=== PATIENT | male | born 1965 | race Caucasian/White ===

== ENCOUNTER → 2020-12-17 07:25 | Outpatient (CLI) | payer OTHER, SELFPAY ==
[2020-12-17 08:14] LABS: Add Manual Diff / Slide Review NO; Basophils Absolute Auto 0 /uL (0-100); Basophils Percent Auto 0.6 % (0-2); Eosinophils Absolute Auto 200 /uL (0-450); Eosinophils Percent Auto 3.5 % (2-4); Hematocrit 47.5 % (41-53); Hemoglobin 16.2 g/dL (13.5-17.5); Lymphocytes Absolute Auto 1300 /uL (1100-4500); Lymphocytes Percent Auto 25.3 % (25-40); Mean Corpuscular HGB Conc 34.2 % (30-36); Mean Corpuscular Hemoglobin 30.6 PG (26-34); Mean Corpuscular Volume 89.6 fL (80-100); Monocytes Absolute Auto 400 /uL (0-900); Monocytes Percent Auto 7.2 % (3-14); Neutrophils Absolute Auto 3300 /uL (1500-7000); Neutrophils Percent Auto 63.4 % (50-75); Platelet Count 128 X10^3/uL (150-400); Red Cell Distribution Width 13.2 % (11.6-14.8); White Blood Cell Count 5.1 X10^3/uL (4.5-11.0)
[2020-12-17 08:36] LABS: Alanine Aminotransferase 41 IU/L (<50); Albumin 4.7 g/dL (3.5-5.0); Albumin Globulin Ratio 1.8 (1.0-2.8); Alkaline Phosphatase 52 U/L (38-126); Aspartate Aminotransferase 29 IU/L (17-59); BUN Creatinine Ratio 19.8 (6-22); Bilirubin Total 0.8 mg/dL (0.2-1.3); Blood Urea Nitrogen 21 mg/dL (9-20); Calcium 9.6 mg/dL (8.4-10.2); Carbon Dioxide 29 mmol/L (22-32); Chloride 106 mmol/L (98-107); Cholesterol 187 mg/dL (140-199); Estimated Glomerular Filt Rate > 60.0 mL/min (>60); Globulin 2.6 g/dL (1.7-4.1); Glucose 113 mg/dL (70-100); HDL Cholesterol 49 mg/dL (40-60); HEMOLYSIS < 15 (0-50); LDL Cholesterol Calculated 120 mg/dL (<100); Potassium 5.1 mmol/L (3.4-5.1); Sodium 141 mmol/L (137-145); Total Protein 7.3 g/dL (6.3-8.2); Triglycerides 88 mg/dL (35-150)
[2020-12-17 08:51] LABS: Vitamin D 25 Hydroxy (D3) 52.1 ng/mL (30.0-100.0)
[2020-12-17 09:07] LABS: TSH w/ Reflex to FT4 2.31 uIU/mL (0.47-4.68)
[2020-12-17 09:08] LABS: Prostate Specific Antigen 0.649 ng/mL (0.10-4.00)
== END ==
PROVIDERS: PCP Family Medicine; Referring Provider Family Medicine; Visit Provider Family Medicine
DX: E55.9 Vitamin D deficiency, unspecified (principal); E78.5 Hyperlipidemia, unspecified; Z12.5 Encounter for screening for malignant neoplasm of prostate; Z13.29 Encounter for screening for other suspected endocrine disorder
CPT/HCPCS: 36415; 80053; 80061; 82306; 84153; 84443; 85025

== ENCOUNTER → 2022-04-05 07:04 | Outpatient (CLI) | payer OTHER, SELFPAY ==
[2022-04-05 08:04] LABS: Add Manual Diff / Slide Review NO; Basophils Absolute Auto 0 /uL (0-100); Basophils Percent Auto 0.6 % (0-2); Eosinophils Absolute Auto 200 /uL (0-450); Eosinophils Percent Auto 3.2 % (2-4); Hematocrit 45.5 % (41-53); Hemoglobin 15.5 g/dL (13.5-17.5); Lymphocytes Absolute Auto 1500 /uL (1100-4500); Lymphocytes Percent Auto 28.9 % (25-40); Mean Corpuscular HGB Conc 34.1 % (30-36); Mean Corpuscular Hemoglobin 30.2 PG (26-34); Mean Corpuscular Volume 88.6 fL (80-100); Monocytes Absolute Auto 400 /uL (0-900); Monocytes Percent Auto 7.5 % (3-14); Neutrophils Absolute Auto 3000 /uL (1500-7000); Neutrophils Percent Auto 59.8 % (50-75); Platelet Count 137 X10^3/uL (150-400); Red Blood Cell Count 5.14 X10^6/uL (4.5-5.9); Red Cell Distribution Width 13.2 % (11.6-14.8)
[2022-04-05 08:31] LABS: BUN Creatinine Ratio 15.4 (6-22); Blood Urea Nitrogen 16 mg/dL (9-20); Calcium 9.1 mg/dL (8.4-10.2); Carbon Dioxide 29 mmol/L (22-32); Chloride 106 mmol/L (98-107); Cholesterol 176 mg/dL (140-199); Estimated Glomerular Filt Rate > 60 mL/min (>60); Glucose 102 mg/dL (70-100); HDL Cholesterol 46 mg/dL (40-60); HEMOLYSIS < 15 (0-50); LDL Cholesterol Calculated 112 mg/dL (<100); Potassium 4.2 mmol/L (3.4-5.1); Sodium 141 mmol/L (137-145); Triglycerides 90 mg/dL (35-150)
[2022-04-05 08:55] LABS: Prostate Specific Antigen Scrn 0.671 ng/mL (0.1-4.0)
== END ==
PROVIDERS: PCP Family Medicine; Referring Provider Family Medicine; Visit Provider Family Medicine
DX: E78.2 Mixed hyperlipidemia (principal); Z12.5 Encounter for screening for malignant neoplasm of prostate
CPT/HCPCS: 36415; 80048; 80061; 85025; G0103

== ENCOUNTER → 2022-04-06 08:33 | Outpatient (CLI) | payer OTHER, SELFPAY ==
[2022-04-07 07:39] LABS: Fecal Immunochemical Test Negative (Negative)
== END ==
PROVIDERS: PCP Family Medicine; Referring Provider Family Medicine; Visit Provider Family Medicine
DX: Z12.11 Encounter for screening for malignant neoplasm of colon (principal)
CPT/HCPCS: 82274

== ENCOUNTER 2022-11-24 16:00 | Outpatient (RCR) | payer OTHER, SELFPAY ==
--- NOTE | 2022-07-27 12:25 | PT.OIE ---
Current Diagnoses Pain in left knee (07/27/22) Muscle weakness (generalized) (07/27/22) Difficulty in walking, not elsewhere classified (07/27/22) Past Medical History (Last Updated 04/01/22 @ 15:39 by Salvador Costello DO) Chicken pox (~1977) Chronic foot pain (~2004) Chronic neck and back pain (~2004) Chronic neck pain Chronic pain of left knee Eczema (~2006) Flu-like symptoms Hyperlipidemia Migraines (~1989) Patellofemoral syndrome Screen for colon cancer Shoulder pain (~2004) Sinusitis URI with cough and congestion Past Surgical History (Last Reviewed 02/12/20 @ 09:46 by Salvador Costello DO) H/O vasectomy (~2002) Visit Care Team Role Provider Type Other Providers Specialty: Address: Phone: Fax: Email: Salvador Costello DO Family Provider Physician Primary Care Provider Specialty: Family Practice Address: [address] [place] [address], [id number] Email: GOLD Saunders Attending Provider Non-Staff Referring Provider Specialty: Nursing [facility] [address] [place], [address] Email: Physical Therapy Initial Evaluation PT-OP-A Visit Information Start: 07/26/22 17:51 Freq: Status: Active Protocol: Document 07/27/22 10:47 [facility] (Rec: 07/27/22 12:25 [facility] [id number]) Out-Patient Physical Therapy Visit Information Visit Information Visit Type Initial Evaluation Visit Start Time 11:19 Visit Stop Time 12:03 Total Visit Minutes 44 Visit Number 10/31 Number of PHARMACEUTICAL DETAILER Visits 0 PT-OP-B Current Condition Start: 07/26/22 17:51 Freq: Status: Active Protocol: Document 07/27/22 10:47 [facility] (Rec: 07/27/22 12:25 [facility] [id number]) Current Condition History of Current Condition Onset Date 30 years Current Complaints L knee pain History of Current Condition Pt reports knee pain is an old issue that is ongoing that has just gotten worse. It started 30 years ago from twisting it in snow shoes in [place] and banged it. About 1 year ago, was bending down to do soething and he had a sudden sharp pain in L knee and it swelled up and stiffened up. SInce then, it sometimes feels like he is hyperextending it when he is going down hill or steps down and hurts. Pain is under knee cap but stiffness is more lat. No Xrays or MRIs. If he straigthens it and engages quads, it hurts.Pt reports also back issues. 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 Typically he walks for exercise 2x/day. HIs knee limits him. Typically, he would do a total of a couple miles a day w/his [employer]. He would like to be able to walk 3+ miles at a time. It gets to a point at about 2 miles then he starts to get pain and if he over does it - it starts swelling. Sometimes when going down curb , he get a little popping then it stiffens and swells. Last week he went hunting and that was difficult d/t having to walk on a lot of rocks and he says i paid for it. Pt wears custom orthotics d/t hammer toes and plantar fascitis B Prior Treatments and Tests none Treatment Goals Patient/Caregiver Goals Be able to walk longer distances, be able to walk w/o worry of hurting it, be able to do stairs and hills, be able to squat and get up/dwon from chair w/o pain. PT-OP-C Subjective Start: 07/26/22 17:51 Freq: Status: Active Protocol: Document 07/27/22 10:47 [facility] (Rec: 07/27/22 12:25 [facility] [id number]) Patient Questionnaires Lower Extremity Functional Scale LEFS Score 48 OP-PT Pain Assessment Location L knee Pain Location Details ant knee pain, lat knee stiffness Intensity 7 Scale Used Numeric (0 - 10) Description Dull,Sharp Description- Other stiffness; starts sharp then gets dull Frequency Frequent Pain Aggravating Factors Stair Climbing,Bending,Lifting Other Pain Aggravating Factors down stairs, down hills, uneven surfaces, sit too long, squat, sit to stand Pain Alleviating Factors Cold,Medication PT-OP-D Balance Start: 07/26/22 17:51 Freq: Status: Active Protocol: Document 07/27/22 10:47 [facility] (Rec: 07/27/22 12:25 [facility] [id number]) Balance Tests Single Limb Standing Single Limb- Right >30 sec Single Limb- Left >30 sec but more UE use and more wobbly-lat shear PT-OP-F Manual Assessment Start: 07/26/22 17:51 Freq: Status: Active Protocol: Document 07/27/22 10:47 [facility] (Rec: 07/27/22 12:25 [facility] [id number]) Manual Assessments Soft Tissue Assessment Soft Tissue Mobility Assessment med joint line tenderness, tightness of ITB, VL, VMO, HS, Calf Joint Mobility Assessment Joint Mobility Assessment IR of femur L; R ER; B ER of tibia, ER of R foot>L; more lat patella L PT-OP-G Mobility & Gait Start: 07/26/22 17:51 Freq: Status: Active Protocol: Document 07/27/22 10:47 [facility] (Rec: 07/27/22 12:25 [facility] [id number]) OP Gait Assessment Comments Gait Comments dec push off L>R , dec stance time L PT-OP-J Posture/Palpation/Skin Start: 07/26/22 17:51 Freq: Status: Active Protocol: Document 07/27/22 10:47 [facility] (Rec: 07/27/22 12:25 [facility] [id number]) Posture Evaluation [facility] Postural Classification System Lumbar Protective Mechanism Left AP 0 Lumbar Protective Mechanism Right AP 1 Lumbar Protective Mechanism Left PA 1 Lumbar Protective Mechanism Right PA 1 PT-OP-K Range of Motion Start: 07/26/22 17:51 Freq: Status: Active Protocol: Document 07/27/22 10:47 [facility] (Rec: 07/27/22 12:25 [facility] [id number]) Knee Goniometric Range of Motion Knee Right Flexion Active (degrees) 130 Extension Active (degrees) 4 Comments ankle ROM B: knee to walk 4.25 in B Left Flexion Active (degrees) 125 Extension Active (degrees) 8 Comments pain under patella PT-OP-L Special Tests Start: 07/26/22 17:51 Freq: Status: Active Protocol: Document 07/27/22 10:47 [facility] (Rec: 07/27/22 12:25 [facility] [id number]) Special Tests Knee Special Tests Teodoro's Test Test Results positive B tightness Meyer's Compression Test Results neg L Apley's Compression Test Results neg L Thessaly Test 5 Degrees Test Results neg L Fredrick Test Test Results neg L Tripp Chondromalacia Test Results positive L Fito's Test Results neg L Straight Leg Raise Test Results 45 deg B Gian Test Results positive B for TFL and hip flexor and RF tightness Valgus- 25 Degrees Comments mild pain and laxity L Varus- 25 Degrees Test Results neg L Posterior Draw Test Results neg L PT-OP-M Strength Start: 07/26/22 17:51 Freq: Status: Active Protocol: Document 07/27/22 10:47 [facility] (Rec: 07/27/22 12:25 [facility] [id number]) Hip Strength Hip Manual Muscle Testing Right Flexion (L2) 5 Normal Extension (S1) 4 Good Abduction 5 Normal Adduction 4+ Good+ External Rotation 5 Normal Internal Rotation 5 Normal Left Flexion (L2) 3+ Fair+ Extension (S1) 4- Good- Abduction 4 Good Adduction 3+ Fair+ External Rotation 4+ Good+ Internal Rotation 4- Good- Knee Strength Knee Manual Muscle Testing Right Flexion (S2) 5 Normal Extension (L3) 5 Normal Left Flexion (S2) 4 Good Extension (L3) 4 Good Comments pain ext Ankle/Foot Strength Ankle and Foot Manual Muscle Testing Right Dorsiflexion (L4) 5 Normal Plantarflexion (S1) 5 Normal Comments 20 heel raises B Left Dorsiflexion (L4) 5 Normal Plantarflexion (S1) 5 Normal Comments cues required for heel raises to keep knee straight-pain in knee-twinging PT-OP-T Assessment and Plan Start: 07/26/22 17:51 Freq: Status: Active Protocol: Document 07/27/22 10:47 [facility] (Rec: 07/27/22 12:25 [facility] [id number]) Physical Therapy Assessment Rehab Potential Rehabilitation Potential Good Evaluation Complexity Number of Personal Factors/Comorbidities 3 or More Number of Body Systems Impaired 4 or More Clinical Presentation at Evaluation Evolving Impairments Impairments Activity Tolerance,Balance, Functional Activities, Functional Mobility,Gait,Pain, Posture,ROM,Soft Tissue Mobility,Strength Goals balance Short Term Goal (STG) Pt will be able to do 30sec SLS on LLE w/o lat shear or signficiant instability to show ability to wt accept in LLE STG Duration 09/15 Student Assistant Goal (LTG) Pt will report no difficulty w /knee on uneven surfaces. LTG Duration 10/19/22 activities Short Term Goal (STG) Pt will be able to stand from a chair w/o pain in L knee STG Duration 09/15 Student Assistant Goal (LTG) Pt will be able to walk at least 3 miles on uneven surfaces w/o inc knee pain or swelling. LTG Duration 10/19/22 strength Short Term Goal (STG) Pt will be indep w/HEP STG Duration 09/15 Student Assistant Goal (LTG) pt will score at least 3/5 on LPM and 5/5 BLE strength w/o pain to show improved stability in order to inc pt ability to perform activity. LTG Duration 10/19/22 stairs Short Term Goal (STG) Pt will be able to ascend stairs without any pain in knee. STG Duration 09/15 Halfway Goal (LTG) Pt will be able to descend stairs without any pain in knee. LTG Duration 10/19/22 Assessment Summary Assessment Pt presents w/chronic knee pain (>30 years) with worsening in the past year and no history of treatment. He shows signs of mild med instability at MCL and has tenderness at joint line but no positive testing w/meniscal testing. He does have opposing rotations at tibfem joint which likely inc stress on knee and inc pt's lateral tracking of L patella which is likely a big culpret of his pain and swelling. He would benefit from skilled PT with focus on stability of hip, knee, ankle and core and improving mechanics to improve his ability to do ADLs and activity. Physical Therapy Plan Frequency and Duration Duration of treatment (weeks) 12 Plan of Care Start Date 07/27/22 Plan of Care End Date 10/19/22 Therapeutic Interventions Therapeutic Interventions Aquatic Therapy,Balance Training,Gait Training,Home Exercise Program,Joint Mobilizations,Manual Therapy, Neuromuscular Re-education, Orthotic/Prosthetic Management ,Patient/Caregiver Education, Self-Care/Home Management,Soft Tissue Mobilization,Taping, Therapeutic Activities, Therapeutic Exercises Modalities Cold Pack/Ice Massage,Electric Stimulation,Hot Packs, Infrared Therapy,Ultrasound Next Visit Focus/Plan Next Note Type Treatment Note Next Visit Plan start on bike, try mini squats , TKE standing w/tband, HS active stretch, bridge, teach roll out on foam roll and w/ roller, manual: ITB, quad STM, patellar mobs, tibfem mobs
--- NOTE | 2022-07-27 12:25 | PT.OPPOC ---
Physical, Occupational & Speech Therapy At [facility] Current Diagnoses Pain in left knee (07/27/22) Muscle weakness (generalized) (07/27/22) Difficulty in walking, not elsewhere classified (07/27/22) Visit Care Team Role Provider Type Other Providers Specialty: Address: Phone: Fax: Email: Salvador Costello DO Family Provider Physician Primary Care Provider Specialty: Family Practice Address: [address] [place] [address], [phone] Email: GOLD Saunders Attending Provider Non-Staff Referring Provider Specialty: Nursing [facility] [address], [place], [address] Email: Plan Of Care PT-OP-T Assessment and Plan Start: 07/26/22 17:51 Freq: Status: Active Protocol: Document 07/27/22 10:47 [facility] (Rec: 07/27/22 12:25 [facility] [id number]) Physical Therapy Assessment Rehab Potential Rehabilitation Potential Good Evaluation Complexity Number of Personal Factors/Comorbidities 3 or More Number of Body Systems Impaired 4 or More Clinical Presentation at Evaluation Evolving Impairments Impairments Activity Tolerance,Balance, Functional Activities, Functional Mobility,Gait,Pain, Posture,ROM,Soft Tissue Mobility,Strength Goals balance Short Term Goal (STG) Pt will be able to do 30sec SLS on LLE w/o lat shear or signficiant instability to show ability to wt accept in LLE STG Duration 09/15 Prison Goal (LTG) Pt will report no difficulty w /knee on uneven surfaces. LTG Duration 10/19/22 activities Short Term Goal (STG) Pt will be able to stand from a chair w/o pain in L knee STG Duration 09/15 Prison Goal (LTG) Pt will be able to walk at least 3 miles on uneven surfaces w/o inc knee pain or swelling. LTG Duration 10/19/22 strength Short Term Goal (STG) Pt will be indep w/HEP STG Duration 09/15 Route Cdl Driver Goal (LTG) pt will score at least 3/5 on LPM and 5/5 BLE strength w/o pain to show improved stability in order to inc pt ability to perform activity. LTG Duration 10/19/22 stairs Short Term Goal (STG) Pt will be able to ascend stairs without any pain in knee. STG Duration 09/15 Prison Goal (LTG) Pt will be able to descend stairs without any pain in knee. LTG Duration 10/19/22 Assessment Summary Assessment Pt presents w/chronic knee pain (>30 years) with worsening in the past year and no history of treatment. He shows signs of mild med instability at MCL and has tenderness at joint line but no positive testing w/meniscal testing. He does have opposing rotations at tibfem joint which likely inc stress on knee and inc pt's lateral tracking of L patella which is likely a big culpret of his pain and swelling. He would benefit from skilled PT with focus on stability of hip, knee, ankle and core and improving mechanics to improve his ability to do ADLs and activity. Physical Therapy Plan Frequency and Duration Duration of treatment (weeks) 12 Plan of Care Start Date 07/27/22 Plan of Care End Date 10/19/22 Therapeutic Interventions Therapeutic Interventions Aquatic Therapy,Balance Training,Gait Training,Home Exercise Program,Joint Mobilizations,Manual Therapy, Neuromuscular Re-education, Orthotic/Prosthetic Management ,Patient/Caregiver Education, Self-Care/Home Management,Soft Tissue Mobilization,Taping, Therapeutic Activities, Therapeutic Exercises Modalities Cold Pack/Ice Massage,Electric Stimulation,Hot Packs, Infrared Therapy,Ultrasound Next Visit Focus/Plan Next Note Type Treatment Note Next Visit Plan start on bike, try mini squats , TKE standing w/tband, HS active stretch, bridge, teach roll out on foam roll and w/ roller, manual: ITB, quad STM, patellar mobs, tibfem mobs Plan of Care Dates Plan of Care Start Date 07/27/22 Plan of Care End Date 10/19/22 Electronically Signed by: Kim Guzman, PT 07/27/22 3320 If you are in agreement with this Plan of Care, please return a signed and dated copy. I have reviewed this Plan of Care and certify that the skilled therapy services above are required to meet the patient?s needs. Physician Signature Date Printed Name and Credentials Clinical Instructor Signature Printed Name and Credentials
--- NOTE | 2022-08-06 09:00 | PT.OTN ---
Current Diagnoses Pain in left knee (08/06/22) Muscle weakness (generalized) (08/06/22) Difficulty in walking, not elsewhere classified (08/06/22) Physical Therapy Treatment Note PT-OP-A Visit Information Start: 07/26/22 17:51 Freq: Status: Active Protocol: Document 08/06/22 08:12 SP (Rec: 08/06/22 09:04 SP [id number]) Out-Patient Physical Therapy Visit Information Visit Information Visit Type Initial Evaluation Visit Start Time 08:15 Visit Stop Time 09:00 Total Visit Minutes 45 Visit Number 12/01 Number of EMR ANALYST Visits 1 PT-OP-B Current Condition Start: 07/26/22 17:51 Freq: Status: Active Protocol: Document 07/27/22 10:47 [facility] (Rec: 07/27/22 12:25 [facility] [id number]) Current Condition History of Current Condition Onset Date 30 years Current Complaints L knee pain History of Current Condition Pt reports knee pain is an old issue that is ongoing that has just gotten worse. It started 30 years ago from twisting it in snow shoes in [place] and banged it. About 1 year ago, was bending down to do soething and he had a sudden sharp pain in L knee and it swelled up and stiffened up. SInce then, it sometimes feels like he is hyperextending it when he is going down hill or steps down and hurts. Pain is under knee cap but stiffness is more lat. No Xrays or MRIs. If he straigthens it and engages quads, it hurts.Pt reports also back issues. 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 Typically he walks for exercise 2x/day. HIs knee limits him. Typically, he would do a total of a couple miles a day w/his [employer]. He would like to be able to walk 3+ miles at a time. It gets to a point at about 2 miles then he starts to get pain and if he over does it - it starts swelling. Sometimes when going down curb , he get a little popping then it stiffens and swells. Last week he went hunting and that was difficult d/t having to walk on a lot of rocks and he says i paid for it. Pt wears custom orthotics d/t hammer toes and plantar fascitis B Prior Treatments and Tests none Treatment Goals Patient/Caregiver Goals Be able to walk longer distances, be able to walk w/o worry of hurting it, be able to do stairs and hills, be able to squat and get up/dwon from chair w/o pain. PT-OP-C Subjective Start: 07/26/22 17:51 Freq: Status: Active Protocol: Document 08/06/22 08:12 SP (Rec: 08/06/22 09:04 SP [id number]) OP-PT Subjective Patient Comments Patient Comments Pt reports is R foot flared up after last tx with assessments had to perform, past issues and at some point will need to be looked at/ worke on. Has long history of LBP and tightness in HS that has caused plantarfascitis. R> L HS tightness reported. PT-OP-D Balance Start: 07/26/22 17:51 Freq: Status: Active Protocol: Document 07/27/22 10:47 [facility] (Rec: 07/27/22 12:25 [facility] [id number]) Balance Tests Single Limb Standing Single Limb- Right >30 sec Single Limb- Left >30 sec but more UE use and more wobbly-lat shear PT-OP-F Manual Assessment Start: 07/26/22 17:51 Freq: Status: Active Protocol: Document 07/27/22 10:47 [facility] (Rec: 07/27/22 12:25 [facility] [id number]) Manual Assessments Soft Tissue Assessment Soft Tissue Mobility Assessment med joint line tenderness, tightness of ITB, VL, VMO, HS, Calf Joint Mobility Assessment Joint Mobility Assessment IR of femur L; R ER; B ER of tibia, ER of R foot>L; more lat patella L PT-OP-G Mobility & Gait Start: 07/26/22 17:51 Freq: Status: Active Protocol: Document 07/27/22 10:47 [facility] (Rec: 07/27/22 12:25 [facility] [id number]) OP Gait Assessment Comments Gait Comments dec push off L>R , dec stance time L PT-OP-J Posture/Palpation/Skin Start: 07/26/22 17:51 Freq: Status: Active Protocol: Document 07/27/22 10:47 [facility] (Rec: 07/27/22 12:25 [facility] [id number]) Posture Evaluation Raymond Postural Classification System Lumbar Protective Mechanism Left AP 0 Lumbar Protective Mechanism Right AP 1 Lumbar Protective Mechanism Left PA 1 Lumbar Protective Mechanism Right PA 1 PT-OP-K Range of Motion Start: 07/26/22 17:51 Freq: Status: Active Protocol: Document 07/27/22 10:47 [facility] (Rec: 07/27/22 12:25 [facility] [id number]) Knee Goniometric Range of Motion Knee Right Flexion Active (degrees) 130 Extension Active (degrees) 4 Comments ankle ROM B: knee to walk 4.25 in B Left Flexion Active (degrees) 125 Extension Active (degrees) 8 Comments pain under patella PT-OP-L Special Tests Start: 07/26/22 17:51 Freq: Status: Active Protocol: Document 07/27/22 10:47 [facility] (Rec: 07/27/22 12:25 [facility] [id number]) Special Tests Knee Special Tests Teodoro's Test Test Results positive B tightness Meyer's Compression Test Results neg L Apley's Compression Test Results neg L Thessaly Test 5 Degrees Test Results neg L Fredrick Test Test Results neg L Tripp Chondromalacia Test Results positive L Fito's Test Results neg L Straight Leg Raise Test Results 45 deg B Gian Test Results positive B for TFL and hip flexor and RF tightness Valgus- 25 Degrees Comments mild pain and laxity L Varus- 25 Degrees Test Results neg L Posterior Draw Test Results neg L PT-OP-M Strength Start: 07/26/22 17:51 Freq: Status: Active Protocol: Document 07/27/22 10:47 [facility] (Rec: 07/27/22 12:25 [facility] [id number]) Hip Strength Hip Manual Muscle Testing Right Flexion (L2) 5 Normal Extension (S1) 4 Good Abduction 5 Normal Adduction 4+ Good+ External Rotation 5 Normal Internal Rotation 5 Normal Left Flexion (L2) 3+ Fair+ Extension (S1) 4- Good- Abduction 4 Good Adduction 3+ Fair+ External Rotation 4+ Good+ Internal Rotation 4- Good- Knee Strength Knee Manual Muscle Testing Right Flexion (S2) 5 Normal Extension (L3) 5 Normal Left Flexion (S2) 4 Good Extension (L3) 4 Good Comments pain ext Ankle/Foot Strength Ankle and Foot Manual Muscle Testing Right Dorsiflexion (L4) 5 Normal Plantarflexion (S1) 5 Normal Comments 20 heel raises B Left Dorsiflexion (L4) 5 Normal Plantarflexion (S1) 5 Normal Comments cues required for heel raises to keep knee straight-pain in knee-twinging PT-OP-Q Treatments Start: 07/26/22 17:51 Freq: Status: Active Protocol: Document 08/06/22 08:12 SP (Rec: 08/06/22 09:04 SP [id number]) Cardio Equipment Bicycle (Upright) Duration (Minutes) 6 Resistance 7 Seat Position 10 Other 78RPMs, Therapeutic Exercises Supine Exercises bridges Supine Exercise Name added to HEP: little wobbly core/ hip abd- cued slow Resistance AROM Reps/Minutes 5 s hold x10 reps Comments cued TA, neutral pelvis, bridge hold tolerant range: glut/quad fac Sitting Exercises stretching Sitting Exercise Name 1. HS 2. Piriformis stretching Side left Reps/Minutes 60 sec Comments good feedback response Standing Exercises TKE Standing Exercise Name added to HEP Side left Resistance TB #3 loop Reps/Minutes 3 sec hold [id number] Comments improved decrease pain L knee post self STMs and K taping Mini squat Standing Exercise Name added to HEP Side left Equipment Used hands light Reps/Minutes 5 sec hold x10 Comments cued knee alignment with and behind toes Other Exercises Self STMs Other Exercise Name added for home/work: HS, quad, ITB, calf; LB/glut ball on wal Side bilateral Equipment Used rolling pin vs foam roller Comments good feedback response to both Manual Therapy Treatment Joint Mobilizations Patella mobs Joint L Direction med/lat/ inf/superior glides Grade II Body Position Sitting Comments LLE extended Tends to track Taping ktaping Body Location L Comments medial glide around patella, C lateral taping Self-Care/Home Management Treatment Education Patient Education Home Exercise Program,Joint Protection,Pain Management Other Education Added bridging, TKE, Mini squat, STMs self, Ktaping L knee. PT-OP-T Assessment and Plan Start: 07/26/22 17:51 Freq: Status: Active Protocol: Document 08/06/22 08:12 SP (Rec: 08/06/22 09:04 SP [id number]) Physical Therapy Assessment Goals balance Short Term Goal (STG) Pt will be able to do 30sec SLS on LLE w/o lat shear or signficiant instability to show ability to wt accept in LLE STG Duration 11/30 Jail Goal (LTG) Pt will report no difficulty w /knee on uneven surfaces. LTG Duration 10/19/22 activities Short Term Goal (STG) Pt will be able to stand from a chair w/o pain in L knee STG Duration 09/15 [employer] Goal (LTG) Pt will be able to walk at least 3 miles on uneven surfaces w/o inc knee pain or swelling. LTG Duration 10/19/22 strength Short Term Goal (STG) Pt will be indep w/HEP STG Duration 09/15 [employer] Goal (LTG) pt will score at least 3/5 on LPM and 5/5 BLE strength w/o pain to show improved stability in order to inc pt ability to perform activity. LTG Duration 10/19/22 stairs Short Term Goal (STG) Pt will be able to ascend stairs without any pain in knee. STG Duration 09/15 [employer] Goal (LTG) Pt will be able to descend stairs without any pain in knee. LTG Duration 10/19/22 Assessment Summary Assessment Pt good feedback to instruction self STMs: ball wall, rolling stick, foam roller for decrease LE muscle tension and proper form for home/work. Added stretching for flexibililty around L knee and applied Ktaping medial support patellar tracking with good response. No adverse affects to TKE or mini squats today to continue at home. Understands how to modify if needed. Physical Therapy Plan Frequency and Duration Duration of treatment (weeks) 12 Plan of Care Start Date 07/27/22 Plan of Care End Date 10/19/22 Therapeutic Interventions Therapeutic Interventions Aquatic Therapy,Balance Training,Gait Training,Home Exercise Program,Joint Mobilizations,Manual Therapy, Neuromuscular Re-education, Orthotic/Prosthetic Management ,Patient/Caregiver Education, Self-Care/Home Management,Soft Tissue Mobilization,Taping, Therapeutic Activities, Therapeutic Exercises Modalities Cold Pack/Ice Massage,Electric Stimulation,Hot Packs, Infrared Therapy,Ultrasound Next Visit Focus/Plan Next Note Type Treatment Note Next Visit Plan Continue start on bike, reassess HEP added: mini squats, TKE standing w/tband, HS active stretch, bridge, teach roll out on foam roll and w/roller, manual: ITB, quad STM, patellar mobs performed last tx. Next assess if need tibfem mobs.
--- NOTE | 2022-08-10 09:00 | PT.OTN ---
Current Diagnoses Pain in left knee (08/10/22) Muscle weakness (generalized) (08/10/22) Difficulty in walking, not elsewhere classified (08/10/22) Physical Therapy Treatment Note PT-OP-A Visit Information Start: 07/26/22 17:51 Freq: Status: Active Protocol: Document 08/10/22 08:20 SP (Rec: 08/10/22 09:03 SP [id number]) Out-Patient Physical Therapy Visit Information Visit Information Visit Type Treatment Note Visit Note CHANEL Elena provided instruction and manual with pt under direct supervision of IDALMIS Deras. Visit Start Time 08:20 Visit Stop Time 09:00 Total Visit Minutes 40 Visit Number 3/15 Number of ONCOLOGY CONSULTANT Visits 2 PT-OP-B Current Condition Start: 07/26/22 17:51 Freq: Status: Active Protocol: Document 07/27/22 10:47 [facility] (Rec: 07/27/22 12:25 [facility] [id number]) Current Condition History of Current Condition Onset Date 30 years Current Complaints L knee pain History of Current Condition Pt reports knee pain is an old issue that is ongoing that has just gotten worse. It started 30 years ago from twisting it in snow shoes in [place] and banged it. About 1 year ago, was bending down to do soething and he had a sudden sharp pain in L knee and it swelled up and stiffened up. SInce then, it sometimes feels like he is hyperextending it when he is going down hill or steps down and hurts. Pain is under knee cap but stiffness is more lat. No Xrays or MRIs. If he straigthens it and engages quads, it hurts.Pt reports also back issues. 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 Typically he walks for exercise 2x/day. HIs knee limits him. Typically, he would do a total of a couple miles a day w/his [employer]. He would like to be able to walk 3+ miles at a time. It gets to a point at about 2 miles then he starts to get pain and if he over does it - it starts swelling. Sometimes when going down curb , he get a little popping then it stiffens and swells. Last week he went hunting and that was difficult d/t having to walk on a lot of rocks and he says i paid for it. Pt wears custom orthotics d/t hammer toes and plantar fascitis B Prior Treatments and Tests none Treatment Goals Patient/Caregiver Goals Be able to walk longer distances, be able to walk w/o worry of hurting it, be able to do stairs and hills, be able to squat and get up/dwon from chair w/o pain. PT-OP-C Subjective Start: 07/26/22 17:51 Freq: Status: Active Protocol: Document 08/10/22 08:20 SP (Rec: 08/10/22 09:03 SP [id number]) OP-PT Subjective Patient Comments Patient Comments Pt report the rolling and K taping helped for couple days, just removed K taping yesterday. He found the bridging toward end reps started to irritate knee so stopped. PT-OP-D Balance Start: 07/26/22 17:51 Freq: Status: Active Protocol: Document 07/27/22 10:47 [facility] (Rec: 07/27/22 12:25 [facility] [id number]) Balance Tests Single Limb Standing Single Limb- Right >30 sec Single Limb- Left >30 sec but more UE use and more wobbly-lat shear PT-OP-F Manual Assessment Start: 07/26/22 17:51 Freq: Status: Active Protocol: Document 07/27/22 10:47 [facility] (Rec: 07/27/22 12:25 [facility] [id number]) Manual Assessments Soft Tissue Assessment Soft Tissue Mobility Assessment med joint line tenderness, tightness of ITB, VL, VMO, HS, Calf Joint Mobility Assessment Joint Mobility Assessment IR of femur L; R ER; B ER of tibia, ER of R foot>L; more lat patella L PT-OP-G Mobility & Gait Start: 07/26/22 17:51 Freq: Status: Active Protocol: Document 07/27/22 10:47 [facility] (Rec: 07/27/22 12:25 [facility] [id number]) OP Gait Assessment Comments Gait Comments dec push off L>R , dec stance time L PT-OP-J Posture/Palpation/Skin Start: 07/26/22 17:51 Freq: Status: Active Protocol: Document 07/27/22 10:47 [facility] (Rec: 07/27/22 12:25 [facility] [id number]) Posture Evaluation Raymond Postural Classification System Lumbar Protective Mechanism Left AP 0 Lumbar Protective Mechanism Right AP 1 Lumbar Protective Mechanism Left PA 1 Lumbar Protective Mechanism Right PA 1 PT-OP-K Range of Motion Start: 07/26/22 17:51 Freq: Status: Active Protocol: Document 07/27/22 10:47 [facility] (Rec: 07/27/22 12:25 [facility] [id number]) Knee Goniometric Range of Motion Knee Right Flexion Active (degrees) 130 Extension Active (degrees) 4 Comments ankle ROM B: knee to walk 4.25 in B Left Flexion Active (degrees) 125 Extension Active (degrees) 8 Comments pain under patella PT-OP-L Special Tests Start: 07/26/22 17:51 Freq: Status: Active Protocol: Document 07/27/22 10:47 [facility] (Rec: 07/27/22 12:25 [facility] [id number]) Special Tests Knee Special Tests Teodoro's Test Test Results positive B tightness Meyer's Compression Test Results neg L Apley's Compression Test Results neg L Thessaly Test 5 Degrees Test Results neg L Fredrick Test Test Results neg L Tripp Chondromalacia Test Results positive L Fito's Test Results neg L Straight Leg Raise Test Results 45 deg B Gian Test Results positive B for TFL and hip flexor and RF tightness Valgus- 25 Degrees Comments mild pain and laxity L Varus- 25 Degrees Test Results neg L Posterior Draw Test Results neg L PT-OP-M Strength Start: 07/26/22 17:51 Freq: Status: Active Protocol: Document 07/27/22 10:47 [facility] (Rec: 07/27/22 12:25 [facility] [id number]) Hip Strength Hip Manual Muscle Testing Right Flexion (L2) 5 Normal Extension (S1) 4 Good Abduction 5 Normal Adduction 4+ Good+ External Rotation 5 Normal Internal Rotation 5 Normal Left Flexion (L2) 3+ Fair+ Extension (S1) 4- Good- Abduction 4 Good Adduction 3+ Fair+ External Rotation 4+ Good+ Internal Rotation 4- Good- Knee Strength Knee Manual Muscle Testing Right Flexion (S2) 5 Normal Extension (L3) 5 Normal Left Flexion (S2) 4 Good Extension (L3) 4 Good Comments pain ext Ankle/Foot Strength Ankle and Foot Manual Muscle Testing Right Dorsiflexion (L4) 5 Normal Plantarflexion (S1) 5 Normal Comments 20 heel raises B Left Dorsiflexion (L4) 5 Normal Plantarflexion (S1) 5 Normal Comments cues required for heel raises to keep knee straight-pain in knee-twinging PT-OP-Q Treatments Start: 07/26/22 17:51 Freq: Status: Active Protocol: Document 08/10/22 08:20 SP (Rec: 08/10/22 09:03 SP [id number]) Therapeutic Exercises Supine Exercises HS, ITB stretch Supine Exercise Name added to HEP Side left Equipment Used strap* vs seated Reps/Minutes 30 x2 Comments good form, very limited Quad set, SLR Supine Exercise Name assessed Side left Reps/Minutes x5 Comments challenged with maintaining full ext, sub patella pain bridges Supine Exercise Name reviewed HEP: improved core stab Resistance AROM Reps/Minutes 5 s hold x10 reps Standing Exercises ITB Stretch Side left Reps/Minutes 3 reps x30 Comments states more hip stretch than distal ITB Other Exercises Self STMs Other Exercise Name added for home/work: HS, quad, ITB, calf; LB/glut ball on wal Side bilateral Equipment Used rolling pin vs foam roller Comments good feedback response to both Manual Therapy Treatment Soft Tissue Mobilization L ITB Mobilization Type Instrument Assisted Intensity/Depth Moderate Body Position Sidelying Comments manual and instruction self with rolling pin and tool friction. Joint Mobilizations Patella mobs Joint L Direction med/lat/ inf/superior glides Grade II Body Position Sitting Comments LLE extended Tends to track Taping ktaping Body Location L Comments medial glide around patella, C lateral taping PT-OP-T Assessment and Plan Start: 07/26/22 17:51 Freq: Status: Active Protocol: Document 08/10/22 08:20 SP (Rec: 08/10/22 09:03 SP [id number]) Physical Therapy Assessment Goals balance Short Term Goal (STG) Pt will be able to do 30sec SLS on LLE w/o lat shear or signficiant instability to show ability to wt accept in LLE STG Duration 09/15 Aerospace Technician Goal (LTG) Pt will report no difficulty w /knee on uneven surfaces. LTG Duration 10/19/22 activities Short Term Goal (STG) Pt will be able to stand from a chair w/o pain in L knee STG Duration 09/15 Aerospace Technician Goal (LTG) Pt will be able to walk at least 3 miles on uneven surfaces w/o inc knee pain or swelling. LTG Duration 10/19/22 strength Short Term Goal (STG) Pt will be indep w/HEP STG Duration 09/15 Aerospace Technician Goal (LTG) pt will score at least 3/5 on LPM and 5/5 BLE strength w/o pain to show improved stability in order to inc pt ability to perform activity. LTG Duration 10/19/22 stairs Short Term Goal (STG) Pt will be able to ascend stairs without any pain in knee. STG Duration 09/15 Aerospace Technician Goal (LTG) Pt will be able to descend stairs without any pain in knee. LTG Duration 10/19/22 Assessment Summary Assessment Pt reported decrease tension post manual ITB, challenged getting distal ITB stretch. Limited HS hip flexion ROM but reported using strap vs seated helped to increase ROM. Physical Therapy Plan Frequency and Duration Duration of treatment (weeks) 12 Plan of Care Start Date 07/27/22 Plan of Care End Date 10/19/22 Therapeutic Interventions Therapeutic Interventions Aquatic Therapy,Balance Training,Gait Training,Home Exercise Program,Joint Mobilizations,Manual Therapy, Neuromuscular Re-education, Orthotic/Prosthetic Management ,Patient/Caregiver Education, Self-Care/Home Management,Soft Tissue Mobilization,Taping, Therapeutic Activities, Therapeutic Exercises Modalities Cold Pack/Ice Massage,Electric Stimulation,Hot Packs, Infrared Therapy,Ultrasound Next Visit Focus/Plan Next Note Type Treatment Note Next Visit Plan Continue start on bike, reassess HEP added: mini squats, TKE standing w/tband, HS active stretch, bridge, teach roll out on foam roll and w/roller, manual: ITB, quad STM, patellar mobs performed last tx. Next assess if need tibfem mobs.
--- NOTE | 2022-08-12 08:21 | PT.OTN ---
Current Diagnoses Pain in left knee (08/12/22) Muscle weakness (generalized) (08/12/22) Difficulty in walking, not elsewhere classified (08/12/22) Physical Therapy Treatment Note PT-OP-A Visit Information Start: 07/26/22 17:51 Freq: Status: Active Protocol: Document 08/12/22 07:30 [facility] (Rec: 08/12/22 08:21 [facility] [id number]) Out-Patient Physical Therapy Visit Information Visit Information Visit Type Treatment Note Visit Start Time 07:32 Visit Stop Time 08:14 Total Visit Minutes 42 Visit Number 4/15 Number of HOME HEALTH CARE PROVIDER Visits 0 PT-OP-B Current Condition Start: 07/26/22 17:51 Freq: Status: Active Protocol: Document 07/27/22 10:47 [facility] (Rec: 07/27/22 12:25 [facility] [id number]) Current Condition History of Current Condition Onset Date 30 years Current Complaints L knee pain History of Current Condition Pt reports knee pain is an old issue that is ongoing that has just gotten worse. It started 30 years ago from twisting it in snow shoes in [place] and banged it. About 1 year ago, was bending down to do soething and he had a sudden sharp pain in L knee and it swelled up and stiffened up. SInce then, it sometimes feels like he is hyperextending it when he is going down hill or steps down and hurts. Pain is under knee cap but stiffness is more lat. No Xrays or MRIs. If he straigthens it and engages quads, it hurts.Pt reports also back issues. 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 Typically he walks for exercise 2x/day. HIs knee limits him. Typically, he would do a total of a couple miles a day w/his [place]. He would like to be able to walk 3+ miles at a time. It gets to a point at about 2 miles then he starts to get pain and if he over does it - it starts swelling. Sometimes when going down curb , he get a little popping then it stiffens and swells. Last week he went hunting and that was difficult d/t having to walk on a lot of rocks and he says i paid for it. Pt wears custom orthotics d/t hammer toes and plantar fascitis B Prior Treatments and Tests none Treatment Goals Patient/Caregiver Goals Be able to walk longer distances, be able to walk w/o worry of hurting it, be able to do stairs and hills, be able to squat and get up/dwon from chair w/o pain. PT-OP-C Subjective Start: 07/26/22 17:51 Freq: Status: Active Protocol: Document 08/12/22 07:30 [facility] (Rec: 08/12/22 08:21 [facility] [id number]) OP-PT Subjective Patient Comments Patient Comments Pt reports he doesn't know if KTape helps. NOtes TKE still painful PT-OP-D Balance Start: 07/26/22 17:51 Freq: Status: Active Protocol: Document 07/27/22 10:47 [facility] (Rec: 07/27/22 12:25 [facility] [id number]) Balance Tests Single Limb Standing Single Limb- Right >30 sec Single Limb- Left >30 sec but more UE use and more wobbly-lat shear PT-OP-F Manual Assessment Start: 07/26/22 17:51 Freq: Status: Active Protocol: Document 07/27/22 10:47 [facility] (Rec: 07/27/22 12:25 [facility] [id number]) Manual Assessments Soft Tissue Assessment Soft Tissue Mobility Assessment med joint line tenderness, tightness of ITB, VL, VMO, HS, Calf Joint Mobility Assessment Joint Mobility Assessment IR of femur L; R ER; B ER of tibia, ER of R foot>L; more lat patella L PT-OP-G Mobility & Gait Start: 07/26/22 17:51 Freq: Status: Active Protocol: Document 07/27/22 10:47 [facility] (Rec: 07/27/22 12:25 [facility] [id number]) OP Gait Assessment Comments Gait Comments dec push off L>R , dec stance time L PT-OP-J Posture/Palpation/Skin Start: 07/26/22 17:51 Freq: Status: Active Protocol: Document 07/27/22 10:47 [facility] (Rec: 07/27/22 12:25 [facility] [id number]) Posture Evaluation [facility] Postural Classification System Lumbar Protective Mechanism Left AP 0 Lumbar Protective Mechanism Right AP 1 Lumbar Protective Mechanism Left PA 1 Lumbar Protective Mechanism Right PA 1 PT-OP-K Range of Motion Start: 07/26/22 17:51 Freq: Status: Active Protocol: Document 07/27/22 10:47 [facility] (Rec: 07/27/22 12:25 [facility] [id number]) Knee Goniometric Range of Motion Knee Right Flexion Active (degrees) 130 Extension Active (degrees) 4 Comments ankle ROM B: knee to walk 4.25 in B Left Flexion Active (degrees) 125 Extension Active (degrees) 8 Comments pain under patella PT-OP-L Special Tests Start: 07/26/22 17:51 Freq: Status: Active Protocol: Document 07/27/22 10:47 [facility] (Rec: 07/27/22 12:25 [facility] [id number]) Special Tests Knee Special Tests Teodoro's Test Test Results positive B tightness Meyer's Compression Test Results neg L Apley's Compression Test Results neg L Thessaly Test 5 Degrees Test Results neg L Fredrick Test Test Results neg L Tripp Chondromalacia Test Results positive L Fito's Test Results neg L Straight Leg Raise Test Results 45 deg B Gian Test Results positive B for TFL and hip flexor and RF tightness Valgus- 25 Degrees Comments mild pain and laxity L Varus- 25 Degrees Test Results neg L Posterior Draw Test Results neg L PT-OP-M Strength Start: 07/26/22 17:51 Freq: Status: Active Protocol: Document 07/27/22 10:47 [facility] (Rec: 07/27/22 12:25 [facility] [id number]) Hip Strength Hip Manual Muscle Testing Right Flexion (L2) 5 Normal Extension (S1) 4 Good Abduction 5 Normal Adduction 4+ Good+ External Rotation 5 Normal Internal Rotation 5 Normal Left Flexion (L2) 3+ Fair+ Extension (S1) 4- Good- Abduction 4 Good Adduction 3+ Fair+ External Rotation 4+ Good+ Internal Rotation 4- Good- Knee Strength Knee Manual Muscle Testing Right Flexion (S2) 5 Normal Extension (L3) 5 Normal Left Flexion (S2) 4 Good Extension (L3) 4 Good Comments pain ext Ankle/Foot Strength Ankle and Foot Manual Muscle Testing Right Dorsiflexion (L4) 5 Normal Plantarflexion (S1) 5 Normal Comments 20 heel raises B Left Dorsiflexion (L4) 5 Normal Plantarflexion (S1) 5 Normal Comments cues required for heel raises to keep knee straight-pain in knee-twinging PT-OP-Q Treatments Start: 07/26/22 17:51 Freq: Status: Active Protocol: Document 08/12/22 07:30 [facility] (Rec: 08/12/22 08:21 [facility] [id number]) Cardio Equipment Bicycle (Upright) Duration (Minutes) 5 Resistance 7 Seat Position 10 Other 78RPMs, Therapeutic Exercises Supine Exercises Quad set, SLR Supine Exercise Name quad set only Side left Equipment Used towel rolled behind Reps/Minutes 5 sec x10 bridges Supine Exercise Name reviewed HEP: improved core stab Resistance AROM Reps/Minutes 5 s hold x3 reps Standing Exercises stretch Standing Exercise Name 1.active HS stretch 2. quad Side left Reps/Minutes 1. 10 sec x5 2. 30 sec TKE Side left Resistance TB #3 loop Comments took out of HEP d/t pain Mini squat Standing Exercise Name review HEP Side left Equipment Used hands light Reps/Minutes 5 sec hold x10 Comments cued knee alignment with and behind toes Manual Therapy Treatment Soft Tissue Mobilization L ITB Body Location along ITB & VL Mobilization Type Rolling,Sustained Pressure Intensity/Depth Moderate Body Position Sidelying Joint Mobilizations hip Joint L Direction on axis ER FM tibfib Joint L Direction distraction & AP FM Tibfem Joint L AP On femur FM Patella mobs Joint L Direction med/ inf/superior glides Grade III Body Position Supine PT-OP-T Assessment and Plan Start: 07/26/22 17:51 Freq: Status: Active Protocol: Document 08/12/22 07:30 [facility] (Rec: 08/12/22 08:21 [facility] [id number]) Physical Therapy Assessment Goals balance Short Term Goal (STG) Pt will be able to do 30sec SLS on LLE w/o lat shear or signficiant instability to show ability to wt accept in LLE STG Duration 09/15 Residential Goal (LTG) Pt will report no difficulty w /knee on uneven surfaces. LTG Duration 10/19/22 activities Short Term Goal (STG) Pt will be able to stand from a chair w/o pain in L knee STG Duration 09/15 Hat Marker Goal (LTG) Pt will be able to walk at least 3 miles on uneven surfaces w/o inc knee pain or swelling. LTG Duration 10/19/22 strength Short Term Goal (STG) Pt will be indep w/HEP STG Duration 09/15 Residential Goal (LTG) pt will score at least 3/5 on LPM and 5/5 BLE strength w/o pain to show improved stability in order to inc pt ability to perform activity. LTG Duration 10/19/22 stairs Short Term Goal (STG) Pt will be able to ascend stairs without any pain in knee. STG Duration 09/15 Residential Goal (LTG) Pt will be able to descend stairs without any pain in knee. LTG Duration 10/19/22 Assessment Summary Assessment Pt able to do more full range w/squats. Cut out TKE and replaced w/quad set w/rolled towel. Adjusted HS stretch to more active for better release . Physical Therapy Plan Frequency and Duration Duration of treatment (weeks) 12 Plan of Care Start Date 07/27/22 Plan of Care End Date 10/19/22 Next Visit Focus/Plan Next Note Type Treatment Note Next Visit Plan work on quad engagemnt w/o pain, work on hip strengthening (sidestep etc), manual to ITB/VL line & along VMO to improve patellar tracking
--- NOTE | 2022-08-17 08:00 | PT-OP ANOTE ---
Pt cancelled today's appt and the next 4 >24hrs in advance due to jury duty.
--- NOTE | 2022-08-27 08:15 | PT.OTN ---
Current Diagnoses Pain in left knee (08/27/22) Muscle weakness (generalized) (08/27/22) Difficulty in walking, not elsewhere classified (08/27/22) Physical Therapy Treatment Note PT-OP-A Visit Information Start: 07/26/22 17:51 Freq: Status: Active Protocol: Document 08/27/22 07:17 [facility] (Rec: 08/27/22 10:02 [facility] [id number]) Out-Patient Physical Therapy Visit Information Visit Information Visit Type Treatment Note Visit Note CHANEL Elena lead treatment, supervised by IDALMIS Ho Visit Start Time 07:35 Visit Stop Time 08:15 Total Visit Minutes 40 Visit Number 02/28 Number of PHP LAMP DEVELOPER Visits 1 PT-OP-B Current Condition Start: 07/26/22 17:51 Freq: Status: Active Protocol: Document 07/27/22 10:47 [facility] (Rec: 07/27/22 12:25 [facility] [id number]) Current Condition History of Current Condition Onset Date 30 years Current Complaints L knee pain History of Current Condition Pt reports knee pain is an old issue that is ongoing that has just gotten worse. It started 30 years ago from twisting it in snow shoes in [place] and banged it. About 1 year ago, was bending down to do soething and he had a sudden sharp pain in L knee and it swelled up and stiffened up. SInce then, it sometimes feels like he is hyperextending it when he is going down hill or steps down and hurts. Pain is under knee cap but stiffness is more lat. No Xrays or MRIs. If he straigthens it and engages quads, it hurts.Pt reports also back issues. 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 Typically he walks for exercise 2x/day. HIs knee limits him. Typically, he would do a total of a couple miles a day w/his [place]. He would like to be able to walk 3+ miles at a time. It gets to a point at about 2 miles then he starts to get pain and if he over does it - it starts swelling. Sometimes when going down curb , he get a little popping then it stiffens and swells. Last week he went hunting and that was difficult d/t having to walk on a lot of rocks and he says i paid for it. Pt wears custom orthotics d/t hammer toes and plantar fascitis B Prior Treatments and Tests none Treatment Goals Patient/Caregiver Goals Be able to walk longer distances, be able to walk w/o worry of hurting it, be able to do stairs and hills, be able to squat and get up/dwon from chair w/o pain. PT-OP-C Subjective Start: 07/26/22 17:51 Freq: Status: Active Protocol: Document 08/27/22 07:17 TS (Rec: 08/27/22 10:02 TS [id number]) OP-PT Subjective Patient Comments Patient Comments Pt reports his L knee has been doing well and has been compliant with his HEP. PT-OP-D Balance Start: 07/26/22 17:51 Freq: Status: Active Protocol: Document 07/27/22 10:47 [facility] (Rec: 07/27/22 12:25 [facility] [id number]) Balance Tests Single Limb Standing Single Limb- Right >30 sec Single Limb- Left >30 sec but more UE use and more wobbly-lat shear PT-OP-F Manual Assessment Start: 07/26/22 17:51 Freq: Status: Active Protocol: Document 07/27/22 10:47 [facility] (Rec: 07/27/22 12:25 [facility] [id number]) Manual Assessments Soft Tissue Assessment Soft Tissue Mobility Assessment med joint line tenderness, tightness of ITB, VL, VMO, HS, Calf Joint Mobility Assessment Joint Mobility Assessment IR of femur L; R ER; B ER of tibia, ER of R foot>L; more lat patella L PT-OP-G Mobility & Gait Start: 07/26/22 17:51 Freq: Status: Active Protocol: Document 07/27/22 10:47 [facility] (Rec: 07/27/22 12:25 [facility] [id number]) OP Gait Assessment Comments Gait Comments dec push off L>R , dec stance time L PT-OP-J Posture/Palpation/Skin Start: 07/26/22 17:51 Freq: Status: Active Protocol: Document 07/27/22 10:47 [facility] (Rec: 07/27/22 12:25 [facility] [id number]) Posture Evaluation [facility] Postural Classification System Lumbar Protective Mechanism Left AP 0 Lumbar Protective Mechanism Right AP 1 Lumbar Protective Mechanism Left PA 1 Lumbar Protective Mechanism Right PA 1 PT-OP-K Range of Motion Start: 07/26/22 17:51 Freq: Status: Active Protocol: Document 07/27/22 10:47 [facility] (Rec: 07/27/22 12:25 [facility] [id number]) Knee Goniometric Range of Motion Knee Right Flexion Active (degrees) 130 Extension Active (degrees) 4 Comments ankle ROM B: knee to walk 4.25 in B Left Flexion Active (degrees) 125 Extension Active (degrees) 8 Comments pain under patella PT-OP-L Special Tests Start: 07/26/22 17:51 Freq: Status: Active Protocol: Document 07/27/22 10:47 [facility] (Rec: 07/27/22 12:25 [facility] [id number]) Special Tests Knee Special Tests Teodoro's Test Test Results positive B tightness Meyer's Compression Test Results neg L Apley's Compression Test Results neg L Thessaly Test 5 Degrees Test Results neg L Fredrick Test Test Results neg L Tripp Chondromalacia Test Results positive L Fito's Test Results neg L Straight Leg Raise Test Results 45 deg B Gian Test Results positive B for TFL and hip flexor and RF tightness Valgus- 25 Degrees Comments mild pain and laxity L Varus- 25 Degrees Test Results neg L Posterior Draw Test Results neg L PT-OP-M Strength Start: 07/26/22 17:51 Freq: Status: Active Protocol: Document 07/27/22 10:47 [facility] (Rec: 07/27/22 12:25 [facility] [id number]) Hip Strength Hip Manual Muscle Testing Right Flexion (L2) 5 Normal Extension (S1) 4 Good Abduction 5 Normal Adduction 4+ Good+ External Rotation 5 Normal Internal Rotation 5 Normal Left Flexion (L2) 3+ Fair+ Extension (S1) 4- Good- Abduction 4 Good Adduction 3+ Fair+ External Rotation 4+ Good+ Internal Rotation 4- Good- Knee Strength Knee Manual Muscle Testing Right Flexion (S2) 5 Normal Extension (L3) 5 Normal Left Flexion (S2) 4 Good Extension (L3) 4 Good Comments pain ext Ankle/Foot Strength Ankle and Foot Manual Muscle Testing Right Dorsiflexion (L4) 5 Normal Plantarflexion (S1) 5 Normal Comments 20 heel raises B Left Dorsiflexion (L4) 5 Normal Plantarflexion (S1) 5 Normal Comments cues required for heel raises to keep knee straight-pain in knee-twinging PT-OP-Q Treatments Start: 07/26/22 17:51 Freq: Status: Active Protocol: Document 08/27/22 07:17 [facility] (Rec: 08/27/22 10:02 TS [id number]) Therapeutic Exercises Standing Exercises Side Stepping Equipment Used LVL 2 Reps/Minutes 1x10 lvl 2, 1x10 no res Comments Pain with and without res, L ITB pain/unstable discontinue for moment,. 4 way hip Standing Exercise Name Added to HEP Side bilateral Equipment Used LVL 1 Reps/Minutes 2x10 Comments Some LOB with adduction, requires chair support Mini squat Side left Equipment Used hands light Reps/Minutes 5 sec hold x10 Comments Good carryover of form, has been doing at home Manual Therapy Treatment Soft Tissue Mobilization L ITB Body Location along ITB & VL Mobilization Type Rolling Intensity/Depth Moderate Body Position Sidelying Comments manual, more sensitive on L side than R Joint Mobilizations tibfib Joint L Direction distraction & AP FM Comments Manual, knee flexed Tibfem Joint L AP On femur FM Comments Manual, supine towel behind knee Patella mobs Joint L Direction med/ inf/superior glides Grade III Body Position Supine Comments Manual, instructed to perform at home PT-OP-T Assessment and Plan Start: 07/26/22 17:51 Freq: Status: Active Protocol: Document 08/27/22 07:17 [facility] (Rec: 08/27/22 10:02 TS [id number]) Physical Therapy Assessment Goals balance Short Term Goal (STG) Pt will be able to do 30sec SLS on LLE w/o lat shear or signficiant instability to show ability to wt accept in LLE STG Duration 09/15 Halfway Goal (LTG) Pt will report no difficulty w /knee on uneven surfaces. LTG Duration 10/19/22 activities Short Term Goal (STG) Pt will be able to stand from a chair w/o pain in L knee STG Duration 09/15 Halfway Goal (LTG) Pt will be able to walk at least 3 miles on uneven surfaces w/o inc knee pain or swelling. LTG Duration 10/19/22 strength Short Term Goal (STG) Pt will be indep w/HEP STG Duration 09/15 Halfway Goal (LTG) pt will score at least 3/5 on LPM and 5/5 BLE strength w/o pain to show improved stability in order to inc pt ability to perform activity. LTG Duration 10/19/22 stairs Short Term Goal (STG) Pt will be able to ascend stairs without any pain in knee. STG Duration 09/15 Auto Porter Goal (LTG) Pt will be able to descend stairs without any pain in knee. LTG Duration 10/19/22 Assessment Summary Assessment Pt continues to have sensitivity to L ITB vs R side . Pt had pain in L knee with sidestepping when leading with LLE. Pt responded well to 4 way hip ex without any pain, required cues for posture and core activation. Pt will continue to benefit from intervention to improve wbering on L knee and strength . Physical Therapy Plan Frequency and Duration Duration of treatment (weeks) 12 Plan of Care Start Date 07/27/22 Plan of Care End Date 10/19/22 Therapeutic Interventions Therapeutic Interventions Aquatic Therapy,Balance Training,Gait Training,Home Exercise Program,Joint Mobilizations,Manual Therapy, Neuromuscular Re-education, Orthotic/Prosthetic Management ,Patient/Caregiver Education, Self-Care/Home Management,Soft Tissue Mobilization,Taping, Therapeutic Activities, Therapeutic Exercises Modalities Cold Pack/Ice Massage,Electric Stimulation,Hot Packs, Infrared Therapy,Ultrasound Next Visit Focus/Plan Next Visit Plan Focus on single LLE ex. SLS, toe taps, SL deadlift, step ups on bosu.
--- NOTE | 2022-09-01 10:28 | PT.OTN ---
Addendum entered and electronically signed by Georgia Lopez PTA 09/01/22 16:58: SPTA meant to state in assessment/ plan step downs, not toe taps. Original Note: Current Diagnoses Pain in left knee (09/01/22) Muscle weakness (generalized) (09/01/22) Difficulty in walking, not elsewhere classified (09/01/22) Physical Therapy Treatment Note PT-OP-A Visit Information Start: 07/26/22 17:51 Freq: Status: Active Protocol: Document 09/01/22 09:36 TS (Rec: 09/01/22 12:00 TS [id number]) Out-Patient Physical Therapy Visit Information Visit Information Visit Type Treatment Note Visit Note SPTA [place]es lead treatment, supervised by IDALMIS Ho Visit Start Time 09:50 Visit Stop Time 10:28 Total Visit Minutes 38 Visit Number 03/31 Number of PURCHASING OFFICER Visits 2 PT-OP-B Current Condition Start: 07/26/22 17:51 Freq: Status: Active Protocol: Document 07/27/22 10:47 [facility] (Rec: 07/27/22 12:25 [facility] [id number]) Current Condition History of Current Condition Onset Date 30 years Current Complaints L knee pain History of Current Condition Pt reports knee pain is an old issue that is ongoing that has just gotten worse. It started 30 years ago from twisting it in snow shoes in [place] and banged it. About 1 year ago, was bending down to do soething and he had a sudden sharp pain in L knee and it swelled up and stiffened up. SInce then, it sometimes feels like he is hyperextending it when he is going down hill or steps down and hurts. Pain is under knee cap but stiffness is more lat. No Xrays or MRIs. If he straigthens it and engages quads, it hurts.Pt reports also back issues. 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 Typically he walks for exercise 2x/day. HIs knee limits him. Typically, he would do a total of a couple miles a day w/his [place]. He would like to be able to walk 3+ miles at a time. It gets to a point at about 2 miles then he starts to get pain and if he over does it - it starts swelling. Sometimes when going down curb , he get a little popping then it stiffens and swells. Last week he went hunting and that was difficult d/t having to walk on a lot of rocks and he says i paid for it. Pt wears custom orthotics d/t hammer toes and plantar fascitis B Prior Treatments and Tests none Treatment Goals Patient/Caregiver Goals Be able to walk longer distances, be able to walk w/o worry of hurting it, be able to do stairs and hills, be able to squat and get up/dwon from chair w/o pain. PT-OP-C Subjective Start: 07/26/22 17:51 Freq: Status: Active Protocol: Document 09/01/22 09:36 TS (Rec: 09/01/22 12:00 TS [id number]) OP-PT Subjective Patient Comments Patient Comments Pt reports he feels stiff on stance leg with 4 way hip ex. Reports the self-stm with rolling pin is helping with the stifness in knee. PT-OP-D Balance Start: 07/26/22 17:51 Freq: Status: Active Protocol: Document 07/27/22 10:47 [facility] (Rec: 07/27/22 12:25 [facility] [id number]) Balance Tests Single Limb Standing Single Limb- Right >30 sec Single Limb- Left >30 sec but more UE use and more wobbly-lat shear PT-OP-F Manual Assessment Start: 07/26/22 17:51 Freq: Status: Active Protocol: Document 07/27/22 10:47 [facility] (Rec: 07/27/22 12:25 [facility] [id number]) Manual Assessments Soft Tissue Assessment Soft Tissue Mobility Assessment med joint line tenderness, tightness of ITB, VL, VMO, HS, Calf Joint Mobility Assessment Joint Mobility Assessment IR of femur L; R ER; B ER of tibia, ER of R foot>L; more lat patella L PT-OP-G Mobility & Gait Start: 07/26/22 17:51 Freq: Status: Active Protocol: Document 07/27/22 10:47 [facility] (Rec: 07/27/22 12:25 [facility] [id number]) OP Gait Assessment Comments Gait Comments dec push off L>R , dec stance time L PT-OP-J Posture/Palpation/Skin Start: 10/10/22 17:51 Freq: Status: Active Protocol: Document 07/27/22 10:47 [facility] (Rec: 07/27/22 12:25 [facility] [id number]) Posture Evaluation [facility] Postural Classification System Lumbar Protective Mechanism Left AP 0 Lumbar Protective Mechanism Right AP 1 Lumbar Protective Mechanism Left PA 1 Lumbar Protective Mechanism Right PA 1 PT-OP-K Range of Motion Start: 07/26/22 17:51 Freq: Status: Active Protocol: Document 07/27/22 10:47 [facility] (Rec: 07/27/22 12:25 [facility] [id number]) Knee Goniometric Range of Motion Knee Right Flexion Active (degrees) 130 Extension Active (degrees) 4 Comments ankle ROM B: knee to walk 4.25 in B Left Flexion Active (degrees) 125 Extension Active (degrees) 8 Comments pain under patella PT-OP-L Special Tests Start: 07/26/22 17:51 Freq: Status: Active Protocol: Document 07/27/22 10:47 [facility] (Rec: 07/27/22 12:25 [facility] [id number]) Special Tests Knee Special Tests Teodoro's Test Test Results positive B tightness Meyer's Compression Test Results neg L Apley's Compression Test Results neg L Thessaly Test 5 Degrees Test Results neg L Fredrick Test Test Results neg L Tripp Chondromalacia Test Results positive L Fito's Test Results neg L Straight Leg Raise Test Results 45 deg B Gian Test Results positive B for TFL and hip flexor and RF tightness Valgus- 25 Degrees Comments mild pain and laxity L Varus- 25 Degrees Test Results neg L Posterior Draw Test Results neg L PT-OP-M Strength Start: 07/26/22 17:51 Freq: Status: Active Protocol: Document 07/27/22 10:47 [facility] (Rec: 07/27/22 12:25 [facility] [id number]) Hip Strength Hip Manual Muscle Testing Right Flexion (L2) 5 Normal Extension (S1) 4 Good Abduction 5 Normal Adduction 4+ Good+ External Rotation 5 Normal Internal Rotation 5 Normal Left Flexion (L2) 3+ Fair+ Extension (S1) 4- Good- Abduction 4 Good Adduction 3+ Fair+ External Rotation 4+ Good+ Internal Rotation 4- Good- Knee Strength Knee Manual Muscle Testing Right Flexion (S2) 5 Normal Extension (L3) 5 Normal Left Flexion (S2) 4 Good Extension (L3) 4 Good Comments pain ext Ankle/Foot Strength Ankle and Foot Manual Muscle Testing Right Dorsiflexion (L4) 5 Normal Plantarflexion (S1) 5 Normal Comments 20 heel raises B Left Dorsiflexion (L4) 5 Normal Plantarflexion (S1) 5 Normal Comments cues required for heel raises to keep knee straight-pain in knee-twinging PT-OP-Q Treatments Start: 07/26/22 17:51 Freq: Status: Active Protocol: Document 09/01/22 09:36 TS (Rec: 09/01/22 12:00 TS [id number]) Cardio Equipment Bicycle (Upright) Duration (Minutes) 5 Resistance 7 Seat Position 9 Other 78RPMs, Distance Therapeutic Exercises Sitting Exercises HS Stretch Side bilateral Equipment Used Chair Reps/Minutes 1x30 Comments Cues for hip hinge Standing Exercises Step downs Side bilateral Equipment Used 6 step Reps/Minutes 2x10 Comments Cues for knee alignment Mini Lunge Bosu Side bilateral Reps/Minutes 1x10 Comments Cues for knee lignment behind toes Single Leg Deadlift Standing Exercise Name Added to HEP Equipment Used Chair for support Reps/Minutes 2x10 Comments Cues for hip alignment and knee alignment with foot. SLS Side bilateral Equipment Used // bars Reps/Minutes 30 secs on R&L Comments Left fatigues quickly 4 way hip Standing Exercise Name Reviewed for HEP Side bilateral Equipment Used LVL 1 Reps/Minutes 1x10 Comments Minor LOB during stance on R leg Neuro Re-Education Treatment Balance Activities Tandem Walk Details HT's, Backwards Equipment // Reps/Duration 3x10, 1x10 Backwards Comments Cues for hip and core activation PT-OP-T Assessment and Plan Start: 07/26/22 17:51 Freq: Status: Active Protocol: Document 09/01/22 09:36 TS (Rec: 09/01/22 12:00 TS [id number]) Physical Therapy Assessment Goals balance Short Term Goal (STG) Pt will be able to do 30sec SLS on LLE w/o lat shear or signficiant instability to show ability to wt accept in LLE STG Duration 09/15 Residential Goal (LTG) Pt will report no difficulty w /knee on uneven surfaces. LTG Duration 10/19/22 activities Short Term Goal (STG) Pt will be able to stand from a chair w/o pain in L knee STG Duration 09/15 Ship Washer Goal (LTG) Pt will be able to walk at least 3 miles on uneven surfaces w/o inc knee pain or swelling. LTG Duration 10/19/22 strength Short Term Goal (STG) Pt will be indep w/HEP STG Duration 09/15 Ship Washer Goal (LTG) pt will score at least 3/5 on LPM and 5/5 BLE strength w/o pain to show improved stability in order to inc pt ability to perform activity. LTG Duration 10/19/22 stairs Short Term Goal (STG) Pt will be able to ascend stairs without any pain in knee. STG Duration 09/15 Ship Washer Goal (LTG) Pt will be able to descend stairs without any pain in knee. LTG Duration 10/19/22 Assessment Summary Assessment Pt progressed single leg activities this treatment. Requires some cueing for knee slignment during toe taps and lunges on bosu. Pt performed SLS 30 secs on each LE, left fatiguing quickly. Pt would benefit from continued intervention for improved strength, activity tolerance and balance in LEs. Physical Therapy Plan Frequency and Duration Duration of treatment (weeks) 12 Plan of Care Start Date 07/27/22 Plan of Care End Date 10/19/22 Therapeutic Interventions Therapeutic Interventions Aquatic Therapy,Balance Training,Gait Training,Home Exercise Program,Joint Mobilizations,Manual Therapy, Neuromuscular Re-education, Orthotic/Prosthetic Management ,Patient/Caregiver Education, Self-Care/Home Management,Soft Tissue Mobilization,Taping, Therapeutic Activities, Therapeutic Exercises Modalities Cold Pack/Ice Massage,Electric Stimulation,Hot Packs, Infrared Therapy,Ultrasound Next Visit Focus/Plan Next Visit Plan Continue single LLE ex. Assess SLS, toe taps, SL deadlift, lunges on bosu. Progress balance ex.
--- NOTE | 2022-09-23 08:21 | PT.OTN ---
Current Diagnoses Pain in left knee (09/23/22) Muscle weakness (generalized) (09/23/22) Difficulty in walking, not elsewhere classified (09/23/22) Physical Therapy Treatment Note PT-OP-A Visit Information Start: 07/26/22 17:51 Freq: Status: Active Protocol: Document 09/23/22 07:29 [facility] (Rec: 09/23/22 08:20 [facility] [id number]) Out-Patient Physical Therapy Visit Information Visit Information Visit Type Progress Note Visit Start Time 07:32 Visit Stop Time 08:14 Total Visit Minutes 42 Visit Number 7/15 Number of [employer] Visits 0 PT-OP-B Current Condition Start: 07/26/22 17:51 Freq: Status: Active Protocol: Document 07/27/22 10:47 [facility] (Rec: 07/27/22 12:25 [facility] [id number]) Current Condition History of Current Condition Onset Date 30 years Current Complaints L knee pain History of Current Condition Pt reports knee pain is an old issue that is ongoing that has just gotten worse. It started 30 years ago from twisting it in snow shoes in [place] and banged it. About 1 year ago, was bending down to do soething and he had a sudden sharp pain in L knee and it swelled up and stiffened up. SInce then, it sometimes feels like he is hyperextending it when he is going down hill or steps down and hurts. Pain is under knee cap but stiffness is more lat. No Xrays or MRIs. If he straigthens it and engages quads, it hurts.Pt reports also back issues. 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 Typically he walks for exercise 2x/day. HIs knee limits him. Typically, he would do a total of a couple miles a day w/his [place]. He would like to be able to walk 3+ miles at a time. It gets to a point at about 2 miles then he starts to get pain and if he over does it - it starts swelling. Sometimes when going down curb , he get a little popping then it stiffens and swells. Last week he went hunting and that was difficult d/t having to walk on a lot of rocks and he says i paid for it. Pt wears custom orthotics d/t hammer toes and plantar fascitis B Prior Treatments and Tests none Treatment Goals Patient/Caregiver Goals Be able to walk longer distances, be able to walk w/o worry of hurting it, be able to do stairs and hills, be able to squat and get up/dwon from chair w/o pain. PT-OP-C Subjective Start: 07/26/22 17:51 Freq: Status: Active Protocol: Document 09/23/22 07:29 [facility] (Rec: 09/23/22 08:20 [facility] [id number]) OP-PT Subjective Patient Comments Patient Comments Pt reports knee has steadily been better. He recently was moving furniture (about a week ago) and has had L back pain and L hip pain since then which has limited his ability to do his exercise. Patient Reported Progress Improving PT-OP-D Balance Start: 07/26/22 17:51 Freq: Status: Active Protocol: Document 07/27/22 10:47 [facility] (Rec: 07/27/22 12:25 [facility] [id number]) Balance Tests Single Limb Standing Single Limb- Right >30 sec Single Limb- Left >30 sec but more UE use and more wobbly-lat shear PT-OP-F Manual Assessment Start: 07/26/22 17:51 Freq: Status: Active Protocol: Document 07/27/22 10:47 [facility] (Rec: 07/27/22 12:25 [facility] [id number]) Manual Assessments Soft Tissue Assessment Soft Tissue Mobility Assessment med joint line tenderness, tightness of ITB, VL, VMO, HS, Calf Joint Mobility Assessment Joint Mobility Assessment IR of femur L; R ER; B ER of tibia, ER of R foot>L; more lat patella L PT-OP-G Mobility & Gait Start: 07/26/22 17:51 Freq: Status: Active Protocol: Document 07/27/22 10:47 [facility] (Rec: 07/27/22 12:25 [facility] [id number]) OP Gait Assessment Comments Gait Comments dec push off L>R , dec stance time L PT-OP-J Posture/Palpation/Skin Start: 07/26/22 17:51 Freq: Status: Active Protocol: Document 07/27/22 10:47 [facility] (Rec: 07/27/22 12:25 [facility] [id number]) Posture Evaluation [facility] Postural Classification System Lumbar Protective Mechanism Left AP 0 Lumbar Protective Mechanism Right AP 1 Lumbar Protective Mechanism Left PA 1 Lumbar Protective Mechanism Right PA 1 PT-OP-K Range of Motion Start: 07/26/22 17:51 Freq: Status: Active Protocol: Document 07/27/22 10:47 [facility] (Rec: 07/27/22 12:25 [facility] [id number]) Knee Goniometric Range of Motion Knee Right Flexion Active (degrees) 130 Extension Active (degrees) 4 Comments ankle ROM B: knee to walk 4.25 in B Left Flexion Active (degrees) 125 Extension Active (degrees) 8 Comments pain under patella PT-OP-L Special Tests Start: 07/26/22 17:51 Freq: Status: Active Protocol: Document 07/27/22 10:47 [facility] (Rec: 07/27/22 12:25 [facility] [id number]) Special Tests Knee Special Tests Teodoro's Test Test Results positive B tightness Meyer's Compression Test Results neg L Apley's Compression Test Results neg L Thessaly Test 5 Degrees Test Results neg L Fredrick Test Test Results neg L Tripp Chondromalacia Test Results positive L Fito's Test Results neg L Straight Leg Raise Test Results 45 deg B Gian Test Results positive B for TFL and hip flexor and RF tightness Valgus- 25 Degrees Comments mild pain and laxity L Varus- 25 Degrees Test Results neg L Posterior Draw Test Results neg L PT-OP-M Strength Start: 07/26/22 17:51 Freq: Status: Active Protocol: Document 07/27/22 10:47 [facility] (Rec: 07/27/22 12:25 [facility] [id number]) Hip Strength Hip Manual Muscle Testing Right Flexion (L2) 5 Normal Extension (S1) 4 Good Abduction 5 Normal Adduction 4+ Good+ External Rotation 5 Normal Internal Rotation 5 Normal Left Flexion (L2) 3+ Fair+ Extension (S1) 4- Good- Abduction 4 Good Adduction 3+ Fair+ External Rotation 4+ Good+ Internal Rotation 4- Good- Knee Strength Knee Manual Muscle Testing Right Flexion (S2) 5 Normal Extension (L3) 5 Normal Left Flexion (S2) 4 Good Extension (L3) 4 Good Comments pain ext Ankle/Foot Strength Ankle and Foot Manual Muscle Testing Right Dorsiflexion (L4) 5 Normal Plantarflexion (S1) 5 Normal Comments 20 heel raises B Left Dorsiflexion (L4) 5 Normal Plantarflexion (S1) 5 Normal Comments cues required for heel raises to keep knee straight-pain in knee-twinging PT-OP-Q Treatments Start: 07/26/22 17:51 Freq: Status: Active Protocol: Document 09/23/22 07:29 [facility] (Rec: 09/23/22 08:20 [facility] [id number]) Cardio Equipment Bicycle (Upright) Duration (Minutes) 5 Resistance 7 Seat Position 11 Therapeutic Exercises Supine Exercises stretches Supine Exercise Name 1. figure 4 2. SKTC Side left Reps/Minutes 30 sec ea Comments piriformis attempted but painful core Supine Exercise Name DL iso flex Side bilateral Reps/Minutes 30 sec HS, ITB stretch Supine Exercise Name HS Side left Reps/Minutes 30 sec Manual Therapy Treatment Soft Tissue Mobilization L glute Body Location glute/piriformis Mobilization Type Sustained Pressure Body Position Sidelying Comments w/hip IR/er L ITB Body Location along ITB & TFL Mobilization Type Rolling Intensity/Depth Moderate Body Position Hooklying Comments w/hip IR/er Joint Mobilizations hip Joint L hookyling on axis FM IR & inf Comments manual facilition w/chop pattern after in hooklying PT-OP-T Assessment and Plan Start: 07/26/22 17:51 Freq: Status: Active Protocol: Document 09/23/22 07:29 [facility] (Rec: 09/23/22 08:20 [facility] [id number]) Physical Therapy Assessment Goals balance Short Term Goal (STG) Pt will be able to do 30sec SLS on LLE w/o lat shear or signficiant instability to show ability to wt accept in LLE STG Duration 09/15 Sociology Research Assistant Goal (LTG) Pt will report no difficulty w /knee on uneven surfaces. LTG Duration 10/19/22 activities Short Term Goal (STG) Pt will be able to stand from a chair w/o pain in L knee STG Duration achieved 09/23 Sociology Research Assistant Goal (LTG) Pt will be able to walk at least 3 miles on uneven surfaces w/o inc knee pain or swelling. LTG Duration 10/19/22 strength Short Term Goal (STG) Pt will be indep w/HEP 12/-limited d/t recent onset of hip and back pain STG Duration 09/15 Sociology Research Assistant Goal (LTG) pt will score at least 3/5 on LPM and 5/5 BLE strength w/o pain to show improved stability in order to inc pt ability to perform activity. LTG Duration 10/19/22 stairs Short Term Goal (STG) Pt will be able to ascend stairs without any pain in knee. STG Duration achieved 12/8 Prison Goal (LTG) Pt will be able to descend stairs without any pain in knee. LTG Duration 10/19/22 Assessment Summary Assessment Pt able to lift LLE again after manual treatment in supine, standing and seated w/ less pain. Pt did well with exercises givent o help maintain these changes. Physical Therapy Plan Frequency and Duration Duration of treatment (weeks) 12 Plan of Care Start Date 07/27/22 Plan of Care End Date 10/19/22 Therapeutic Interventions Therapeutic Interventions Aquatic Therapy,Balance Training,Gait Training,Home Exercise Program,Joint Mobilizations,Manual Therapy, Neuromuscular Re-education, Orthotic/Prosthetic Management ,Patient/Caregiver Education, Self-Care/Home Management,Soft Tissue Mobilization,Taping, Therapeutic Activities, Therapeutic Exercises Modalities Cold Pack/Ice Massage,Electric Stimulation,Hot Packs, Infrared Therapy,Ultrasound Next Visit Focus/Plan Next Note Type Treatment Note Next Visit Plan Focus on single LLE ex. SLS, toe taps, SL deadlift, step ups on bosu.
--- NOTE | 2022-09-30 08:18 | PT.OTN ---
Current Diagnoses Pain in left knee (09/30/22) Muscle weakness (generalized) (09/30/22) Difficulty in walking, not elsewhere classified (09/30/22) Physical Therapy Treatment Note PT-OP-A Visit Information Start: 07/26/22 17:51 Freq: Status: Active Protocol: Document 09/30/22 07:30 [facility] (Rec: 09/30/22 08:18 [facility] [id number]) Out-Patient Physical Therapy Visit Information Visit Information Visit Type Progress Note Visit Start Time 07:31 Visit Stop Time 08:12 Total Visit Minutes 41 Visit Number 05/31 Number of DEER FARM WORKER Visits 0 PT-OP-B Current Condition Start: 07/26/22 17:51 Freq: Status: Active Protocol: Document 07/27/22 10:47 [facility] (Rec: 07/27/22 12:25 [facility] [id number]) Current Condition History of Current Condition Onset Date 30 years Current Complaints L knee pain History of Current Condition Pt reports knee pain is an old issue that is ongoing that has just gotten worse. It started 30 years ago from twisting it in snow shoes in [place] and banged it. About 1 year ago, was bending down to do soething and he had a sudden sharp pain in L knee and it swelled up and stiffened up. SInce then, it sometimes feels like he is hyperextending it when he is going down hill or steps down and hurts. Pain is under knee cap but stiffness is more lat. No Xrays or MRIs. If he straigthens it and engages quads, it hurts.Pt reports also back issues. 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 Typically he walks for exercise 2x/day. HIs knee limits him. Typically, he would do a total of a couple miles a day w/his [place]. He would like to be able to walk 3+ miles at a time. It gets to a point at about 2 miles then he starts to get pain and if he over does it - it starts swelling. Sometimes when going down curb , he get a little popping then it stiffens and swells. Last week he went hunting and that was difficult d/t having to walk on a lot of rocks and he says i paid for it. Pt wears custom orthotics d/t hammer toes and plantar fascitis B Prior Treatments and Tests none Treatment Goals Patient/Caregiver Goals Be able to walk longer distances, be able to walk w/o worry of hurting it, be able to do stairs and hills, be able to squat and get up/dwon from chair w/o pain. PT-OP-C Subjective Start: 07/26/22 17:51 Freq: Status: Active Protocol: Document 09/30/22 07:30 [facility] (Rec: 09/30/22 08:18 [facility] [id number]) OP-PT Subjective Patient Comments Patient Comments Pt reports he has been doing walks 1-2 miles and he is fine after that. Hip is doing better. He has to limit SL time with exercises and squats or has inc pain. Patient Reported Progress Improving PT-OP-D Balance Start: 07/26/22 17:51 Freq: Status: Active Protocol: Document 09/30/22 07:30 [facility] (Rec: 09/30/22 08:18 [facility] [id number]) Balance Tests Single Limb Standing Single Limb- Right >30 sec Single Limb- Left >30 sec w/cues PT-OP-F Manual Assessment Start: 07/26/22 17:51 Freq: Status: Active Protocol: Document 07/27/22 10:47 [facility] (Rec: 07/27/22 12:25 [facility] [id number]) Manual Assessments Soft Tissue Assessment Soft Tissue Mobility Assessment med joint line tenderness, tightness of ITB, VL, VMO, HS, Calf Joint Mobility Assessment Joint Mobility Assessment IR of femur L; R ER; B ER of tibia, ER of R foot>L; more lat patella L PT-OP-G Mobility & Gait Start: 07/26/22 17:51 Freq: Status: Active Protocol: Document 07/27/22 10:47 [facility] (Rec: 07/27/22 12:25 [facility] [id number]) OP Gait Assessment Comments Gait Comments dec push off L>R , dec stance time L PT-OP-J Posture/Palpation/Skin Start: 07/26/22 17:51 Freq: Status: Active Protocol: Document 09/30/22 07:30 [facility] (Rec: 09/30/22 08:18 [facility] [id number]) Posture Evaluation Raymond Postural Classification System Lumbar Protective Mechanism Left AP 2 Lumbar Protective Mechanism Right AP 3 Lumbar Protective Mechanism Left PA 2 Lumbar Protective Mechanism Right PA 3 PT-OP-K Range of Motion Start: 07/26/22 17:51 Freq: Status: Active Protocol: Document 07/27/22 10:47 [facility] (Rec: 07/27/22 12:25 [facility] [id number]) Knee Goniometric Range of Motion Knee Right Flexion Active (degrees) 130 Extension Active (degrees) 4 Comments ankle ROM B: knee to walk 4.25 in B Left Flexion Active (degrees) 125 Extension Active (degrees) 8 Comments pain under patella PT-OP-L Special Tests Start: 07/26/22 17:51 Freq: Status: Active Protocol: Document 07/27/22 10:47 [facility] (Rec: 07/27/22 12:25 [facility] [id number]) Special Tests Knee Special Tests Teodoro's Test Test Results positive B tightness Meyer's Compression Test Results neg L Apley's Compression Test Results neg L Thessaly Test 5 Degrees Test Results neg L Fredrick Test Test Results neg L Tripp Chondromalacia Test Results positive L Fito's Test Results neg L Straight Leg Raise Test Results 45 deg B Gian Test Results positive B for TFL and hip flexor and RF tightness Valgus- 25 Degrees Comments mild pain and laxity L Varus- 25 Degrees Test Results neg L Posterior Draw Test Results neg L PT-OP-M Strength Start: 07/26/22 17:51 Freq: Status: Active Protocol: Document 09/30/22 07:30 [facility] (Rec: 09/30/22 08:18 [facility] [id number]) Hip Strength Hip Manual Muscle Testing Right Flexion (L2) 5 Normal Extension (S1) 4+ Good+ Abduction 5 Normal Adduction 5 Normal External Rotation 5 Normal Internal Rotation 5 Normal Left Flexion (L2) 5 Normal Extension (S1) 4+ Good+ Abduction 5 Normal Adduction 5 Normal External Rotation 5 Normal Internal Rotation 5 Normal Knee Strength Knee Manual Muscle Testing Right Flexion (S2) 5 Normal Extension (L3) 5 Normal Left Flexion (S2) 5 Normal Extension (L3) 5 Normal Ankle/Foot Strength Ankle and Foot Manual Muscle Testing Right Dorsiflexion (L4) 5 Normal Plantarflexion (S1) 5 Normal Comments 20 heel raises B Left Dorsiflexion (L4) 5 Normal Plantarflexion (S1) 5 Normal Comments cues required for heel raises to keep knee straight-pain in knee-twinging PT-OP-Q Treatments Start: 07/26/22 17:51 Freq: Status: Active Protocol: Document 09/30/22 07:30 [facility] (Rec: 09/30/22 08:18 [facility] [id number]) Cardio Equipment Bicycle (Upright) Duration (Minutes) 5 Resistance 10 Seat Position 11 Therapeutic Exercises Standing Exercises hip hike Side bilateral Reps/Minutes 10 Single Leg Deadlift Standing Exercise Name review Side left Reps/Minutes 2x5 Manual Therapy Treatment Soft Tissue Mobilization HS Body Location L Mobilization Type Rolling Intensity/Depth Moderate Body Position Supine L ITB Body Location along ITB Mobilization Type Rolling Intensity/Depth Moderate Joint Mobilizations Tibfem Joint AP femur L FM Neuro Re-Education Treatment Balance Activities bosu Comments 1. step up to both LEs x10 B 2. fwd lunge mini x10 B 3. squats black side x10 mini PT-OP-T Assessment and Plan Start: 07/26/22 17:51 Freq: Status: Active Protocol: Document 09/30/22 07:30 [facility] (Rec: 09/30/22 08:18 [facility] [id number]) Physical Therapy Assessment Goals balance Short Term Goal (STG) Pt will be able to do 30sec SLS on LLE w/o lat shear or signficiant instability to show ability to wt accept in LLE 09/30-requiers cues and mirror and notes some discomfort after STG Duration 10/31 Sales Operations Consultant Goal (LTG) Pt will report no difficulty w /knee on uneven surfaces. 09/30-hasn't tried LTG Duration 11/25 activities Short Term Goal (STG) Pt will be able to stand from a chair w/o pain in L knee STG Duration achieved 09/23 Detention Goal (LTG) Pt will be able to walk at least 3 miles on uneven surfaces w/o inc knee pain or swelling. 09/30-can do 1-2 miles consistantly LTG Duration 2 strength Short Term Goal (STG) Pt will be indep w/HEP 09/23-limited d/t recent onset of hip and back pain STG Duration achieved-advancing as able Sales Operations Consultant Goal (LTG) pt will score at least 3/5 on LPM and 5/5 BLE strength w/o pain to show improved stability in order to inc pt ability to perform activity. 09/30-mostly achieved LTG Duration 11/25 stairs Short Term Goal (STG) Pt will be able to ascend stairs without any pain in knee. STG Duration achieved 09/23 Detention Goal (LTG) Pt will be able to descend stairs without any pain in knee. 09/30-can most of the time but occ painful LTG Duration 11/25 Assessment Summary Assessment Pt had some knee soreness with the single leg DL and w/ lunges at end of reps. Limited knee ext before manual w/pain that improved to more comfortable and inc range after manual Physical Therapy Plan Frequency and Duration Frequency of Treatment 1-2x/wk Duration of treatment (weeks) 8 Plan of Care Start Date 09/30/22 Plan of Care End Date 11/25/22 Therapeutic Interventions Therapeutic Interventions Aquatic Therapy,Balance Training,Gait Training,Home Exercise Program,Joint Mobilizations,Manual Therapy, Neuromuscular Re-education, Orthotic/Prosthetic Management ,Patient/Caregiver Education, Self-Care/Home Management,Soft Tissue Mobilization,Taping, Therapeutic Activities, Therapeutic Exercises Modalities Cold Pack/Ice Massage,Electric Stimulation,Hot Packs, Infrared Therapy,Ultrasound Next Visit Focus/Plan Next Note Type Treatment Note Next Visit Plan Focus on single LLE ex. SLS, toe taps, SL deadlift, step ups on bosu & other uneven surface exercises
--- NOTE | 2022-09-30 09:06 | PT.OPPOC ---
Physical, Occupational & Speech Therapy At [facility] Current Diagnoses Pain in left knee (10/20/22) Muscle weakness (generalized) (10/20/22) Difficulty in walking, not elsewhere classified (10/20/22) Visit Care Team Role Provider Type Other Providers Specialty: Address: Phone: Fax: Email: Salvador Costello DO Family Provider Physician Primary Care Provider Specialty: Family Practice Address: [address] [place] [address], [address] Email: GOLD Saunders Attending Provider Non-Staff Referring Provider Specialty: Nursing [facility] [place], [address] Email: Plan Of Care PT-OP-T Assessment and Plan Start: 07/26/22 17:51 Freq: Status: Active Protocol: Document 10/20/22 09:06 [facility] (Rec: 09/30/22 08:18 [facility] [id number]) Physical Therapy Assessment Goals balance Short Term Goal (STG) Pt will be able to do 30sec SLS on LLE w/o lat shear or signficiant instability to show ability to wt accept in LLE 09/30-requiers cues and mirror and notes some discomfort after STG Duration 10/31 Supervisor Home Economics Goal (LTG) Pt will report no difficulty w /knee on uneven surfaces. 09/30-hasn't tried LTG Duration 2 activities Short Term Goal (STG) Pt will be able to stand from a chair w/o pain in L knee STG Duration achieved 09/23 Supervisor Home Economics Goal (LTG) Pt will be able to walk at least 3 miles on uneven surfaces w/o inc knee pain or swelling. 09/30-can do 1-2 miles consistantly LTG Duration 29 strength Short Term Goal (STG) Pt will be indep w/HEP 09/23-limited d/t recent onset of hip and back pain STG Duration achieved-advancing as able Jail Goal (LTG) pt will score at least 3/5 on LPM and 5/5 BLE strength w/o pain to show improved stability in order to inc pt ability to perform activity. 09/30-mostly achieved LTG Duration 2 stairs Short Term Goal (STG) Pt will be able to ascend stairs without any pain in knee. STG Duration achieved 09/23 Supervisor Home Economics Goal (LTG) Pt will be able to descend stairs without any pain in knee. 09/30-can most of the time but occ painful LTG Duration 11/25 Assessment Summary Assessment Pt had some knee soreness with the single leg DL and w/ lunges at end of reps. Limited knee ext before manual w/pain that improved to more comfortable and inc range after manual Physical Therapy Plan Frequency and Duration Frequency of Treatment 1-2x/wk Duration of treatment (weeks) 8 Plan of Care Start Date 09/30/22 Plan of Care End Date 11/25/22 Therapeutic Interventions Therapeutic Interventions Aquatic Therapy,Balance Training,Gait Training,Home Exercise Program,Joint Mobilizations,Manual Therapy, Neuromuscular Re-education, Orthotic/Prosthetic Management ,Patient/Caregiver Education, Self-Care/Home Management,Soft Tissue Mobilization,Taping, Therapeutic Activities, Therapeutic Exercises Modalities Cold Pack/Ice Massage,Electric Stimulation,Hot Packs, Infrared Therapy,Ultrasound Next Visit Focus/Plan Next Note Type Treatment Note Next Visit Plan Focus on single LLE ex. SLS, toe taps, SL deadlift, step ups on bosu & other uneven surface exercises Plan of Care Dates Plan of Care Start Date 09/30/22 Plan of Care End Date 11/25/22 Electronically Signed by: Kim Guzman, PT 10/20/22 0906 If you are in agreement with this Plan of Care, please return a signed and dated copy. I have reviewed this Plan of Care and certify that the skilled therapy services above are required to meet the patient?s needs. Physician Signature Date Printed Name and Credentials Clinical Instructor Signature Printed Name and Credentials
--- NOTE | 2022-09-30 09:07 | PT.OPPN ---
Current Diagnoses Pain in left knee (10/20/22) Muscle weakness (generalized) (10/20/22) Difficulty in walking, not elsewhere classified (10/20/22) Physical Therapy Progress Note PT-OP-A Visit Information Start: 07/26/22 17:51 Freq: Status: Active Protocol: Document 10/20/22 09:06 [facility] (Rec: 09/30/22 08:18 [facility] [id number]) Out-Patient Physical Therapy Visit Information Visit Information Visit Type Progress Note Visit Start Time 07:31 Visit Stop Time 08:12 Total Visit Minutes 41 Visit Number 05/31 Number of SINTER PRESS OPERATOR Visits 0 PT-OP-B Current Condition Start: 07/26/22 17:51 Freq: Status: Active Protocol: Document 07/27/22 10:47 [facility] (Rec: 07/27/22 12:25 [facility] [id number]) Current Condition History of Current Condition Onset Date 30 years Current Complaints L knee pain History of Current Condition Pt reports knee pain is an old issue that is ongoing that has just gotten worse. It started 30 years ago from twisting it in snow shoes in [place] and banged it. About 1 year ago, was bending down to do soething and he had a sudden sharp pain in L knee and it swelled up and stiffened up. SInce then, it sometimes feels like he is hyperextending it when he is going down hill or steps down and hurts. Pain is under knee cap but stiffness is more lat. No Xrays or MRIs. If he straigthens it and engages quads, it hurts.Pt reports also back issues. 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 Typically he walks for exercise 2x/day. HIs knee limits him. Typically, he would do a total of a couple miles a day w/his [place]. He would like to be able to walk 3+ miles at a time. It gets to a point at about 2 miles then he starts to get pain and if he over does it - it starts swelling. Sometimes when going down curb , he get a little popping then it stiffens and swells. Last week he went hunting and that was difficult d/t having to walk on a lot of rocks and he says i paid for it. Pt wears custom orthotics d/t hammer toes and plantar fascitis B Prior Treatments and Tests none Treatment Goals Patient/Caregiver Goals Be able to walk longer distances, be able to walk w/o worry of hurting it, be able to do stairs and hills, be able to squat and get up/dwon from chair w/o pain. PT-OP-C Subjective Start: 07/26/22 17:51 Freq: Status: Active Protocol: Document 10/20/22 09:06 [facility] (Rec: 09/30/22 08:18 [facility] [id number]) OP-PT Subjective Patient Comments Patient Comments Pt reports he has been doing walks 1-2 miles and he is fine after that. Hip is doing better. He has to limit SL time with exercises and squats or has inc pain. Patient Reported Progress Improving PT-OP-D Balance Start: 07/26/22 17:51 Freq: Status: Active Protocol: Document 10/20/22 09:06 [facility] (Rec: 09/30/22 08:18 [facility] [id number]) Balance Tests Single Limb Standing Single Limb- Right >30 sec Single Limb- Left >30 sec w/cues PT-OP-F Manual Assessment Start: 07/26/22 17:51 Freq: Status: Active Protocol: Document 07/27/22 10:47 [facility] (Rec: 07/27/22 12:25 [facility] [id number]) Manual Assessments Soft Tissue Assessment Soft Tissue Mobility Assessment med joint line tenderness, tightness of ITB, VL, VMO, HS, Calf Joint Mobility Assessment Joint Mobility Assessment IR of femur L; R ER; B ER of tibia, ER of R foot>L; more lat patella L PT-OP-G Mobility & Gait Start: 07/26/22 17:51 Freq: Status: Active Protocol: Document 07/27/22 10:47 [facility] (Rec: 07/27/22 12:25 [facility] [id number]) OP Gait Assessment Comments Gait Comments dec push off L>R , dec stance time L PT-OP-J Posture/Palpation/Skin Start: 07/26/22 17:51 Freq: Status: Active Protocol: Document 10/20/22 09:06 [facility] (Rec: 09/30/22 08:18 [facility] [id number]) Posture Evaluation Raymond Postural Classification System Lumbar Protective Mechanism Left AP 2 Lumbar Protective Mechanism Right AP 3 Lumbar Protective Mechanism Left PA 2 Lumbar Protective Mechanism Right PA 3 PT-OP-K Range of Motion Start: 07/26/22 17:51 Freq: Status: Active Protocol: Document 07/27/22 10:47 [facility] (Rec: 07/27/22 12:25 [facility] [id number]) Knee Goniometric Range of Motion Knee Measured in Degrees Right Flexion Active (degrees) 130 Extension Active (degrees) 4 Comments ankle ROM B: knee to walk 4.25 in B Left Flexion Active (degrees) 125 Extension Active (degrees) 8 Comments pain under patella PT-OP-L Special Tests Start: 07/26/22 17:51 Freq: Status: Active Protocol: Document 07/27/22 10:47 [facility] (Rec: 07/27/22 12:25 [facility] [id number]) Special Tests Knee Special Tests Teodoro's Test Test Results positive B tightness Meyer's Compression Test Results neg L Apley's Compression Test Results neg L Thessaly Test 5 Degrees Test Results neg L Fredrick Test Test Results neg L Tripp Chondromalacia Test Results positive L Fito's Test Results neg L Straight Leg Raise Test Results 45 deg B Gian Test Results positive B for TFL and hip flexor and RF tightness Valgus- 25 Degrees Comments mild pain and laxity L Varus- 25 Degrees Test Results neg L Posterior Draw Test Results neg L PT-OP-M Strength Start: 07/26/22 17:51 Freq: Status: Active Protocol: Document 10/20/22 09:06 [facility] (Rec: 09/30/22 08:18 [facility] [id number]) Hip Strength Hip Manual Muscle Testing Right Flexion (L2) 5 Normal Extension (S1) 4+ Good+ Abduction 5 Normal Adduction 5 Normal External Rotation 5 Normal Internal Rotation 5 Normal Left Flexion (L2) 5 Normal Extension (S1) 4+ Good+ Abduction 5 Normal Adduction 5 Normal External Rotation 5 Normal Internal Rotation 5 Normal Knee Strength Knee Manual Muscle Testing Right Flexion (S2) 5 Normal Extension (L3) 5 Normal Left Flexion (S2) 5 Normal Extension (L3) 5 Normal Ankle/Foot Strength Ankle and Foot Manual Muscle Testing Right Dorsiflexion (L4) 5 Normal Plantarflexion (S1) 5 Normal Comments 20 heel raises B Left Dorsiflexion (L4) 5 Normal Plantarflexion (S1) 5 Normal Comments cues required for heel raises to keep knee straight-pain in knee-twinging PT-OP-T Assessment and Plan Start: 07/26/22 17:51 Freq: Status: Active Protocol: Document 10/20/22 09:06 [facility] (Rec: 09/30/22 08:18 [facility] [id number]) Physical Therapy Assessment Goals balance Short Term Goal (STG) Pt will be able to do 30sec SLS on LLE w/o lat shear or signficiant instability to show ability to wt accept in LLE 09/30-requiers cues and mirror and notes some discomfort after STG Duration 10/31 Women'S Lacrosse Coach Goal (LTG) Pt will report no difficulty w /knee on uneven surfaces. 09/30-hasn't tried LTG Duration 11/25 activities Short Term Goal (STG) Pt will be able to stand from a chair w/o pain in L knee STG Duration achieved 09/23 Women'S Lacrosse Coach Goal (LTG) Pt will be able to walk at least 3 miles on uneven surfaces w/o inc knee pain or swelling. 09/30-can do 1-2 miles consistantly LTG Duration 11/25 strength Short Term Goal (STG) Pt will be indep w/HEP 09/23-limited d/t recent onset of hip and back pain STG Duration achieved-advancing as able [facility] Goal (LTG) pt will score at least 3/5 on LPM and 5/5 BLE strength w/o pain to show improved stability in order to inc pt ability to perform activity. 09/30-mostly achieved LTG Duration 11/25 stairs Short Term Goal (STG) Pt will be able to ascend stairs without any pain in knee. STG Duration achieved 09/23 Women'S Lacrosse Coach Goal (LTG) Pt will be able to descend stairs without any pain in knee. 09/30-can most of the time but occ painful LTG Duration 11/25 Assessment Summary Assessment Pt had some knee soreness with the single leg DL and w/ lunges at end of reps. Limited knee ext before manual w/pain that improved to more comfortable and inc range after manual Physical Therapy Plan Frequency and Duration Frequency of Treatment 1-2x/wk Duration of treatment (weeks) 8 Plan of Care Start Date 09/30/22 Plan of Care End Date 11/25/22 Therapeutic Interventions Therapeutic Interventions Aquatic Therapy,Balance Training,Gait Training,Home Exercise Program,Joint Mobilizations,Manual Therapy, Neuromuscular Re-education, Orthotic/Prosthetic Management ,Patient/Caregiver Education, Self-Care/Home Management,Soft Tissue Mobilization,Taping, Therapeutic Activities, Therapeutic Exercises Modalities Cold Pack/Ice Massage,Electric Stimulation,Hot Packs, Infrared Therapy,Ultrasound Next Visit Focus/Plan Next Note Type Treatment Note Next Visit Plan Focus on single LLE ex. SLS, toe taps, SL deadlift, step ups on bosu & other uneven surface exercises
--- NOTE | 2022-10-06 09:48 | PT.OTN ---
Current Diagnoses Pain in left knee (10/06/22) Muscle weakness (generalized) (10/06/22) Difficulty in walking, not elsewhere classified (10/06/22) Physical Therapy Treatment Note PT-OP-A Visit Information Start: 07/26/22 17:51 Freq: Status: Active Protocol: Document 10/06/22 08:48 [facility] (Rec: 10/06/22 09:48 [facility] [id number]) Out-Patient Physical Therapy Visit Information Visit Information Visit Type Treatment Note Visit Start Time 09:06 Visit Stop Time 09:45 Total Visit Minutes 39 Visit Number 07/01 Number of WARD AIDE Visits 0 PT-OP-B Current Condition Start: 07/26/22 17:51 Freq: Status: Active Protocol: Document 07/27/22 10:47 [facility] (Rec: 07/27/22 12:25 [facility] [id number]) Current Condition History of Current Condition Onset Date 30 years Current Complaints L knee pain History of Current Condition Pt reports knee pain is an old issue that is ongoing that has just gotten worse. It started 30 years ago from twisting it in snow shoes in [place] and banged it. About 1 year ago, was bending down to do soething and he had a sudden sharp pain in L knee and it swelled up and stiffened up. SInce then, it sometimes feels like he is hyperextending it when he is going down hill or steps down and hurts. Pain is under knee cap but stiffness is more lat. No Xrays or MRIs. If he straigthens it and engages quads, it hurts.Pt reports also back issues. 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 Typically he walks for exercise 2x/day. HIs knee limits him. Typically, he would do a total of a couple miles a day w/his [place] Hodge. He would like to be able to walk 3+ miles at a time. It gets to a point at about 2 miles then he starts to get pain and if he over does it - it starts swelling. Sometimes when going down curb , he get a little popping then it stiffens and swells. Last week he went hunting and that was difficult d/t having to walk on a lot of rocks and he says i paid for it. Pt wears custom orthotics d/t hammer toes and plantar fascitis B Prior Treatments and Tests none Treatment Goals Patient/Caregiver Goals Be able to walk longer distances, be able to walk w/o worry of hurting it, be able to do stairs and hills, be able to squat and get up/dwon from chair w/o pain. PT-OP-C Subjective Start: 07/26/22 17:51 Freq: Status: Active Protocol: Document 10/06/22 08:48 [facility] (Rec: 10/06/22 09:48 [facility] [id number]) OP-PT Subjective Patient Comments Patient Comments Pt reports knee was sore walking in the snow. Its better than it had been but still not comfortable PT-OP-D Balance Start: 07/26/22 17:51 Freq: Status: Active Protocol: Document 09/30/22 07:30 [facility] (Rec: 09/30/22 08:18 [facility] [id number]) Balance Tests Single Limb Standing Single Limb- Right >30 sec Single Limb- Left >30 sec w/cues PT-OP-F Manual Assessment Start: 07/26/22 17:51 Freq: Status: Active Protocol: Document 07/27/22 10:47 [facility] (Rec: 07/27/22 12:25 [facility] [id number]) Manual Assessments Soft Tissue Assessment Soft Tissue Mobility Assessment med joint line tenderness, tightness of ITB, VL, VMO, HS, Calf Joint Mobility Assessment Joint Mobility Assessment IR of femur L; R ER; B ER of tibia, ER of R foot>L; more lat patella L PT-OP-G Mobility & Gait Start: 07/26/22 17:51 Freq: Status: Active Protocol: Document 07/27/22 10:47 [facility] (Rec: 07/27/22 12:25 [facility] [id number]) OP Gait Assessment Comments Gait Comments dec push off L>R , dec stance time L PT-OP-J Posture/Palpation/Skin Start: 07/26/22 17:51 Freq: Status: Active Protocol: Document 09/30/22 07:30 [facility] (Rec: 09/30/22 08:18 [facility] [id number]) Posture Evaluation [facility] Postural Classification System Lumbar Protective Mechanism Left AP 2 Lumbar Protective Mechanism Right AP 3 Lumbar Protective Mechanism Left PA 2 Lumbar Protective Mechanism Right PA 3 PT-OP-K Range of Motion Start: 07/26/22 17:51 Freq: Status: Active Protocol: Document 07/27/22 10:47 [facility] (Rec: 07/27/22 12:25 [facility] [id number]) Knee Goniometric Range of Motion Knee Right Flexion Active (degrees) 130 Extension Active (degrees) 4 Comments ankle ROM B: knee to walk 4.25 in B Left Flexion Active (degrees) 125 Extension Active (degrees) 8 Comments pain under patella PT-OP-L Special Tests Start: 07/26/22 17:51 Freq: Status: Active Protocol: Document 07/27/22 10:47 [facility] (Rec: 07/27/22 12:25 [facility] [id number]) Special Tests Knee Special Tests Teodoro's Test Test Results positive B tightness Meyer's Compression Test Results neg L Apley's Compression Test Results neg L Thessaly Test 5 Degrees Test Results neg L Fredrick Test Test Results neg L Tripp Chondromalacia Test Results positive L Fito's Test Results neg L Straight Leg Raise Test Results 45 deg B Gian Test Results positive B for TFL and hip flexor and RF tightness Valgus- 25 Degrees Comments mild pain and laxity L Varus- 25 Degrees Test Results neg L Posterior Draw Test Results neg L PT-OP-M Strength Start: 07/26/22 17:51 Freq: Status: Active Protocol: Document 09/30/22 07:30 [facility] (Rec: 09/30/22 08:18 [facility] [id number]) Hip Strength Hip Manual Muscle Testing Right Flexion (L2) 5 Normal Extension (S1) 4+ Good+ Abduction 5 Normal Adduction 5 Normal External Rotation 5 Normal Internal Rotation 5 Normal Left Flexion (L2) 5 Normal Extension (S1) 4+ Good+ Abduction 5 Normal Adduction 5 Normal External Rotation 5 Normal Internal Rotation 5 Normal Knee Strength Knee Manual Muscle Testing Right Flexion (S2) 5 Normal Extension (L3) 5 Normal Left Flexion (S2) 5 Normal Extension (L3) 5 Normal Ankle/Foot Strength Ankle and Foot Manual Muscle Testing Right Dorsiflexion (L4) 5 Normal Plantarflexion (S1) 5 Normal Comments 20 heel raises B Left Dorsiflexion (L4) 5 Normal Plantarflexion (S1) 5 Normal Comments cues required for heel raises to keep knee straight-pain in knee-twinging PT-OP-Q Treatments Start: 07/26/22 17:51 Freq: Status: Active Protocol: Document 10/06/22 08:48 [facility] (Rec: 10/06/22 09:48 [facility] [id number]) Cardio Equipment Bicycle (Upright) Duration (Minutes) 5 Resistance 10 Seat Position 11 Therapeutic Exercises Standing Exercises hip hike Standing Exercise Name ball at wall Side bilateral Reps/Minutes 10 Single Leg Deadlift Standing Exercise Name review Side left Reps/Minutes 10 Comments hands on shuttle Manual Therapy Treatment Soft Tissue Mobilization patellar tendon Body Location L Mobilization Type Rolling,Strumming,Sustained Pressure Intensity/Depth Moderate L ITB Body Location along ITB & TFL Mobilization Type Rolling Intensity/Depth Moderate Body Position Hooklying Comments w/hip IR/er Joint Mobilizations hip Joint L hookyling on axis FM ER Patella mobs Joint L Direction med/ inf/superior glides Grade III Body Position Supine Comments Manual, instructed to perform at home Neuro Re-Education Treatment Balance Activities bosu Comments 1. step up to both LEs x10 B 2. fwd lunge mini x10 B 3. squats black side x10 mini 4. lat step up to both LEs x10 B PT-OP-T Assessment and Plan Start: 07/26/22 17:51 Freq: Status: Active Protocol: Document 10/06/22 08:48 [facility] (Rec: 10/06/22 09:48 [facility] [id number]) Physical Therapy Assessment Goals balance Short Term Goal (STG) Pt will be able to do 30sec SLS on LLE w/o lat shear or signficiant instability to show ability to wt accept in LLE 09/30-requiers cues and mirror and notes some discomfort after STG Duration 10/31 [facility] Goal (LTG) Pt will report no difficulty w /knee on uneven surfaces. 09/30-hasn't tried LTG Duration 11/25 activities Short Term Goal (STG) Pt will be able to stand from a chair w/o pain in L knee STG Duration achieved 09/23 [facility] Goal (LTG) Pt will be able to walk at least 3 miles on uneven surfaces w/o inc knee pain or swelling. 09/30-can do 1-2 miles consistantly LTG Duration 2 strength Short Term Goal (STG) Pt will be indep w/HEP 09/23-limited d/t recent onset of hip and back pain STG Duration achieved-advancing as able Rn Gynecology Goal (LTG) pt will score at least 3/5 on LPM and 5/5 BLE strength w/o pain to show improved stability in order to inc pt ability to perform activity. 09/30-mostly achieved LTG Duration 2 stairs Short Term Goal (STG) Pt will be able to ascend stairs without any pain in knee. STG Duration achieved 09/23 Rn Gynecology Goal (LTG) Pt will be able to descend stairs without any pain in knee. 09/30-can most of the time but occ painful LTG Duration 2 Assessment Summary Assessment Pt did better with all exercises today and showed more stability in SL and w/ uneven surfaces and did not c/ o pain. Improved alignment w/ SL DL. He did have improved ER w/manual Physical Therapy Plan Frequency and Duration Frequency of Treatment 1-2x/wk Duration of treatment (weeks) 8 Plan of Care Start Date 09/30/22 Plan of Care End Date 11/25/22 Next Visit Focus/Plan Next Note Type Treatment Note Next Visit Plan Focus on single LLE ex. SLS, toe taps, SL deadlift, step ups on bosu & other uneven surface exercises
--- NOTE | 2022-10-20 09:00 | PT.OTN ---
Current Diagnoses Pain in left knee (10/20/22) Muscle weakness (generalized) (10/20/22) Difficulty in walking, not elsewhere classified (10/20/22) Physical Therapy Treatment Note PT-OP-A Visit Information Start: 07/26/22 17:51 Freq: Status: Active Protocol: Document 10/20/22 08:16 [facility] (Rec: 10/20/22 09:04 [facility] [id number]) Out-Patient Physical Therapy Visit Information Visit Information Visit Type Treatment Note Visit Note PN/ DC in 5 visits Visit Start Time 08:16 Visit Stop Time 09:00 Total Visit Minutes 44 Visit Number 07/31 Number of INDUSTRIAL ORGANIZATIONAL PSYCHOLOGIST Visits 0 PT-OP-B Current Condition Start: 07/26/22 17:51 Freq: Status: Active Protocol: Document 07/27/22 10:47 [facility] (Rec: 07/27/22 12:25 [facility] [id number]) Current Condition History of Current Condition Onset Date 30 years Current Complaints L knee pain History of Current Condition Pt reports knee pain is an old issue that is ongoing that has just gotten worse. It started 30 years ago from twisting it in snow shoes in [place] and banged it. About 1 year ago, was bending down to do soething and he had a sudden sharp pain in L knee and it swelled up and stiffened up. SInce then, it sometimes feels like he is hyperextending it when he is going down hill or steps down and hurts. Pain is under knee cap but stiffness is more lat. No Xrays or MRIs. If he straigthens it and engages quads, it hurts.Pt reports also back issues. 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 Typically he walks for exercise 2x/day. HIs knee limits him. Typically, he would do a total of a couple miles a day w/his [place] [employer]. He would like to be able to walk 3+ miles at a time. It gets to a point at about 2 miles then he starts to get pain and if he over does it - it starts swelling. Sometimes when going down curb , he get a little popping then it stiffens and swells. Last week he went hunting and that was difficult d/t having to walk on a lot of rocks and he says i paid for it. Pt wears custom orthotics d/t hammer toes and plantar fascitis B Prior Treatments and Tests none Treatment Goals Patient/Caregiver Goals Be able to walk longer distances, be able to walk w/o worry of hurting it, be able to do stairs and hills, be able to squat and get up/dwon from chair w/o pain. PT-OP-C Subjective Start: 07/26/22 17:51 Freq: Status: Active Protocol: Document 10/20/22 08:16 [facility] (Rec: 10/20/22 09:04 [facility] [id number]) OP-PT Subjective Patient Comments Patient Comments Pt stated doing HEP, not sure if doing SL DL but unsure if doing correctly. L Knee getting slower better. Some days 1 step back. He walked 3 miles and no issues. Still little shaky SLS on L LE. PT-OP-D Balance Start: 07/26/22 17:51 Freq: Status: Active Protocol: Document 09/30/22 09:06 [facility] (Rec: 09/30/22 08:18 [facility] [id number]) Balance Tests Single Limb Standing Single Limb- Right >30 sec Single Limb- Left >30 sec w/cues PT-OP-F Manual Assessment Start: 07/26/22 17:51 Freq: Status: Active Protocol: Document 07/27/22 10:47 [facility] (Rec: 07/27/22 12:25 [facility] [id number]) Manual Assessments Soft Tissue Assessment Soft Tissue Mobility Assessment med joint line tenderness, tightness of ITB, VL, VMO, HS, Calf Joint Mobility Assessment Joint Mobility Assessment IR of femur L; R ER; B ER of tibia, ER of R foot>L; more lat patella L PT-OP-G Mobility & Gait Start: 07/26/22 17:51 Freq: Status: Active Protocol: Document 07/27/22 10:47 [facility] (Rec: 07/27/22 12:25 [facility] [id number]) OP Gait Assessment Comments Gait Comments dec push off L>R , dec stance time L PT-OP-J Posture/Palpation/Skin Start: 07/26/22 17:51 Freq: Status: Active Protocol: Document 09/30/22 09:06 [facility] (Rec: 09/30/22 08:18 [facility] [id number]) Posture Evaluation [facility] Postural Classification System Lumbar Protective Mechanism Left AP 2 Lumbar Protective Mechanism Right AP 3 Lumbar Protective Mechanism Left PA 2 Lumbar Protective Mechanism Right PA 3 PT-OP-K Range of Motion Start: 07/26/22 17:51 Freq: Status: Active Protocol: Document 07/27/22 10:47 [facility] (Rec: 07/27/22 12:25 [facility] [id number]) Knee Goniometric Range of Motion Knee Right Flexion Active (degrees) 130 Extension Active (degrees) 4 Comments ankle ROM B: knee to walk 4.25 in B Left Flexion Active (degrees) 125 Extension Active (degrees) 8 Comments pain under patella PT-OP-L Special Tests Start: 07/26/22 17:51 Freq: Status: Active Protocol: Document 07/27/22 10:47 [facility] (Rec: 07/27/22 12:25 [facility] [id number]) Special Tests Knee Special Tests Teodoro's Test Test Results positive B tightness Meyer's Compression Test Results neg L Apley's Compression Test Results neg L Thessaly Test 5 Degrees Test Results neg L Fredrick Test Test Results neg L Tripp Chondromalacia Test Results positive L Fito's Test Results neg L Straight Leg Raise Test Results 45 deg B Gian Test Results positive B for TFL and hip flexor and RF tightness Valgus- 25 Degrees Comments mild pain and laxity L Varus- 25 Degrees Test Results neg L Posterior Draw Test Results neg L PT-OP-M Strength Start: 07/26/22 17:51 Freq: Status: Active Protocol: Document 09/30/22 09:06 [facility] (Rec: 09/30/22 08:18 [facility] [id number]) Hip Strength Hip Manual Muscle Testing Right Flexion (L2) 5 Normal Extension (S1) 4+ Good+ Abduction 5 Normal Adduction 5 Normal External Rotation 5 Normal Internal Rotation 5 Normal Left Flexion (L2) 5 Normal Extension (S1) 4+ Good+ Abduction 5 Normal Adduction 5 Normal External Rotation 5 Normal Internal Rotation 5 Normal Knee Strength Knee Manual Muscle Testing Right Flexion (S2) 5 Normal Extension (L3) 5 Normal Left Flexion (S2) 5 Normal Extension (L3) 5 Normal Ankle/Foot Strength Ankle and Foot Manual Muscle Testing Right Dorsiflexion (L4) 5 Normal Plantarflexion (S1) 5 Normal Comments 20 heel raises B Left Dorsiflexion (L4) 5 Normal Plantarflexion (S1) 5 Normal Comments cues required for heel raises to keep knee straight-pain in knee-twinging PT-OP-Q Treatments Start: 07/26/22 17:51 Freq: Status: Active Protocol: Document 10/20/22 08:16 [facility] (Rec: 10/20/22 09:04 [facility] [id number]) Cardio Equipment Bicycle (Upright) Duration (Minutes) 6 Resistance 10 Seat Position 11 Other 2.60 miles, 74 RPM Therapeutic Exercises Standing Exercises hip hike Standing Exercise Name glut med lift Side bilateral Equipment Used small ball on wall vs hip slide on wall (no ball at home ) Reps/Minutes 2x10 Comments good feedback glut med work, and form Single Leg Deadlift Standing Exercise Name review Side left Equipment Used hands can hover back chair Reps/Minutes 10 Comments cued hip hinge UEs target knee ht, good form knee stab w/ behind toes Neuro Re-Education Treatment Balance Activities bosu Surface B Reps/Duration 10 reps each Comments 1. step up to both LEs x10 B 2. fwd lunge mini x10 B 3. squats on black side (dome down)x10 mini 4. lat step up to both LEs x10 B 5. modified reverse lunge step back x10 *improved less shakiness mini squat with cues for glut fac, slower pacing, light contact if needed rail front. Self-Care/Home Management Treatment Education Patient Education Body Mechanics,Home Exercise Program,Pain Management Other Education Time spent at end tx: ice cup to Medial L knee and patella mob for self decrease distal tension adductos and quadricep comfort. PT-OP-T Assessment and Plan Start: 07/26/22 17:51 Freq: Status: Active Protocol: Document 10/20/22 08:16 [facility] (Rec: 10/20/22 09:04 [facility] [id number]) Physical Therapy Assessment Goals balance Short Term Goal (STG) Pt will be able to do 30sec SLS on LLE w/o lat shear or signficiant instability to show ability to wt accept in LLE 09/30-requiers cues and mirror and notes some discomfort after STG Duration 10/31 Tool Radial Drill Press Set Up Operator Goal (LTG) Pt will report no difficulty w /knee on uneven surfaces. 09/30-hasn't tried LTG Duration 2/9 activities Short Term Goal (STG) Pt will be able to stand from a chair w/o pain in L knee STG Duration achieved 09/23 Skilled Nursing Goal (LTG) Pt will be able to walk at least 3 miles on uneven surfaces w/o inc knee pain or swelling. 09/30-can do 1-2 miles consistantly LTG Duration 2 strength Short Term Goal (STG) Pt will be indep w/HEP 09/23-limited d/t recent onset of hip and back pain STG Duration achieved-advancing as able Skilled Nursing Goal (LTG) pt will score at least 3/5 on LPM and 5/5 BLE strength w/o pain to show improved stability in order to inc pt ability to perform activity. 09/30-mostly achieved LTG Duration 11/25 stairs Short Term Goal (STG) Pt will be able to ascend stairs without any pain in knee. STG Duration achieved 09/23 Skilled Nursing Goal (LTG) Pt will be able to descend stairs without any pain in knee. 09/30-can most of the time but occ painful LTG Duration 11/25 Assessment Summary Assessment Pt improved L knee alignment stability during all ther ex today and less UE support with BOSU ex, able to hip hinge lower during RDL knee height with L knee and focused self corrections, painfree. Pt reported little discomfort medial L knee, improved post ed self patella mob and use ice cup for pain. Physical Therapy Plan Frequency and Duration Frequency of Treatment 1-2x/wk Duration of treatment (weeks) 8 Plan of Care Start Date 09/30/22 Plan of Care End Date 11/25/22 Therapeutic Interventions Therapeutic Interventions Aquatic Therapy,Balance Training,Gait Training,Home Exercise Program,Joint Mobilizations,Manual Therapy, Neuromuscular Re-education, Orthotic/Prosthetic Management ,Patient/Caregiver Education, Self-Care/Home Management,Soft Tissue Mobilization,Taping, Therapeutic Activities, Therapeutic Exercises Modalities Cold Pack/Ice Massage,Electric Stimulation,Hot Packs, Infrared Therapy,Ultrasound Next Visit Focus/Plan Next Note Type Treatment Note Next Visit Plan Focus on single LLE ex. SLS, toe taps, SL deadlift, step ups on bosu & other uneven surface exercises
--- NOTE | 2022-10-20 09:00 | PT.OTN ---
Current Diagnoses Pain in left knee (10/20/22) Muscle weakness (generalized) (10/20/22) Difficulty in walking, not elsewhere classified (10/20/22) Physical Therapy Treatment Note PT-OP-A Visit Information Start: 07/26/22 17:51 Freq: Status: Active Protocol: Document 10/20/22 08:16 SP (Rec: 10/20/22 09:04 SP [id number]) Out-Patient Physical Therapy Visit Information Visit Information Visit Type Treatment Note Visit Note PN/ DC in 5 visits Visit Start Time 08:16 Visit Stop Time 09:00 Total Visit Minutes 44 Visit Number 07/31 Number of WO[employer]WORK[employer] HAND Visits 0 PT-OP-B Current Condition Start: 07/26/22 17:51 Freq: Status: Active Protocol: Document 07/27/22 10:47 [facility] (Rec: 07/27/22 12:25 [facility] [id number]) Current Condition History of Current Condition Onset Date 30 years Current Complaints L knee pain History of Current Condition Pt reports knee pain is an old issue that is ongoing that has just gotten worse. It started 30 years ago from twisting it in snow shoes in [place] and banged it. About 1 year ago, was bending down to do soething and he had a sudden sharp pain in L knee and it swelled up and stiffened up. SInce then, it sometimes feels like he is hyperextending it when he is going down hill or steps down and hurts. Pain is under knee cap but stiffness is more lat. No Xrays or MRIs. If he straigthens it and engages quads, it hurts.Pt reports also back issues. 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 Typically he walks for exercise 2x/day. HIs knee limits him. Typically, he would do a total of a couple miles a day w/his [place]. He would like to be able to walk 3+ miles at a time. It gets to a point at about 2 miles then he starts to get pain and if he over does it - it starts swelling. Sometimes when going down curb , he get a little popping then it stiffens and swells. Last week he went hunting and that was difficult d/t having to walk on a lot of rocks and he says i paid for it. Pt wears custom orthotics d/t hammer toes and plantar fascitis B Prior Treatments and Tests none Treatment Goals Patient/Caregiver Goals Be able to walk longer distances, be able to walk w/o worry of hurting it, be able to do stairs and hills, be able to squat and get up/dwon from chair w/o pain. PT-OP-C Subjective Start: 07/26/22 17:51 Freq: Status: Active Protocol: Document 10/20/22 08:16 SP (Rec: 10/20/22 09:04 SP [id number]) OP-PT Subjective Patient Comments Patient Comments Pt stated doing HEP, not sure if doing SL DL but unsure if doing correctly. L Knee getting slower better. Some days 1 step back. He walked 3 miles and no issues. Still little shaky SLS on L LE. PT-OP-D Balance Start: 07/26/22 17:51 Freq: Status: Active Protocol: Document 09/30/22 09:06 [facility] (Rec: 09/30/22 08:18 [facility] [id number]) Balance Tests Single Limb Standing Single Limb- Right >30 sec Single Limb- Left >30 sec w/cues PT-OP-F Manual Assessment Start: 07/26/22 17:51 Freq: Status: Active Protocol: Document 07/27/22 10:47 [facility] (Rec: 07/27/22 12:25 [facility] [id number]) Manual Assessments Soft Tissue Assessment Soft Tissue Mobility Assessment med joint line tenderness, tightness of ITB, VL, VMO, HS, Calf Joint Mobility Assessment Joint Mobility Assessment IR of femur L; R ER; B ER of tibia, ER of R foot>L; more lat patella L PT-OP-G Mobility & Gait Start: 07/26/22 17:51 Freq: Status: Active Protocol: Document 07/27/22 10:47 [facility] (Rec: 07/27/22 12:25 [facility] [id number]) OP Gait Assessment Comments Gait Comments dec push off L>R , dec stance time L PT-OP-J Posture/Palpation/Skin Start: 07/26/22 17:51 Freq: Status: Active Protocol: Document 09/30/22 09:06 [facility] (Rec: 09/30/22 08:18 [facility] [id number]) Posture Evaluation Raymond Postural Classification System Lumbar Protective Mechanism Left AP 2 Lumbar Protective Mechanism Right AP 3 Lumbar Protective Mechanism Left PA 2 Lumbar Protective Mechanism Right PA 3 PT-OP-K Range of Motion Start: 07/26/22 17:51 Freq: Status: Active Protocol: Document 07/27/22 10:47 [facility] (Rec: 07/27/22 12:25 [facility] [id number]) Knee Goniometric Range of Motion Knee Right Flexion Active (degrees) 130 Extension Active (degrees) 4 Comments ankle ROM B: knee to walk 4.25 in B Left Flexion Active (degrees) 125 Extension Active (degrees) 8 Comments pain under patella PT-OP-L Special Tests Start: 07/26/22 17:51 Freq: Status: Active Protocol: Document 07/27/22 10:47 [facility] (Rec: 07/27/22 12:25 [facility] [id number]) Special Tests Knee Special Tests Teodoro's Test Test Results positive B tightness Meyer's Compression Test Results neg L Apley's Compression Test Results neg L Thessaly Test 5 Degrees Test Results neg L Fredrick Test Test Results neg L Tripp Chondromalacia Test Results positive L Fito's Test Results neg L Straight Leg Raise Test Results 45 deg B Gian Test Results positive B for TFL and hip flexor and RF tightness Valgus- 25 Degrees Comments mild pain and laxity L Varus- 25 Degrees Test Results neg L Posterior Draw Test Results neg L PT-OP-M Strength Start: 07/26/22 17:51 Freq: Status: Active Protocol: Document 09/30/22 09:06 [facility] (Rec: 09/30/22 08:18 [facility] [id number]) Hip Strength Hip Manual Muscle Testing Right Flexion (L2) 5 Normal Extension (S1) 4+ Good+ Abduction 5 Normal Adduction 5 Normal External Rotation 5 Normal Internal Rotation 5 Normal Left Flexion (L2) 5 Normal Extension (S1) 4+ Good+ Abduction 5 Normal Adduction 5 Normal External Rotation 5 Normal Internal Rotation 5 Normal Knee Strength Knee Manual Muscle Testing Right Flexion (S2) 5 Normal Extension (L3) 5 Normal Left Flexion (S2) 5 Normal Extension (L3) 5 Normal Ankle/Foot Strength Ankle and Foot Manual Muscle Testing Right Dorsiflexion (L4) 5 Normal Plantarflexion (S1) 5 Normal Comments 20 heel raises B Left Dorsiflexion (L4) 5 Normal Plantarflexion (S1) 5 Normal Comments cues required for heel raises to keep knee straight-pain in knee-twinging PT-OP-Q Treatments Start: 07/26/22 17:51 Freq: Status: Active Protocol: Document 10/20/22 08:16 SP (Rec: 10/20/22 09:04 SP [id number]) Cardio Equipment Bicycle (Upright) Duration (Minutes) 6 Resistance 10 Seat Position 11 Other 2.60 miles, 74 RPM Therapeutic Exercises Standing Exercises hip hike Standing Exercise Name glut med lift Side bilateral Equipment Used small ball on wall vs hip slide on wall (no ball at home ) Reps/Minutes 2x10 Comments good feedback glut med work, and form Single Leg Deadlift Standing Exercise Name review Side left Equipment Used hands can hover back chair Reps/Minutes 10 Comments cued hip hinge UEs target knee ht, good form knee stab w/ behind toes Neuro Re-Education Treatment Balance Activities bosu Surface B Reps/Duration 10 reps each Comments 1. step up to both LEs x10 B 2. fwd lunge mini x10 B 3. squats on black side (dome down)x10 mini 4. lat step up to both LEs x10 B 5. modified reverse lunge step back x10 *improved less shakiness mini squat with cues for glut fac, slower pacing, light contact if needed rail front. Self-Care/Home Management Treatment Education Patient Education Body Mechanics,Home Exercise Program,Pain Management Other Education Time spent at end tx: ice cup to Medial L knee and patella mob for self decrease distal tension adductos and quadricep comfort. PT-OP-T Assessment and Plan Start: 07/26/22 17:51 Freq: Status: Active Protocol: Document 10/20/22 08:16 SP (Rec: 10/20/22 09:04 SP [id number]) Physical Therapy Assessment Goals balance Short Term Goal (STG) Pt will be able to do 30sec SLS on LLE w/o lat shear or signficiant instability to show ability to wt accept in LLE 09/30-requiers cues and mirror and notes some discomfort after STG Duration 10/31 Service Assistant Goal (LTG) Pt will report no difficulty w /knee on uneven surfaces. 09/30-hasn't tried LTG Duration 2/9 activities Short Term Goal (STG) Pt will be able to stand from a chair w/o pain in L knee STG Duration achieved 09/23 Fdc Goal (LTG) Pt will be able to walk at least 3 miles on uneven surfaces w/o inc knee pain or swelling. 09/30-can do 1-2 miles consistantly LTG Duration 2 strength Short Term Goal (STG) Pt will be indep w/HEP 09/23-limited d/t recent onset of hip and back pain STG Duration achieved-advancing as able Fdc Goal (LTG) pt will score at least 3/5 on LPM and 5/5 BLE strength w/o pain to show improved stability in order to inc pt ability to perform activity. 09/30-mostly achieved LTG Duration 11/25 stairs Short Term Goal (STG) Pt will be able to ascend stairs without any pain in knee. STG Duration achieved 09/23 Fdc Goal (LTG) Pt will be able to descend stairs without any pain in knee. 09/30-can most of the time but occ painful LTG Duration 11/25 Assessment Summary Assessment Pt improved L knee alignment stability during all ther ex today and less UE support with BOSU ex, able to hip hinge lower during RDL knee height with L knee and focused self corrections, painfree. Pt reported little discomfort medial L knee, improved post ed self patella mob and use ice cup for pain. Physical Therapy Plan Frequency and Duration Frequency of Treatment 1-2x/wk Duration of treatment (weeks) 8 Plan of Care Start Date 09/30/22 Plan of Care End Date 11/25/22 Therapeutic Interventions Therapeutic Interventions Aquatic Therapy,Balance Training,Gait Training,Home Exercise Program,Joint Mobilizations,Manual Therapy, Neuromuscular Re-education, Orthotic/Prosthetic Management ,Patient/Caregiver Education, Self-Care/Home Management,Soft Tissue Mobilization,Taping, Therapeutic Activities, Therapeutic Exercises Modalities Cold Pack/Ice Massage,Electric Stimulation,Hot Packs, Infrared Therapy,Ultrasound Next Visit Focus/Plan Next Note Type Treatment Note Next Visit Plan Focus on single LLE ex. SLS, toe taps, SL deadlift, step ups on bosu & other uneven surface exercises
--- NOTE | 2022-10-20 09:06 | PT.OPPN ---
Current Diagnoses Pain in left knee (10/20/22) Muscle weakness (generalized) (10/20/22) Difficulty in walking, not elsewhere classified (10/20/22) Physical Therapy Progress Note PT-OP-A Visit Information Start: 07/26/22 17:51 Freq: Status: Active Protocol: Document 10/20/22 09:06 [facility] (Rec: 09/30/22 08:18 [facility] [id number]) Out-Patient Physical Therapy Visit Information Visit Information Visit Type Progress Note Visit Start Time 07:31 Visit Stop Time 08:12 Total Visit Minutes 41 Visit Number 05/31 Number of RADIO PERSONALITY Visits 0 PT-OP-B Current Condition Start: 07/26/22 17:51 Freq: Status: Active Protocol: Document 07/27/22 10:47 [facility] (Rec: 07/27/22 12:25 [facility] [id number]) Current Condition History of Current Condition Onset Date 30 years Current Complaints L knee pain History of Current Condition Pt reports knee pain is an old issue that is ongoing that has just gotten worse. It started 30 years ago from twisting it in snow shoes in [place] and banged it. About 1 year ago, was bending down to do soething and he had a sudden sharp pain in L knee and it swelled up and stiffened up. SInce then, it sometimes feels like he is hyperextending it when he is going down hill or steps down and hurts. Pain is under knee cap but stiffness is more lat. No Xrays or MRIs. If he straigthens it and engages quads, it hurts.Pt reports also back issues. 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 Typically he walks for exercise 2x/day. HIs knee limits him. Typically, he would do a total of a couple miles a day w/his [place] Hodge. He would like to be able to walk 3+ miles at a time. It gets to a point at about 2 miles then he starts to get pain and if he over does it - it starts swelling. Sometimes when going down curb , he get a little popping then it stiffens and swells. Last week he went hunting and that was difficult d/t having to walk on a lot of rocks and he says i paid for it. Pt wears custom orthotics d/t hammer toes and plantar fascitis B Prior Treatments and Tests none Treatment Goals Patient/Caregiver Goals Be able to walk longer distances, be able to walk w/o worry of hurting it, be able to do stairs and hills, be able to squat and get up/dwon from chair w/o pain. PT-OP-C Subjective Start: 07/26/22 17:51 Freq: Status: Active Protocol: Document 10/20/22 09:06 [facility] (Rec: 09/30/22 08:18 [facility] [id number]) OP-PT Subjective Patient Comments Patient Comments Pt reports he has been doing walks 1-2 miles and he is fine after that. Hip is doing better. He has to limit SL time with exercises and squats or has inc pain. Patient Reported Progress Improving PT-OP-D Balance Start: 07/26/22 17:51 Freq: Status: Active Protocol: Document 10/20/22 09:06 [facility] (Rec: 09/30/22 08:18 [facility] [id number]) Balance Tests Single Limb Standing Single Limb- Right >30 sec Single Limb- Left >30 sec w/cues PT-OP-F Manual Assessment Start: 07/26/22 17:51 Freq: Status: Active Protocol: Document 07/27/22 10:47 [facility] (Rec: 07/27/22 12:25 [facility] [id number]) Manual Assessments Soft Tissue Assessment Soft Tissue Mobility Assessment med joint line tenderness, tightness of ITB, VL, VMO, HS, Calf Joint Mobility Assessment Joint Mobility Assessment IR of femur L; R ER; B ER of tibia, ER of R foot>L; more lat patella L PT-OP-G Mobility & Gait Start: 07/26/22 17:51 Freq: Status: Active Protocol: Document 07/27/22 10:47 [facility] (Rec: 07/27/22 12:25 [facility] [id number]) OP Gait Assessment Comments Gait Comments dec push off L>R , dec stance time L PT-OP-J Posture/Palpation/Skin Start: 07/26/22 17:51 Freq: Status: Active Protocol: Document 10/20/22 09:06 [facility] (Rec: 09/30/22 08:18 [facility] [id number]) Posture Evaluation Raymond Postural Classification System Lumbar Protective Mechanism Left AP 2 Lumbar Protective Mechanism Right AP 3 Lumbar Protective Mechanism Left PA 2 Lumbar Protective Mechanism Right PA 3 PT-OP-K Range of Motion Start: 07/26/22 17:51 Freq: Status: Active Protocol: Document 07/27/22 10:47 [facility] (Rec: 07/27/22 12:25 [facility] [id number]) Knee Goniometric Range of Motion Knee Measured in Degrees Right Flexion Active (degrees) 130 Extension Active (degrees) 4 Comments ankle ROM B: knee to walk 4.25 in B Left Flexion Active (degrees) 125 Extension Active (degrees) 8 Comments pain under patella PT-OP-L Special Tests Start: 07/26/22 17:51 Freq: Status: Active Protocol: Document 07/27/22 10:47 [facility] (Rec: 07/27/22 12:25 [facility] [id number]) Special Tests Knee Special Tests Teodoro's Test Test Results positive B tightness Meyer's Compression Test Results neg L Apley's Compression Test Results neg L Thessaly Test 5 Degrees Test Results neg L Fredrick Test Test Results neg L Tripp Chondromalacia Test Results positive L Fito's Test Results neg L Straight Leg Raise Test Results 45 deg B Gian Test Results positive B for TFL and hip flexor and RF tightness Valgus- 25 Degrees Comments mild pain and laxity L Varus- 25 Degrees Test Results neg L Posterior Draw Test Results neg L PT-OP-M Strength Start: 07/26/22 17:51 Freq: Status: Active Protocol: Document 10/20/22 09:06 [facility] (Rec: 09/30/22 08:18 [facility] [id number]) Hip Strength Hip Manual Muscle Testing Right Flexion (L2) 5 Normal Extension (S1) 4+ Good+ Abduction 5 Normal Adduction 5 Normal External Rotation 5 Normal Internal Rotation 5 Normal Left Flexion (L2) 5 Normal Extension (S1) 4+ Good+ Abduction 5 Normal Adduction 5 Normal External Rotation 5 Normal Internal Rotation 5 Normal Knee Strength Knee Manual Muscle Testing Right Flexion (S2) 5 Normal Extension (L3) 5 Normal Left Flexion (S2) 5 Normal Extension (L3) 5 Normal Ankle/Foot Strength Ankle and Foot Manual Muscle Testing Right Dorsiflexion (L4) 5 Normal Plantarflexion (S1) 5 Normal Comments 20 heel raises B Left Dorsiflexion (L4) 5 Normal Plantarflexion (S1) 5 Normal Comments cues required for heel raises to keep knee straight-pain in knee-twinging PT-OP-T Assessment and Plan Start: 07/26/22 17:51 Freq: Status: Active Protocol: Document 10/20/22 09:06 [facility] (Rec: 09/30/22 08:18 [facility] [id number]) Physical Therapy Assessment Goals balance Short Term Goal (STG) Pt will be able to do 30sec SLS on LLE w/o lat shear or signficiant instability to show ability to wt accept in LLE 09/30-requiers cues and mirror and notes some discomfort after STG Duration 10/31 Mud Analysis Well Logging Operator Goal (LTG) Pt will report no difficulty w /knee on uneven surfaces. 09/30-hasn't tried LTG Duration 11/25 activities Short Term Goal (STG) Pt will be able to stand from a chair w/o pain in L knee STG Duration achieved 09/23 Mud Analysis Well Logging Operator Goal (LTG) Pt will be able to walk at least 3 miles on uneven surfaces w/o inc knee pain or swelling. 09/30-can do 1-2 miles consistantly LTG Duration 11/25 strength Short Term Goal (STG) Pt will be indep w/HEP 09/23-limited d/t recent onset of hip and back pain STG Duration achieved-advancing as able Usp Goal (LTG) pt will score at least 3/5 on LPM and 5/5 BLE strength w/o pain to show improved stability in order to inc pt ability to perform activity. 09/30-mostly achieved LTG Duration 11/25 stairs Short Term Goal (STG) Pt will be able to ascend stairs without any pain in knee. STG Duration achieved 09/23 Mud Analysis Well Logging Operator Goal (LTG) Pt will be able to descend stairs without any pain in knee. 09/30-can most of the time but occ painful LTG Duration 11/25 Assessment Summary Assessment Pt had some knee soreness with the single leg DL and w/ lunges at end of reps. Limited knee ext before manual w/pain that improved to more comfortable and inc range after manual Physical Therapy Plan Frequency and Duration Frequency of Treatment 1-2x/wk Duration of treatment (weeks) 8 Plan of Care Start Date 09/30/22 Plan of Care End Date 11/25/22 Therapeutic Interventions Therapeutic Interventions Aquatic Therapy,Balance Training,Gait Training,Home Exercise Program,Joint Mobilizations,Manual Therapy, Neuromuscular Re-education, Orthotic/Prosthetic Management ,Patient/Caregiver Education, Self-Care/Home Management,Soft Tissue Mobilization,Taping, Therapeutic Activities, Therapeutic Exercises Modalities Cold Pack/Ice Massage,Electric Stimulation,Hot Packs, Infrared Therapy,Ultrasound Next Visit Focus/Plan Next Note Type Treatment Note Next Visit Plan Focus on single LLE ex. SLS, toe taps, SL deadlift, step ups on bosu & other uneven surface exercises
--- NOTE | 2022-10-25 15:15 | PT.OTN ---
Current Diagnoses Pain in left knee (10/25/22) Muscle weakness (generalized) (10/25/22) Difficulty in walking, not elsewhere classified (10/25/22) Physical Therapy Treatment Note PT-OP-A Visit Information Start: 07/26/22 17:51 Freq: Status: Active Protocol: Document 10/25/22 14:28 SP (Rec: 10/25/22 15:50 SP [id number]) Out-Patient Physical Therapy Visit Information Visit Information Visit Type Treatment Note Visit Start Time 14:28 Visit Stop Time 15:15 Total Visit Minutes 47 Visit Number 08/31 Number of RELIEF MATE Visits 1 PT-OP-B Current Condition Start: 07/26/22 17:51 Freq: Status: Active Protocol: Document 07/27/22 10:47 [facility] (Rec: 07/27/22 12:25 [facility] [id number]) Current Condition History of Current Condition Onset Date 30 years Current Complaints L knee pain History of Current Condition Pt reports knee pain is an old issue that is ongoing that has just gotten worse. It started 30 years ago from twisting it in snow shoes in [place] and banged it. About 1 year ago, was bending down to do soething and he had a sudden sharp pain in L knee and it swelled up and stiffened up. SInce then, it sometimes feels like he is hyperextending it when he is going down hill or steps down and hurts. Pain is under knee cap but stiffness is more lat. No Xrays or MRIs. If he straigthens it and engages quads, it hurts.Pt reports also back issues. 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 Typically he walks for exercise 2x/day. HIs knee limits him. Typically, he would do a total of a couple miles a day w/his [place] Hodge. He would like to be able to walk 3+ miles at a time. It gets to a point at about 2 miles then he starts to get pain and if he over does it - it starts swelling. Sometimes when going down curb , he get a little popping then it stiffens and swells. Last week he went hunting and that was difficult d/t having to walk on a lot of rocks and he says i paid for it. Pt wears custom orthotics d/t hammer toes and plantar fascitis B Prior Treatments and Tests none Treatment Goals Patient/Caregiver Goals Be able to walk longer distances, be able to walk w/o worry of hurting it, be able to do stairs and hills, be able to squat and get up/dwon from chair w/o pain. PT-OP-C Subjective Start: 07/26/22 17:51 Freq: Status: Active Protocol: Document 10/25/22 14:28 SP (Rec: 10/25/22 15:50 SP [id number]) OP-PT Subjective Patient Comments Patient Comments Pt reports no having pain lately with walking dog about 2.5 miles 2x/day. Did have little pain L medial knee ( pesancerine area) after last tx pressed on the area and went away. PT-OP-D Balance Start: 07/26/22 17:51 Freq: Status: Active Protocol: Document 09/30/22 09:06 [facility] (Rec: 09/30/22 08:18 [facility] [id number]) Balance Tests Single Limb Standing Single Limb- Right >30 sec Single Limb- Left >30 sec w/cues PT-OP-F Manual Assessment Start: 07/26/22 17:51 Freq: Status: Active Protocol: Document 07/27/22 10:47 [facility] (Rec: 07/27/22 12:25 [facility] [id number]) Manual Assessments Soft Tissue Assessment Soft Tissue Mobility Assessment med joint line tenderness, tightness of ITB, VL, VMO, HS, Calf Joint Mobility Assessment Joint Mobility Assessment IR of femur L; R ER; B ER of tibia, ER of R foot>L; more lat patella L PT-OP-G Mobility & Gait Start: 07/26/22 17:51 Freq: Status: Active Protocol: Document 07/27/22 10:47 [facility] (Rec: 07/27/22 12:25 [facility] [id number]) OP Gait Assessment Comments Gait Comments dec push off L>R , dec stance time L PT-OP-J Posture/Palpation/Skin Start: 07/26/22 17:51 Freq: Status: Active Protocol: Document 09/30/22 09:06 [facility] (Rec: 09/30/22 08:18 [facility] [id number]) Posture Evaluation Raymond Postural Classification System Lumbar Protective Mechanism Left AP 2 Lumbar Protective Mechanism Right AP 3 Lumbar Protective Mechanism Left PA 2 Lumbar Protective Mechanism Right PA 3 PT-OP-K Range of Motion Start: 07/26/22 17:51 Freq: Status: Active Protocol: Document 07/27/22 10:47 [facility] (Rec: 07/27/22 12:25 [facility] [id number]) Knee Goniometric Range of Motion Knee Right Flexion Active (degrees) 130 Extension Active (degrees) 4 Comments ankle ROM B: knee to walk 4.25 in B Left Flexion Active (degrees) 125 Extension Active (degrees) 8 Comments pain under patella PT-OP-L Special Tests Start: 07/26/22 17:51 Freq: Status: Active Protocol: Document 07/27/22 10:47 [facility] (Rec: 07/27/22 12:25 [facility] [id number]) Special Tests Knee Special Tests Teodoro's Test Test Results positive B tightness Meyer's Compression Test Results neg L Apley's Compression Test Results neg L Thessaly Test 5 Degrees Test Results neg L Fredrick Test Test Results neg L Tripp Chondromalacia Test Results positive L Fito's Test Results neg L Straight Leg Raise Test Results 45 deg B Gian Test Results positive B for TFL and hip flexor and RF tightness Valgus- 25 Degrees Comments mild pain and laxity L Varus- 25 Degrees Test Results neg L Posterior Draw Test Results neg L PT-OP-M Strength Start: 07/26/22 17:51 Freq: Status: Active Protocol: Document 09/30/22 09:06 [facility] (Rec: 09/30/22 08:18 [facility] [id number]) Hip Strength Hip Manual Muscle Testing Right Flexion (L2) 5 Normal Extension (S1) 4+ Good+ Abduction 5 Normal Adduction 5 Normal External Rotation 5 Normal Internal Rotation 5 Normal Left Flexion (L2) 5 Normal Extension (S1) 4+ Good+ Abduction 5 Normal Adduction 5 Normal External Rotation 5 Normal Internal Rotation 5 Normal Knee Strength Knee Manual Muscle Testing Right Flexion (S2) 5 Normal Extension (L3) 5 Normal Left Flexion (S2) 5 Normal Extension (L3) 5 Normal Ankle/Foot Strength Ankle and Foot Manual Muscle Testing Right Dorsiflexion (L4) 5 Normal Plantarflexion (S1) 5 Normal Comments 20 heel raises B Left Dorsiflexion (L4) 5 Normal Plantarflexion (S1) 5 Normal Comments cues required for heel raises to keep knee straight-pain in knee-twinging PT-OP-Q Treatments Start: 07/26/22 17:51 Freq: Status: Active Protocol: Document 10/25/22 14:28 SP (Rec: 10/25/22 15:50 SP [id number]) Cardio Equipment Bicycle (Upright) Duration (Minutes) 3 Resistance 11 Seat Position 11 Other 1.42 miles, 74-76 RPM Treadmill Duration (Minutes) 7 Speed 2.7 Incline 0 Other cued increase L knee extension stride and heel toe strike, incr R arm swing Gym Equipment Shuttle Balance red Details wt shift, HTs lat/vert Comments 1. WBOS 8s 2. NBOS inside 4s 3. stagger shaky LEs, improves tall core/ glut fac, tall. Therapeutic Exercises Standing Exercises STS Standing Exercise Name warm up Resistance arms across chest Equipment Used 16 box Reps/Minutes x10 Comments good hip hinge form, reported good quad work out burn Single Leg Deadlift Standing Exercise Name review Side left Equipment Used dowel touch raised stool against wall Reps/Minutes 10 each LE Comments good form: hip hinge UEs target knee ht, good form knee stab w/behind toes Neuro Re-Education Treatment Balance Activities uneven obstacle course Details 6 hurdles, 5 oval cushions, 2 pods Equipment tandem stepping Reps/Duration 4 laps, CGA safety no LOB Comments little challenge w/ pods, cued posturing/core/glut fac and COG wt shift over stable LILY. bosu Surface B Equipment w/ red sport cord 1-2 (only / ) Reps/Duration 10 reps each Comments 1. step up to both LEs x10 B 2. single step up/bk dwn B 3. squats on black side (dome down)x10 mini 4. lat step up to both LEs x10 B 5. modified reverse lunge step back x10 *improved less shakiness mini squat with cues for glut fac, slower pacing, light contact if needed rail front. PT-OP-T Assessment and Plan Start: 07/26/22 17:51 Freq: Status: Active Protocol: Document 10/25/22 14:28 SP (Rec: 10/25/22 15:50 SP [id number]) Physical Therapy Assessment Goals balance Short Term Goal (STG) Pt will be able to do 30sec SLS on LLE w/o lat shear or signficiant instability to show ability to wt accept in LLE 09/30-requiers cues and mirror and notes some discomfort after STG Duration 10/31 Forge Heater Goal (LTG) Pt will report no difficulty w /knee on uneven surfaces. 09/30-hasn't tried LTG Duration 11/25 activities Short Term Goal (STG) Pt will be able to stand from a chair w/o pain in L knee STG Duration achieved 09/23 Forge Heater Goal (LTG) Pt will be able to walk at least 3 miles on uneven surfaces w/o inc knee pain or swelling. 09/30-can do 1-2 miles consistantly LTG Duration 11/25 strength Short Term Goal (STG) Pt will be indep w/HEP 09/23-limited d/t recent onset of hip and back pain STG Duration achieved-advancing as able Forge Heater Goal (LTG) pt will score at least 3/5 on LPM and 5/5 BLE strength w/o pain to show improved stability in order to inc pt ability to perform activity. 09/30-mostly achieved LTG Duration 11/25 stairs Short Term Goal (STG) Pt will be able to ascend stairs without any pain in knee. STG Duration achieved 09/23 Halfway Goal (LTG) Pt will be able to descend stairs without any pain in knee. 09/30-can most of the time but occ painful LTG Duration 11/25 Assessment Summary Assessment Pt improved increase able to perform good challenge step ups on bosu against resistance . Uneven tandem obstacle course easy. LEs shaky during shuttle balance, some improvement with cues tall core/ glut fac.Pt reports painfree, just stability challenge. Physical Therapy Plan Frequency and Duration Frequency of Treatment 1-2x/wk Duration of treatment (weeks) 8 Plan of Care Start Date 09/30/22 Plan of Care End Date 11/25/22 Therapeutic Interventions Therapeutic Interventions Aquatic Therapy,Balance Training,Gait Training,Home Exercise Program,Joint Mobilizations,Manual Therapy, Neuromuscular Re-education, Orthotic/Prosthetic Management ,Patient/Caregiver Education, Self-Care/Home Management,Soft Tissue Mobilization,Taping, Therapeutic Activities, Therapeutic Exercises Modalities Cold Pack/Ice Massage,Electric Stimulation,Hot Packs, Infrared Therapy,Ultrasound Next Visit Focus/Plan Next Note Type Treatment Note Next Visit Plan Continue BOSU sport cord, trial lateral and mini squat dome up if able. Focus on single LLE ex. Trial shuttle recovery gentle jumps. Floor double leg box hops.
--- NOTE | 2022-11-03 12:20 | PT.OTN ---
Current Diagnoses Pain in left knee (11/03/22) Muscle weakness (generalized) (11/03/22) Difficulty in walking, not elsewhere classified (11/03/22) Physical Therapy Treatment Note PT-OP-A Visit Information Start: 07/26/22 17:51 Freq: Status: Active Protocol: Document 11/03/22 07:30 [facility] (Rec: 11/03/22 12:20 [facility] [id number]) Out-Patient Physical Therapy Visit Information Visit Information Visit Type Treatment Note Visit Start Time 09:06 Visit Stop Time 09:45 Total Visit Minutes 39 Visit Number 09/30 Number of BRAKE SHOE REBUILDER Visits 0 PT-OP-B Current Condition Start: 07/26/22 17:51 Freq: Status: Active Protocol: Document 07/27/22 10:47 [facility] (Rec: 07/27/22 12:25 [facility] [id number]) Current Condition History of Current Condition Onset Date 30 years Current Complaints L knee pain History of Current Condition Pt reports knee pain is an old issue that is ongoing that has just gotten worse. It started 30 years ago from twisting it in snow shoes in [place] and banged it. About 1 year ago, was bending down to do soething and he had a sudden sharp pain in L knee and it swelled up and stiffened up. SInce then, it sometimes feels like he is hyperextending it when he is going down hill or steps down and hurts. Pain is under knee cap but stiffness is more lat. No Xrays or MRIs. If he straigthens it and engages quads, it hurts.Pt reports also back issues. 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 Typically he walks for exercise 2x/day. HIs knee limits him. Typically, he would do a total of a couple miles a day w/his [place] Hodge. He would like to be able to walk 3+ miles at a time. It gets to a point at about 2 miles then he starts to get pain and if he over does it - it starts swelling. Sometimes when going down curb , he get a little popping then it stiffens and swells. Last week he went hunting and that was difficult d/t having to walk on a lot of rocks and he says i paid for it. Pt wears custom orthotics d/t hammer toes and plantar fascitis B Prior Treatments and Tests none Treatment Goals Patient/Caregiver Goals Be able to walk longer distances, be able to walk w/o worry of hurting it, be able to do stairs and hills, be able to squat and get up/dwon from chair w/o pain. PT-OP-C Subjective Start: 07/26/22 17:51 Freq: Status: Active Protocol: Document 11/03/22 07:30 [facility] (Rec: 11/03/22 12:20 [facility] [id number]) OP-PT Subjective Patient Comments Patient Comments Pt reports during squats, he had some ant knee pain sharply then got really tight. He stretched out and rolled out and now still gets clicking thats uncomfortable hwne he bends his knee. Now more med pain. PT-OP-D Balance Start: 07/26/22 17:51 Freq: Status: Active Protocol: Document 09/30/22 09:06 [facility] (Rec: 09/30/22 08:18 [facility] [id number]) Balance Tests Single Limb Standing Single Limb- Right >30 sec Single Limb- Left >30 sec w/cues PT-OP-F Manual Assessment Start: 07/26/22 17:51 Freq: Status: Active Protocol: Document 07/27/22 10:47 [facility] (Rec: 07/27/22 12:25 [facility] [id number]) Manual Assessments Soft Tissue Assessment Soft Tissue Mobility Assessment med joint line tenderness, tightness of ITB, VL, VMO, HS, Calf Joint Mobility Assessment Joint Mobility Assessment IR of femur L; R ER; B ER of tibia, ER of R foot>L; more lat patella L PT-OP-G Mobility & Gait Start: 07/26/22 17:51 Freq: Status: Active Protocol: Document 07/27/22 10:47 [facility] (Rec: 07/27/22 12:25 [facility] [id number]) OP Gait Assessment Comments Gait Comments dec push off L>R , dec stance time L PT-OP-J Posture/Palpation/Skin Start: 07/26/22 17:51 Freq: Status: Active Protocol: Document 09/30/22 09:06 [facility] (Rec: 09/30/22 08:18 [facility] [id number]) Posture Evaluation Raymond Postural Classification System Lumbar Protective Mechanism Left AP 2 Lumbar Protective Mechanism Right AP 3 Lumbar Protective Mechanism Left PA 2 Lumbar Protective Mechanism Right PA 3 PT-OP-K Range of Motion Start: 07/26/22 17:51 Freq: Status: Active Protocol: Document 07/27/22 10:47 [facility] (Rec: 07/27/22 12:25 [facility] [id number]) Knee Goniometric Range of Motion Knee Right Flexion Active (degrees) 130 Extension Active (degrees) 4 Comments ankle ROM B: knee to walk 4.25 in B Left Flexion Active (degrees) 125 Extension Active (degrees) 8 Comments pain under patella PT-OP-L Special Tests Start: 07/26/22 17:51 Freq: Status: Active Protocol: Document 07/27/22 10:47 [facility] (Rec: 07/27/22 12:25 [facility] [id number]) Special Tests Knee Special Tests Teodoro's Test Test Results positive B tightness Meyer's Compression Test Results neg L Apley's Compression Test Results neg L Thessaly Test 5 Degrees Test Results neg L Fredrick Test Test Results neg L Tripp Chondromalacia Test Results positive L Fito's Test Results neg L Straight Leg Raise Test Results 45 deg B Gian Test Results positive B for TFL and hip flexor and RF tightness Valgus- 25 Degrees Comments mild pain and laxity L Varus- 25 Degrees Test Results neg L Posterior Draw Test Results neg L PT-OP-M Strength Start: 07/26/22 17:51 Freq: Status: Active Protocol: Document 09/30/22 09:06 [facility] (Rec: 09/30/22 08:18 [facility] [id number]) Hip Strength Hip Manual Muscle Testing Right Flexion (L2) 5 Normal Extension (S1) 4+ Good+ Abduction 5 Normal Adduction 5 Normal External Rotation 5 Normal Internal Rotation 5 Normal Left Flexion (L2) 5 Normal Extension (S1) 4+ Good+ Abduction 5 Normal Adduction 5 Normal External Rotation 5 Normal Internal Rotation 5 Normal Knee Strength Knee Manual Muscle Testing Right Flexion (S2) 5 Normal Extension (L3) 5 Normal Left Flexion (S2) 5 Normal Extension (L3) 5 Normal Ankle/Foot Strength Ankle and Foot Manual Muscle Testing Right Dorsiflexion (L4) 5 Normal Plantarflexion (S1) 5 Normal Comments 20 heel raises B Left Dorsiflexion (L4) 5 Normal Plantarflexion (S1) 5 Normal Comments cues required for heel raises to keep knee straight-pain in knee-twinging PT-OP-Q Treatments Start: 07/26/22 17:51 Freq: Status: Active Protocol: Document 11/03/22 07:30 [facility] (Rec: 11/03/22 12:20 [facility] [id number]) Manual Therapy Treatment Soft Tissue Mobilization quad Body Location L Mobilization Type Rolling Intensity/Depth Moderate Body Position Prone Comments w/knee flex patellar tendon Body Location L Mobilization Type Rolling,Strumming,Sustained Pressure Intensity/Depth Moderate L ITB Body Location along ITB & TFL Mobilization Type Rolling Intensity/Depth Moderate Body Position Hooklying Comments w/hip IR/er Joint Mobilizations tibfib Comments proximal distraction, AP & PA glides FM Tibfem Comments med tib glides, IR FM tib, AP tib and femur FM; PA tib FM Patella mobs Joint L Direction med/ inf/superior glides Grade III Body Position Supine PT-OP-T Assessment and Plan Start: 07/26/22 17:51 Freq: Status: Active Protocol: Document 11/03/22 07:30 [facility] (Rec: 11/03/22 12:20 [facility] [id number]) Physical Therapy Assessment Goals balance Short Term Goal (STG) Pt will be able to do 30sec SLS on LLE w/o lat shear or signficiant instability to show ability to wt accept in LLE 09/30-requiers cues and mirror and notes some discomfort after STG Duration 10/31 Mcc Goal (LTG) Pt will report no difficulty w /knee on uneven surfaces. 09/30-hasn't tried LTG Duration 2 activities Short Term Goal (STG) Pt will be able to stand from a chair w/o pain in L knee STG Duration achieved 09/23 Research Engineer Goal (LTG) Pt will be able to walk at least 3 miles on uneven surfaces w/o inc knee pain or swelling. 09/30-can do 1-2 miles consistantly LTG Duration 2 strength Short Term Goal (STG) Pt will be indep w/HEP 09/23-limited d/t recent onset of hip and back pain STG Duration achieved-advancing as able Mcc Goal (LTG) pt will score at least 3/5 on LPM and 5/5 BLE strength w/o pain to show improved stability in order to inc pt ability to perform activity. 09/30-mostly achieved LTG Duration 11/25 stairs Short Term Goal (STG) Pt will be able to ascend stairs without any pain in knee. STG Duration achieved 09/23 Mcc Goal (LTG) Pt will be able to descend stairs without any pain in knee. 09/30-can most of the time but occ painful LTG Duration 11/25 Assessment Summary Assessment Pt was unable to extend knee in supine and standing w/o pain and couldn't get full range and unable to get full range flex and had pain and clicking. After manual, pt had improved ROM in both directions w/less pain an no pain w/knee ext. No pain w/ squatting after manual and there was prior Physical Therapy Plan Frequency and Duration Frequency of Treatment 1-2x/wk Duration of treatment (weeks) 8 Plan of Care Start Date 09/30/22 Plan of Care End Date 11/25/22 Next Visit Focus/Plan Next Note Type Treatment Note Next Visit Plan Continue BOSU sport cord, trial lateral and mini squat dome up if able. Focus on single LLE ex. Trial shuttle recovery gentle jumps. Floor double leg box hops.
--- NOTE | 2022-11-10 09:02 | PT.OTN ---
Current Diagnoses Pain in left knee (11/10/22) Muscle weakness (generalized) (11/10/22) Difficulty in walking, not elsewhere classified (11/10/22) Physical Therapy Treatment Note PT-OP-A Visit Information Start: 07/26/22 17:51 Freq: Status: Active Protocol: Document 11/10/22 08:19 SP (Rec: 11/10/22 09:04 SP [id number]) Out-Patient Physical Therapy Visit Information Visit Information Visit Type Treatment Note Visit Start Time 08:19 Visit Stop Time 09:02 Total Visit Minutes 43 Visit Number 13/15 Number of SURVEY RESEARCH TEACHER Visits 1 PT-OP-B Current Condition Start: 07/26/22 17:51 Freq: Status: Active Protocol: Document 07/27/22 10:47 LR (Rec: 07/27/22 12:25 [facility] [id number]) Current Condition History of Current Condition Onset Date 30 years Current Complaints L knee pain History of Current Condition Pt reports knee pain is an old issue that is ongoing that has just gotten worse. It started 30 years ago from twisting it in snow shoes in [place] and banged it. About 1 year ago, was bending down to do soething and he had a sudden sharp pain in L knee and it swelled up and stiffened up. SInce then, it sometimes feels like he is hyperextending it when he is going down hill or steps down and hurts. Pain is under knee cap but stiffness is more lat. No Xrays or MRIs. If he straigthens it and engages quads, it hurts.Pt reports also back issues. 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 Typically he walks for exercise 2x/day. HIs knee limits him. Typically, he would do a total of a couple miles a day w/his [place] [employer]. He would like to be able to walk 3+ miles at a time. It gets to a point at about 2 miles then he starts to get pain and if he over does it - it starts swelling. Sometimes when going down curb , he get a little popping then it stiffens and swells. Last week he went hunting and that was difficult d/t having to walk on a lot of rocks and he says i paid for it. Pt wears custom orthotics d/t hammer toes and plantar fascitis B Prior Treatments and Tests none Treatment Goals Patient/Caregiver Goals Be able to walk longer distances, be able to walk w/o worry of hurting it, be able to do stairs and hills, be able to squat and get up/dwon from chair w/o pain. PT-OP-C Subjective Start: 07/26/22 17:51 Freq: Status: Active Protocol: Document 11/10/22 08:19 SP (Rec: 11/10/22 09:04 SP [id number]) OP-PT Subjective Patient Comments Patient Comments Pt reports L knee little better than after last tx but still having pain under superior and lateral patella, only able complete 7 squats before also feels rolling pain lateral L knee. PT-OP-D Balance Start: 07/26/22 17:51 Freq: Status: Active Protocol: Document 09/30/22 09:06 [facility] (Rec: 09/30/22 08:18 [facility] [id number]) Balance Tests Single Limb Standing Single Limb- Right >30 sec Single Limb- Left >30 sec w/cues PT-OP-F Manual Assessment Start: 07/26/22 17:51 Freq: Status: Active Protocol: Document 07/27/22 10:47 [facility] (Rec: 07/27/22 12:25 [facility] [id number]) Manual Assessments Soft Tissue Assessment Soft Tissue Mobility Assessment med joint line tenderness, tightness of ITB, VL, VMO, HS, Calf Joint Mobility Assessment Joint Mobility Assessment IR of femur L; R ER; B ER of tibia, ER of R foot>L; more lat patella L PT-OP-G Mobility & Gait Start: 07/26/22 17:51 Freq: Status: Active Protocol: Document 07/27/22 10:47 [facility] (Rec: 07/27/22 12:25 [facility] [id number]) OP Gait Assessment Comments Gait Comments dec push off L>R , dec stance time L PT-OP-J Posture/Palpation/Skin Start: 07/26/22 17:51 Freq: Status: Active Protocol: Document 09/30/22 09:06 [facility] (Rec: 09/30/22 08:18 [facility] [id number]) Posture Evaluation [facility] Postural Classification System Lumbar Protective Mechanism Left AP 2 Lumbar Protective Mechanism Right AP 3 Lumbar Protective Mechanism Left PA 2 Lumbar Protective Mechanism Right PA 3 PT-OP-K Range of Motion Start: 07/26/22 17:51 Freq: Status: Active Protocol: Document 07/27/22 10:47 [facility] (Rec: 07/27/22 12:25 [facility] [id number]) Knee Goniometric Range of Motion Knee Right Flexion Active (degrees) 130 Extension Active (degrees) 4 Comments ankle ROM B: knee to walk 4.25 in B Left Flexion Active (degrees) 125 Extension Active (degrees) 8 Comments pain under patella PT-OP-L Special Tests Start: 07/26/22 17:51 Freq: Status: Active Protocol: Document 07/27/22 10:47 [facility] (Rec: 07/27/22 12:25 [facility] [id number]) Special Tests Knee Special Tests Teodoro's Test Test Results positive B tightness Meyer's Compression Test Results neg L Apley's Compression Test Results neg L Thessaly Test 5 Degrees Test Results neg L Fredrick Test Test Results neg L Tripp Chondromalacia Test Results positive L Fito's Test Results neg L Straight Leg Raise Test Results 45 deg B Gian Test Results positive B for TFL and hip flexor and RF tightness Valgus- 25 Degrees Comments mild pain and laxity L Varus- 25 Degrees Test Results neg L Posterior Draw Test Results neg L PT-OP-M Strength Start: 07/26/22 17:51 Freq: Status: Active Protocol: Document 09/30/22 09:06 [facility] (Rec: 09/30/22 08:18 [facility] [id number]) Hip Strength Hip Manual Muscle Testing Right Flexion (L2) 5 Normal Extension (S1) 4+ Good+ Abduction 5 Normal Adduction 5 Normal External Rotation 5 Normal Internal Rotation 5 Normal Left Flexion (L2) 5 Normal Extension (S1) 4+ Good+ Abduction 5 Normal Adduction 5 Normal External Rotation 5 Normal Internal Rotation 5 Normal Knee Strength Knee Manual Muscle Testing Right Flexion (S2) 5 Normal Extension (L3) 5 Normal Left Flexion (S2) 5 Normal Extension (L3) 5 Normal Ankle/Foot Strength Ankle and Foot Manual Muscle Testing Right Dorsiflexion (L4) 5 Normal Plantarflexion (S1) 5 Normal Comments 20 heel raises B Left Dorsiflexion (L4) 5 Normal Plantarflexion (S1) 5 Normal Comments cues required for heel raises to keep knee straight-pain in knee-twinging PT-OP-Q Treatments Start: 07/26/22 17:51 Freq: Status: Active Protocol: Document 11/10/22 08:19 SP (Rec: 11/10/22 09:04 SP [id number]) Therapeutic Exercises Sidelying Exercises hip abd Sidelying Exercise Name added to [facility] Side left Resistance TB #2 loop at thighs Reps/Minutes x10 Comments good feedback painfree Sitting Exercises LAQ Sitting Exercise Name added to [facility] Side left Resistance TB #3 under R foot (supported on stool) and L ankle Equipment Used seated on table lower legs hanging off table Reps/Minutes 2x8 reps, 1-2 sec pause Comments good feedback mid quad muscular effort, painfree in knee Standing Exercises HS curl Standing Exercise Name added to [facility] Resistance Tb loop ft/ ankle Reps/Minutes x10 reps (wedge under heel, knees //) Comments cued kneed next to each other, decrease hip flex compensaiton, painfree Single Leg Deadlift Standing Exercise Name DC L knee pain 4 way hip Standing Exercise Name DC L knee pain Other Exercises quadruped hip abd Other Exercise Name added to HEP: firhydrant Side bilateral Resistance TB#1 loop Reps/Minutes x10 Comments good feedback hip abd fac, cued level pelvis no trunk rotation Manual Therapy Treatment Soft Tissue Mobilization quad Body Location L Mobilization Type Instrument Assisted,Rolling, Strumming Intensity/Depth Moderate Body Position Hooklying Comments w/knee ext and flex patellar tendon Body Location L Mobilization Type Rolling,Strumming,Sustained Pressure Intensity/Depth Moderate HS Body Location L HS and calf Mobilization Type Instrument Assisted,Rolling Intensity/Depth Moderate Body Position Prone Comments manual and sustained pressure with AP lateral calf L ITB Body Location along ITB & TFL Mobilization Type Rolling,Strumming Intensity/Depth Moderate Body Position Hooklying Comments w/hip IR/er Joint Mobilizations talocrual Joint L Direction A>P Grade II Body Position Supine tibfib Comments proximal distraction, AP & PA glides FM Tibfem Comments med tib glides, IR FM tib, AP tib and femur FM; PA tib FM Patella mobs Joint L Direction med/ inf/superior glides Grade III Body Position Supine PT-OP-T Assessment and Plan Start: 07/26/22 17:51 Freq: Status: Active Protocol: Document 11/10/22 08:19 SP (Rec: 11/10/22 09:04 SP [id number]) Physical Therapy Assessment Goals balance Short Term Goal (STG) Pt will be able to do 30sec SLS on LLE w/o lat shear or signficiant instability to show ability to wt accept in LLE 09/30-requiers cues and mirror and notes some discomfort after STG Duration 10/31 [facility] Goal (LTG) Pt will report no difficulty w /knee on uneven surfaces. 09/30-hasn't tried LTG Duration 11/25 activities Short Term Goal (STG) Pt will be able to stand from a chair w/o pain in L knee STG Duration achieved 09/23 Diesel Lube Tech Goal (LTG) Pt will be able to walk at least 3 miles on uneven surfaces w/o inc knee pain or swelling. 09/30-can do 1-2 miles consistantly LTG Duration 11/25 strength Short Term Goal (STG) Pt will be indep w/HEP 09/23-limited d/t recent onset of hip and back pain STG Duration achieved-advancing as able [facility] Goal (LTG) pt will score at least 3/5 on LPM and 5/5 BLE strength w/o pain to show improved stability in order to inc pt ability to perform activity. 09/30-mostly achieved LTG Duration 11/25 stairs Short Term Goal (STG) Pt will be able to ascend stairs without any pain in knee. STG Duration achieved 09/23 Diesel Lube Tech Goal (LTG) Pt will be able to descend stairs without any pain in knee. 09/30-can most of the time but occ painful LTG Duration 11/25 Assessment Summary Assessment Pt sensitive response to moderate manual quad superior patella, sensitive to pressure over patellar tendon, good feedback response to pin lateral calf and FM ankle pumps and understands how to self apply in quadruped from previous instruction. Adjusted HEP due to lateral knee pain SLS, good feedback response to quadruped resisted hip abd, seated resisted LAQ, standing HS curl tolerant range, cues as needed for proper set up/ alignment. Pt stated soreness but no pain end tx. Physical Therapy Plan Frequency and Duration Frequency of Treatment 1-2x/wk Duration of treatment (weeks) 8 Plan of Care Start Date 09/30/22 Plan of Care End Date 11/25/22 Therapeutic Interventions Therapeutic Interventions Aquatic Therapy,Balance Training,Gait Training,Home Exercise Program,Joint Mobilizations,Manual Therapy, Neuromuscular Re-education, Orthotic/Prosthetic Management ,Patient/Caregiver Education, Self-Care/Home Management,Soft Tissue Mobilization,Taping, Therapeutic Activities, Therapeutic Exercises Modalities Cold Pack/Ice Massage,Electric Stimulation,Hot Packs, Infrared Therapy,Ultrasound Next Visit Focus/Plan Next Note Type Treatment Note Next Visit Plan Only 2 more visit approved, [facility] insurance. Recheck HEP. Continue BOSU sport cord, trial lateral and mini squat dome up if able. Focus on single LLE ex. Trial shuttle recovery gentle jumps. Floor double leg box hops.
--- NOTE | 2022-11-17 09:00 | PT.OTN ---
Addendum entered and electronically signed by Georgia Lopez PTA 11/17/22 16:40: Pt lacking 10 deg extension during resisted LAQ due to limited range and intolerated pain sub patella. Original Note: Current Diagnoses Pain in left knee (11/17/22) Muscle weakness (generalized) (11/17/22) Difficulty in walking, not elsewhere classified (11/17/22) Physical Therapy Treatment Note PT-OP-A Visit Information Start: 07/26/22 17:51 Freq: Status: Active Protocol: Document 11/17/22 08:16 SP (Rec: 11/17/22 09:06 SP [id number]) Out-Patient Physical Therapy Visit Information Visit Information Visit Type Treatment Note Visit Note POC expires 11/25, next appt with PT and authorization expires 11/26, only 1 visit left authorized. Visit Start Time 08:16 Visit Stop Time 09:00 Total Visit Minutes 44 Visit Number 14/15 Number of DATA MANAGEMENT ENGINEER Visits 2 PT-OP-B Current Condition Start: 07/26/22 17:51 Freq: Status: Active Protocol: Document 07/27/22 10:47 [facility] (Rec: 07/27/22 12:25 [facility] [id number]) Current Condition History of Current Condition Onset Date 30 years Current Complaints L knee pain History of Current Condition Pt reports knee pain is an old issue that is ongoing that has just gotten worse. It started 30 years ago from twisting it in snow shoes in [place] and banged it. About 1 year ago, was bending down to do soething and he had a sudden sharp pain in L knee and it swelled up and stiffened up. SInce then, it sometimes feels like he is hyperextending it when he is going down hill or steps down and hurts. Pain is under knee cap but stiffness is more lat. No Xrays or MRIs. If he straigthens it and engages quads, it hurts.Pt reports also back issues. 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 Typically he walks for exercise 2x/day. HIs knee limits him. Typically, he would do a total of a couple miles a day w/his [place] [employer]. He would like to be able to walk 3+ miles at a time. It gets to a point at about 2 miles then he starts to get pain and if he over does it - it starts swelling. Sometimes when going down curb , he get a little popping then it stiffens and swells. Last week he went hunting and that was difficult d/t having to walk on a lot of rocks and he says i paid for it. Pt wears custom orthotics d/t hammer toes and plantar fascitis B Prior Treatments and Tests none Treatment Goals Patient/Caregiver Goals Be able to walk longer distances, be able to walk w/o worry of hurting it, be able to do stairs and hills, be able to squat and get up/dwon from chair w/o pain. PT-OP-C Subjective Start: 07/26/22 17:51 Freq: Status: Active Protocol: Document 11/17/22 08:16 SP (Rec: 11/17/22 09:06 SP [id number]) OP-PT Subjective Patient Comments Patient Comments Pt reports not seeing significant improvement in end range extension of L knee during all activities and pain sub patella. He states compliant with all HEP ex and stretches can tolerate. He reports will call his [facility] physician and see if can get further imaging as to why L knee hurting and limits most activity and unable to straighten knee without intolerated pain so has managed with L knee in slight flexion which doesn't allow him to perform in many previous ther ex . PT-OP-D Balance Start: 07/26/22 17:51 Freq: Status: Active Protocol: Document 09/30/22 09:06 [facility] (Rec: 09/30/22 08:18 [facility] [id number]) Balance Tests Single Limb Standing Single Limb- Right >30 sec Single Limb- Left >30 sec w/cues PT-OP-F Manual Assessment Start: 07/26/22 17:51 Freq: Status: Active Protocol: Document 07/27/22 10:47 [facility] (Rec: 07/27/22 12:25 [facility] [id number]) Manual Assessments Soft Tissue Assessment Soft Tissue Mobility Assessment med joint line tenderness, tightness of ITB, VL, VMO, HS, Calf Joint Mobility Assessment Joint Mobility Assessment IR of femur L; R ER; B ER of tibia, ER of R foot>L; more lat patella L PT-OP-G Mobility & Gait Start: 07/26/22 17:51 Freq: Status: Active Protocol: Document 07/27/22 10:47 [facility] (Rec: 07/27/22 12:25 [facility] [id number]) OP Gait Assessment Comments Gait Comments dec push off L>R , dec stance time L PT-OP-J Posture/Palpation/Skin Start: 07/26/22 17:51 Freq: Status: Active Protocol: Document 09/30/22 09:06 [facility] (Rec: 09/30/22 08:18 [facility] [id number]) Posture Evaluation [facility] Postural Classification System Lumbar Protective Mechanism Left AP 2 Lumbar Protective Mechanism Right AP 3 Lumbar Protective Mechanism Left PA 2 Lumbar Protective Mechanism Right PA 3 PT-OP-K Range of Motion Start: 07/26/22 17:51 Freq: Status: Active Protocol: Document 07/27/22 10:47 [facility] (Rec: 07/27/22 12:25 [facility] [id number]) Knee Goniometric Range of Motion Knee Right Flexion Active (degrees) 130 Extension Active (degrees) 4 Comments ankle ROM B: knee to walk 4.25 in B Left Flexion Active (degrees) 125 Extension Active (degrees) 8 Comments pain under patella PT-OP-L Special Tests Start: 07/26/22 17:51 Freq: Status: Active Protocol: Document 07/27/22 10:47 [facility] (Rec: 07/27/22 12:25 [facility] [id number]) Special Tests Knee Special Tests Teodoro's Test Test Results positive B tightness Meyer's Compression Test Results neg L Apley's Compression Test Results neg L Thessaly Test 5 Degrees Test Results neg L Fredrick Test Test Results neg L Tripp Chondromalacia Test Results positive L Fito's Test Results neg L Straight Leg Raise Test Results 45 deg B Gian Test Results positive B for TFL and hip flexor and RF tightness Valgus- 25 Degrees Comments mild pain and laxity L Varus- 25 Degrees Test Results neg L Posterior Draw Test Results neg L PT-OP-M Strength Start: 07/26/22 17:51 Freq: Status: Active Protocol: Document 09/30/22 09:06 [facility] (Rec: 09/30/22 08:18 [facility] [id number]) Hip Strength Hip Manual Muscle Testing Right Flexion (L2) 5 Normal Extension (S1) 4+ Good+ Abduction 5 Normal Adduction 5 Normal External Rotation 5 Normal Internal Rotation 5 Normal Left Flexion (L2) 5 Normal Extension (S1) 4+ Good+ Abduction 5 Normal Adduction 5 Normal External Rotation 5 Normal Internal Rotation 5 Normal Knee Strength Knee Manual Muscle Testing Right Flexion (S2) 5 Normal Extension (L3) 5 Normal Left Flexion (S2) 5 Normal Extension (L3) 5 Normal Ankle/Foot Strength Ankle and Foot Manual Muscle Testing Right Dorsiflexion (L4) 5 Normal Plantarflexion (S1) 5 Normal Comments 20 heel raises B Left Dorsiflexion (L4) 5 Normal Plantarflexion (S1) 5 Normal Comments cues required for heel raises to keep knee straight-pain in knee-twinging PT-OP-Q Treatments Start: 07/26/22 17:51 Freq: Status: Active Protocol: Document 11/17/22 08:16 SP (Rec: 11/17/22 09:06 SP [id number]) Therapeutic Exercises Sitting Exercises LAQ Sitting Exercise Name reviewed HEP Side left Resistance TB #3 under R foot (supported on stool) and L ankle Equipment Used seated on table lower legs hanging off table Reps/Minutes 2x8 reps, 1-2 sec pause Comments good feedback mid quad muscular effort, painfree in knee Standing Exercises BOSU step up Standing Exercise Name trialed WB acceptance into tolerated ext Side left Equipment Used bosu Dome side, use B HRs Reps/Minutes x5 reps- stopped due to not tolerated inside L knee/sub patella Comments cued ankle stability positioning during asc/back step with alignment HS curl Standing Exercise Name added to HEP Resistance Tb loop ft/ ankle Reps/Minutes x10 reps Comments feedback low discomfort. TKE Side left Resistance TB #4 loop Reps/Minutes 3 reps Comments trial pain ext MWM Manual Therapy Treatment Soft Tissue Mobilization quad Body Location L Mobilization Type Cross-Friction,Rolling, Strumming Intensity/Depth Moderate Body Position Hooklying Comments w/knee ext and flex and quad set patellar tendon Body Location L Mobilization Type Cross-Friction,Rolling, Sustained Pressure,Other Intensity/Depth Moderate Body Position Supine HS Body Location L HS and calf Mobilization Type Cross-Friction,Rolling, Sustained Pressure,Other Intensity/Depth Moderate Body Position Prone Comments manual and sustained pressure over lateral calf w/ AP and knee flexion/extension Joint Mobilizations Tibfem Joint L Grade II Reps/Duration 10 min total time Comments Seated: AP tib and femur w/ strap posterior prox calf FM seated on table/foot on 45cm tball on floor, strap: MWM knee flex/ext start position small range- no pain. supine: femor PA glide prone: tibia PA with inferior distraction use strap Patella mobs Joint L Direction med/inf/superior glides/ lateral tipping Grade II Body Position Supine Comments manual ROM, con/eccentric MWM druing quad set. No significant relief. PT-OP-T Assessment and Plan Start: 07/26/22 17:51 Freq: Status: Active Protocol: Document 11/17/22 08:16 SP (Rec: 11/17/22 09:06 SP [id number]) Physical Therapy Assessment Goals balance Short Term Goal (STG) Pt will be able to do 30sec SLS on LLE w/o lat shear or signficiant instability to show ability to wt accept in LLE 09/30-requiers cues and mirror and notes some discomfort after STG Duration 10/31 Service Center Representative Goal (LTG) Pt will report no difficulty w /knee on uneven surfaces. 09/30-hasn't tried 11/17/22: hasn't attempted dueto L knee pain. LTG Duration 11/25 activities Short Term Goal (STG) Pt will be able to stand from a chair w/o pain in L knee STG Duration achieved 09/23 Senior Care Goal (LTG) Pt will be able to walk at least 3 miles on uneven surfaces w/o inc knee pain or swelling. 09/30-can do 1-2 miles consistantly LTG Duration 11/25 strength Short Term Goal (STG) Pt will be indep w/HEP 09/23-limited d/t recent onset of hip and back pain 11/17/22: limited d/t recent past 2 weeks L knee pain sub patella. STG Duration achieved-advancing as able Senior Care Goal (LTG) pt will score at least 3/5 on LPM and 5/5 BLE strength w/o pain to show improved stability in order to inc pt ability to perform activity. 09/30-mostly achieved LTG Duration 11/25 stairs Short Term Goal (STG) Pt will be able to ascend stairs without any pain in knee. 11/17/22: degressed, having pain inside knee and sub patella at this time. STG Duration achieved 09/23 (11/17/22 decreased tolerance asc/desc stair mgt) Senior Care Goal (LTG) Pt will be able to descend stairs without any pain in knee. 09/30-can most of the time but occ painful 11/17/22: has pain sub patella asc/descending and unableto fully extend L knee end range. LTG Duration 11/25 slow progression 11/17/22 Assessment Summary Assessment Pt continues to report L knee pain inside tibialfemoral jt and sub patella with no significant improvement post manual, HS ther ex to inhibit quad and trying to be compliant with stretching and therex can tolerate at this point. DATA MANAGEMENT ENGINEER recommended contacting physician for further imaging follow up and if possible to request further PT appts if needed, currently referral visits seen and last appt scheduled outside of allowed dates identified. DATA MANAGEMENT ENGINEER asked to reschedule next appt sooner with PT to allow update POC if able before authorization expires. Physical Therapy Plan Frequency and Duration Frequency of Treatment 1-2x/wk Duration of treatment (weeks) 8 Plan of Care Start Date 09/30/22 Plan of Care End Date 11/25/22 Therapeutic Interventions Therapeutic Interventions Aquatic Therapy,Balance Training,Gait Training,Home Exercise Program,Joint Mobilizations,Manual Therapy, Neuromuscular Re-education, Orthotic/Prosthetic Management ,Patient/Caregiver Education, Self-Care/Home Management,Soft Tissue Mobilization,Taping, Therapeutic Activities, Therapeutic Exercises Modalities Cold Pack/Ice Massage,Electric Stimulation,Hot Packs, Infrared Therapy,Ultrasound Other Referrals/Consults Referrals/Consults Recommended [facility]. Next Visit Focus/Plan Next Note Type Progress Note Next Visit Plan Only 1 more visit with PT Kim 12/01 outside approved dates 11/26, [facility] insurance. POC: Recheck HEP. Continue if able/tolerated BOSU sport cord , trial lateral and mini squat dome up if able. Focus on single LLE ex. Trial shuttle recovery gentle jumps. Floor double leg box hops.
--- NOTE | 2022-11-24 18:17 | PT.OTN ---
Current Diagnoses Pain in left knee (11/24/22) Muscle weakness (generalized) (11/24/22) Difficulty in walking, not elsewhere classified (11/24/22) Physical Therapy Treatment Note PT-OP-A Visit Information Start: 07/26/22 17:51 Freq: Status: Active Protocol: Document 11/24/22 16:09 [facility] (Rec: 11/24/22 18:17 [facility] [id number]) Out-Patient Physical Therapy Visit Information Visit Information Visit Type Progress Note Visit Start Time 16:06 Visit Stop Time 16:46 Total Visit Minutes 40 Visit Number 15/15 Number of HOT DIPPER Visits 0 PT-OP-B Current Condition Start: 07/26/22 17:51 Freq: Status: Active Protocol: Document 07/27/22 10:47 [facility] (Rec: 07/27/22 12:25 [facility] [id number]) Current Condition History of Current Condition Onset Date 30 years Current Complaints L knee pain History of Current Condition Pt reports knee pain is an old issue that is ongoing that has just gotten worse. It started 30 years ago from twisting it in snow shoes in [place] and banged it. About 1 year ago, was bending down to do soething and he had a sudden sharp pain in L knee and it swelled up and stiffened up. SInce then, it sometimes feels like he is hyperextending it when he is going down hill or steps down and hurts. Pain is under knee cap but stiffness is more lat. No Xrays or MRIs. If he straigthens it and engages quads, it hurts.Pt reports also back issues. 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 Typically he walks for exercise 2x/day. HIs knee limits him. Typically, he would do a total of a couple miles a day w/his [place] Hodge. He would like to be able to walk 3+ miles at a time. It gets to a point at about 2 miles then he starts to get pain and if he over does it - it starts swelling. Sometimes when going down curb , he get a little popping then it stiffens and swells. Last week he went hunting and that was difficult d/t having to walk on a lot of rocks and he says i paid for it. Pt wears custom orthotics d/t hammer toes and plantar fascitis B Prior Treatments and Tests none Treatment Goals Patient/Caregiver Goals Be able to walk longer distances, be able to walk w/o worry of hurting it, be able to do stairs and hills, be able to squat and get up/dwon from chair w/o pain. PT-OP-C Subjective Start: 07/26/22 17:51 Freq: Status: Active Protocol: Document 11/24/22 16:09 [facility] (Rec: 11/24/22 18:17 [facility] [id number]) OP-PT Subjective Patient Comments Patient Comments pt feels like every time he gets a little better, he goes backwards. He often has to roll out after doing exercises . PT-OP-D Balance Start: 07/26/22 17:51 Freq: Status: Active Protocol: Document 09/30/22 09:06 [facility] (Rec: 09/30/22 08:18 [facility] [id number]) Balance Tests Single Limb Standing Single Limb- Right >30 sec Single Limb- Left >30 sec w/cues PT-OP-F Manual Assessment Start: 07/26/22 17:51 Freq: Status: Active Protocol: Document 07/27/22 10:47 [facility] (Rec: 07/27/22 12:25 [facility] [id number]) Manual Assessments Soft Tissue Assessment Soft Tissue Mobility Assessment med joint line tenderness, tightness of ITB, VL, VMO, HS, Calf Joint Mobility Assessment Joint Mobility Assessment IR of femur L; R ER; B ER of tibia, ER of R foot>L; more lat patella L PT-OP-G Mobility & Gait Start: 07/26/22 17:51 Freq: Status: Active Protocol: Document 07/27/22 10:47 [facility] (Rec: 07/27/22 12:25 [facility] [id number]) OP Gait Assessment Comments Gait Comments dec push off L>R , dec stance time L PT-OP-J Posture/Palpation/Skin Start: 07/26/22 17:51 Freq: Status: Active Protocol: Document 11/24/22 16:09 [facility] (Rec: 11/24/22 18:17 [facility] [id number]) Posture Evaluation [facility] Postural Classification System Lumbar Protective Mechanism Left AP 2 Lumbar Protective Mechanism Right AP 2 Lumbar Protective Mechanism Left PA 5 Lumbar Protective Mechanism Right PA 3 PT-OP-K Range of Motion Start: 10/10/22 17:51 Freq: Status: Active Protocol: Document 07/27/22 10:47 [facility] (Rec: 07/27/22 12:25 [facility] [id number]) Knee Goniometric Range of Motion Knee Right Flexion Active (degrees) 130 Extension Active (degrees) 4 Comments ankle ROM B: knee to walk 4.25 in B Left Flexion Active (degrees) 125 Extension Active (degrees) 8 Comments pain under patella PT-OP-L Special Tests Start: 07/26/22 17:51 Freq: Status: Active Protocol: Document 07/27/22 10:47 [facility] (Rec: 07/27/22 12:25 [facility] [id number]) Special Tests Knee Special Tests Teodoro's Test Test Results positive B tightness Meyer's Compression Test Results neg L Apley's Compression Test Results neg L Thessaly Test 5 Degrees Test Results neg L Fredrick Test Test Results neg L Tripp Chondromalacia Test Results positive L Fito's Test Results neg L Straight Leg Raise Test Results 45 deg B Gian Test Results positive B for TFL and hip flexor and RF tightness Valgus- 25 Degrees Comments mild pain and laxity L Varus- 25 Degrees Test Results neg L Posterior Draw Test Results neg L PT-OP-M Strength Start: 07/26/22 17:51 Freq: Status: Active Protocol: Document 11/24/22 16:09 [facility] (Rec: 11/24/22 18:17 [facility] [id number]) Hip Strength Hip Manual Muscle Testing Right Flexion (L2) 5 Normal Extension (S1) 5 Normal Abduction 5 Normal Adduction 5 Normal External Rotation 5 Normal Internal Rotation 5 Normal Left Flexion (L2) 5 Normal Extension (S1) 5 Normal Abduction 5 Normal Adduction 5 Normal External Rotation 5 Normal Internal Rotation 5 Normal Knee Strength Knee Manual Muscle Testing Right Flexion (S2) 5 Normal Extension (L3) 5 Normal Left Flexion (S2) 5 Normal Extension (L3) 5 Normal Ankle/Foot Strength Ankle and Foot Manual Muscle Testing Right Dorsiflexion (L4) 5 Normal Plantarflexion (S1) 5 Normal Comments 20 heel raises B Left Dorsiflexion (L4) 5 Normal Plantarflexion (S1) 5 Normal PT-OP-Q Treatments Start: 07/26/22 17:51 Freq: Status: Active Protocol: Document 11/24/22 16:09 [facility] (Rec: 11/24/22 18:17 [facility] [id number]) Cardio Equipment Bicycle (Upright) Duration (Minutes) 6 Resistance 11 Seat Position 11 Therapeutic Exercises Supine Exercises Quad set, SLR Supine Exercise Name quad set-edu to use towel prn Standing Exercises Mini squat Standing Exercise Name sit to stands Side bilateral Reps/Minutes 10 Manual Therapy Treatment Soft Tissue Mobilization patellar tendon Body Location L Mobilization Type Cross-Friction,Rolling, Sustained Pressure,Other Intensity/Depth Moderate Body Position Supine Joint Mobilizations tibfib Comments proximal distraction, AP FM Tibfem Comments med tib glides, AP femur FM; PA tib FM Patella mobs Joint L Direction sup PT-OP-T Assessment and Plan Start: 07/26/22 17:51 Freq: Status: Active Protocol: Document 11/24/22 16:09 [facility] (Rec: 11/24/22 18:17 [facility] [id number]) Physical Therapy Assessment Goals balance Short Term Goal (STG) Pt will be able to do 30sec SLS on LLE w/o lat shear or signficiant instability to show ability to wt accept in LLE 09/30-requiers cues and mirror and notes some discomfort after STG Duration achieved Director Data Management Goal (LTG) Pt will report no difficulty w /knee on uneven surfaces. 09/30-hasn't tried 11/17/22: hasn't attempted dueto L knee pain. 11/24-pt idd a hike in the snow and did well but has only done that once LTG Duration 4/3 activities Short Term Goal (STG) Pt will be able to stand from a chair w/o pain in L knee STG Duration achieved 09/23 Assisted Goal (LTG) Pt will be able to walk at least 3 miles on uneven surfaces w/o inc knee pain or swelling. 09/30-can do 1-2 miles consistantly 11/24-does one mile 2x/day but does have pain LTG Duration 4/3 strength Short Term Goal (STG) Pt will be indep w/HEP 09/23-limited d/t recent onset of hip and back pain 11/17/22: limited d/t recent past 2 weeks L knee pain sub patella. STG Duration achieved-advancing as able Director Data Management Goal (LTG) pt will score at least 3/5 on LPM and 5/5 BLE strength w/o pain to show improved stability in order to inc pt ability to perform activity. 09/30-mostly achieved 11/24-MMT achieved; LPM AP limited LTG Duration 4/3 stairs Short Term Goal (STG) Pt will be able to ascend stairs without any pain in knee. 11/17/22: degressed, having pain inside knee and sub patella at this time. STG Duration achieved 12 (11/17/22 decreased tolerance asc/desc stair mgt) Assisted Goal (LTG) Pt will be able to descend stairs without any pain in knee. 09/30-can most of the time but occ painful 11/17/22: has pain sub patella asc/descending and unableto fully extend L knee end range. LTG Duration 4/3 Assessment Summary Assessment Pt has had recent flare up to his knee recently. He feels like his stiffness it overall better and intially was doing better w/ant L knee pain, but has had multiple regressions during this course of PT. He has great strength and can achieve full ext w/manual treatment during sessions, but it is not lasting btwn sessions. Balance is also much improvd.At this time, pt may benefit from further imaging ( MRI) and seeing academic guidance specialist. Hep was adjusted to just what is mentioned above. Will keep chart open until pt sees MD and plan is made Physical Therapy Plan Frequency and Duration Frequency of Treatment as needed Duration of treatment (weeks) 8 Plan of Care Start Date 11/24/22 Plan of Care End Date 01/17/23 Therapeutic Interventions Therapeutic Interventions Aquatic Therapy,Balance Training,Gait Training,Home Exercise Program,Joint Mobilizations,Manual Therapy, Neuromuscular Re-education, Orthotic/Prosthetic Management ,Patient/Caregiver Education, Self-Care/Home Management,Soft Tissue Mobilization,Taping, Therapeutic Activities, Therapeutic Exercises Modalities Cold Pack/Ice Massage,Electric Stimulation,Hot Packs, Infrared Therapy,Ultrasound Next Visit Focus/Plan Next Note Type Treatment Note Next Visit Plan pt to go to
--- NOTE | 2022-11-24 18:17 | PT.OPPOC ---
Physical, Occupational & Speech Therapy At [facility] Current Diagnoses Pain in left knee (11/24/22) Muscle weakness (generalized) (11/24/22) Difficulty in walking, not elsewhere classified (11/24/22) Visit Care Team Role Provider Type Other Providers Specialty: Address: Phone: Fax: Email: Salvador Costello DO Family Provider Physician Primary Care Provider Specialty: Family Practice Address: [address] [place] [address], [id number] Email: GOLD Saunders Attending Provider Non-Staff Referring Provider Specialty: Nursing [facility], [place], [address] Email: Plan Of Care PT-OP-T Assessment and Plan Start: 07/26/22 17:51 Freq: Status: Active Protocol: Document 11/24/22 16:09 [facility] (Rec: 11/24/22 18:17 [facility] [id number]) Physical Therapy Assessment Goals balance Short Term Goal (STG) Pt will be able to do 30sec SLS on LLE w/o lat shear or signficiant instability to show ability to wt accept in LLE 09/30-requiers cues and mirror and notes some discomfort after STG Duration achieved Horticultural Specialty Grower Goal (LTG) Pt will report no difficulty w /knee on uneven surfaces. 09/30-hasn't tried 11/17/22: hasn't attempted dueto L knee pain. 11/24-pt idd a hike in the snow and did well but has only done that once LTG Duration 4/3 activities Short Term Goal (STG) Pt will be able to stand from a chair w/o pain in L knee STG Duration achieved 09/23 Horticultural Specialty Grower Goal (LTG) Pt will be able to walk at least 3 miles on uneven surfaces w/o inc knee pain or swelling. 09/30-can do 1-2 miles consistantly 11/24-does one mile 2x/day but does have pain LTG Duration 4/3 strength Short Term Goal (STG) Pt will be indep w/HEP 12/8-limited d/t recent onset of hip and back pain 11/17/22: limited d/t recent past 2 weeks L knee pain sub patella. STG Duration achieved-advancing as able Horticultural Specialty Grower Goal (LTG) pt will score at least 3/5 on LPM and 5/5 BLE strength w/o pain to show improved stability in order to inc pt ability to perform activity. 09/30-mostly achieved 11/24-MMT achieved; LPM AP limited LTG Duration 4/3 stairs Short Term Goal (STG) Pt will be able to ascend stairs without any pain in knee. 11/17/22: degressed, having pain inside knee and sub patella at this time. STG Duration achieved 09/23 (11/17/22 decreased tolerance asc/desc stair mgt) Horticultural Specialty Grower Goal (LTG) Pt will be able to descend stairs without any pain in knee. 09/30-can most of the time but occ painful 11/17/22: has pain sub patella asc/descending and unableto fully extend L knee end range. LTG Duration 4/3 Assessment Summary Assessment Pt has had recent flare up to his knee recently. He feels like his stiffness it overall better and intially was doing better w/ant L knee pain, but has had multiple regressions during this course of PT. He has great strength and can achieve full ext w/manual treatment during sessions, but it is not lasting btwn sessions. Balance is also much improvd.At this time, pt may benefit from further imaging ( MRI) and seeing water resource specialist. Hep was adjusted to just what is mentioned above. Will keep chart open until pt sees MD and plan is made Physical Therapy Plan Frequency and Duration Frequency of Treatment as needed Duration of treatment (weeks) 8 Plan of Care Start Date 11/24/22 Plan of Care End Date 01/17/23 Therapeutic Interventions Therapeutic Interventions Aquatic Therapy,Balance Training,Gait Training,Home Exercise Program,Joint Mobilizations,Manual Therapy, Neuromuscular Re-education, Orthotic/Prosthetic Management ,Patient/Caregiver Education, Self-Care/Home Management,Soft Tissue Mobilization,Taping, Therapeutic Activities, Therapeutic Exercises Modalities Cold Pack/Ice Massage,Electric Stimulation,Hot Packs, Infrared Therapy,Ultrasound Next Visit Focus/Plan Next Note Type Treatment Note Next Visit Plan pt to go to [place] Plan of Care Dates Plan of Care Start Date 11/24/22 Plan of Care End Date 01/17/23 Electronically Signed by: Kim Guzman, PT 11/24/22 2516 If you are in agreement with this Plan of Care, please return a signed and dated copy. I have reviewed this Plan of Care and certify that the skilled therapy services above are required to meet the patient?s needs. Physician Signature Date Printed Name and Credentials Clinical Instructor Signature Printed Name and Credentials
--- NOTE | 2023-01-24 11:03 | PT.OPDS ---
Current Diagnoses Pain in left knee (11/24/22) Muscle weakness (generalized) (11/24/22) Difficulty in walking, not elsewhere classified (11/24/22) Visit Care Team Role Provider Type Other Providers Specialty: Address: Phone: Fax: Email: Salvador Costello DO Family Provider Physician Primary Care Provider Specialty: Family Practice Address: [address] [place] [address], [id number] Email: GOLD Saunders Attending Provider Non-Staff Referring Provider Specialty: Nursing Address: [address] [place], [place] [address] [place], [address] Email: Visit Number Visit Number Discharge Summary PT-OP-B Current Condition Start: 07/26/22 17:51 Freq: Status: Active Protocol: Document 07/27/22 10:47 [facility] (Rec: 07/27/22 12:25 [facility] [id number]) Current Condition History of Current Condition Onset Date 30 years Current Complaints L knee pain History of Current Condition Pt reports knee pain is an old issue that is ongoing that has just gotten worse. It started 30 years ago from twisting it in snow shoes in [place] and banged it. About 1 year ago, was bending down to do soething and he had a sudden sharp pain in L knee and it swelled up and stiffened up. SInce then, it sometimes feels like he is hyperextending it when he is going down hill or steps down and hurts. Pain is under knee cap but stiffness is more lat. No Xrays or MRIs. If he straigthens it and engages quads, it hurts.Pt reports also back issues. 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 Typically he walks for exercise 2x/day. HIs knee limits him. Typically, he would do a total of a couple miles a day w/his [place]. He would like to be able to walk 3+ miles at a time. It gets to a point at about 2 miles then he starts to get pain and if he over does it - it starts swelling. Sometimes when going down curb , he get a little popping then it stiffens and swells. Last week he went hunting and that was difficult d/t having to walk on a lot of rocks and he says i paid for it. Pt wears custom orthotics d/t hammer toes and plantar fascitis B Prior Treatments and Tests none Treatment Goals Patient/Caregiver Goals Be able to walk longer distances, be able to walk w/o worry of hurting it, be able to do stairs and hills, be able to squat and get up/dwon from chair w/o pain. PT-OP-C Subjective Start: 07/26/22 17:51 Freq: Status: Active Protocol: Document 11/24/22 16:09 [facility] (Rec: 11/24/22 18:17 [facility] [id number]) OP-PT Subjective Patient Comments Patient Comments pt feels like every time he gets a little better, he goes backwards. He often has to roll out after doing exercises . PT-OP-D Balance Start: 07/26/22 17:51 Freq: Status: Active Protocol: Document 09/30/22 09:06 [facility] (Rec: 09/30/22 08:18 [facility] [id number]) Balance Tests Single Limb Standing Single Limb- Right >30 sec Single Limb- Left >30 sec w/cues PT-OP-F Manual Assessment Start: 07/26/22 17:51 Freq: Status: Active Protocol: Document 07/27/22 10:47 [facility] (Rec: 07/27/22 12:25 [facility] [id number]) Manual Assessments Soft Tissue Assessment Soft Tissue Mobility Assessment med joint line tenderness, tightness of ITB, VL, VMO, HS, Calf Joint Mobility Assessment Joint Mobility Assessment IR of femur L; R ER; B ER of tibia, ER of R foot>L; more lat patella L PT-OP-G Mobility & Gait Start: 07/26/22 17:51 Freq: Status: Active Protocol: Document 07/27/22 10:47 [facility] (Rec: 07/27/22 12:25 [facility] [id number]) OP Gait Assessment Comments Gait Comments dec push off L>R , dec stance time L PT-OP-J Posture/Palpation/Skin Start: 07/26/22 17:51 Freq: Status: Active Protocol: Document 11/24/22 16:09 [facility] (Rec: 11/24/22 18:17 [facility] [id number]) Posture Evaluation [facility] Postural Classification System Lumbar Protective Mechanism Left AP 2 Lumbar Protective Mechanism Right AP 2 Lumbar Protective Mechanism Left PA 5 Lumbar Protective Mechanism Right PA 3 PT-OP-K Range of Motion Start: 07/26/22 17:51 Freq: Status: Active Protocol: Document 07/27/22 10:47 [facility] (Rec: 07/27/22 12:25 [facility] [id number]) Knee Goniometric Range of Motion Knee Right Flexion Active (degrees) 130 Extension Active (degrees) 4 Comments ankle ROM B: knee to walk 4.25 in B Left Flexion Active (degrees) 125 Extension Active (degrees) 8 Comments pain under patella PT-OP-L Special Tests Start: 07/26/22 17:51 Freq: Status: Active Protocol: Document 07/27/22 10:47 [facility] (Rec: 07/27/22 12:25 [facility] [id number]) Special Tests Knee Special Tests Teodoro's Test Test Results positive B tightness Meyer's Compression Test Results neg L Apley's Compression Test Results neg L Thessaly Test 5 Degrees Test Results neg L Fredrick Test Test Results neg L Tripp Chondromalacia Test Results positive L Fito's Test Results neg L Straight Leg Raise Test Results 45 deg B Gian Test Results positive B for TFL and hip flexor and RF tightness Valgus- 25 Degrees Comments mild pain and laxity L Varus- 25 Degrees Test Results neg L Posterior Draw Test Results neg L PT-OP-M Strength Start: 07/26/22 17:51 Freq: Status: Active Protocol: Document 11/24/22 16:09 [facility] (Rec: 11/24/22 18:17 [facility] [id number]) Hip Strength Hip Manual Muscle Testing Right Flexion (L2) 5 Normal Extension (S1) 5 Normal Abduction 5 Normal Adduction 5 Normal External Rotation 5 Normal Internal Rotation 5 Normal Left Flexion (L2) 5 Normal Extension (S1) 5 Normal Abduction 5 Normal Adduction 5 Normal External Rotation 5 Normal Internal Rotation 5 Normal Knee Strength Knee Manual Muscle Testing Right Flexion (S2) 5 Normal Extension (L3) 5 Normal Left Flexion (S2) 5 Normal Extension (L3) 5 Normal Ankle/Foot Strength Ankle and Foot Manual Muscle Testing Right Dorsiflexion (L4) 5 Normal Plantarflexion (S1) 5 Normal Comments 20 heel raises B Left Dorsiflexion (L4) 5 Normal Plantarflexion (S1) 5 Normal PT-OP-T Assessment and Plan Start: 07/26/22 17:51 Freq: Status: Active Protocol: Document 01/24/23 11:02 [facility] (Rec: 01/24/23 11:03 [facility] [id number]) Physical Therapy Assessment Goals balance Short Term Goal (STG) Pt will be able to do 30sec SLS on LLE w/o lat shear or signficiant instability to show ability to wt accept in LLE 09/30-requiers cues and mirror and notes some discomfort after STG Duration achieved Usp Goal (LTG) Pt will report no difficulty w /knee on uneven surfaces. 09/30-hasn't tried 11/17/22: hasn't attempted dueto L knee pain. 11/24-pt idd a hike in the snow and did well but has only done that once LTG Duration 4/3 activities Short Term Goal (STG) Pt will be able to stand from a chair w/o pain in L knee STG Duration achieved 09/23 Usp Goal (LTG) Pt will be able to walk at least 3 miles on uneven surfaces w/o inc knee pain or swelling. 09/30-can do 1-2 miles consistantly 11/24-does one mile 2x/day but does have pain LTG Duration 4/3 strength Short Term Goal (STG) Pt will be indep w/HEP 09/23-limited d/t recent onset of hip and back pain 11/17/22: limited d/t recent past 2 weeks L knee pain sub patella. STG Duration achieved-advancing as able Commercial Makeup Artist Goal (LTG) pt will score at least 3/5 on LPM and 5/5 BLE strength w/o pain to show improved stability in order to inc pt ability to perform activity. 09/30-mostly achieved 11/24-MMT achieved; LPM AP limited LTG Duration 4/3 stairs Short Term Goal (STG) Pt will be able to ascend stairs without any pain in knee. 11/17/22: degressed, having pain inside knee and sub patella at this time. STG Duration achieved 09/23 (11/17/22 decreased tolerance asc/desc stair mgt) Usp Goal (LTG) Pt will be able to descend stairs without any pain in knee. 09/30-can most of the time but occ painful 11/17/22: has pain sub patella asc/descending and unableto fully extend L knee end range. LTG Duration 01/17 Assessment Summary Assessment From last visit nov 24: Pt has had recent flare up to his knee recently. He feels like his stiffness it overall better and intially was doing better w/ant L knee pain, but has had multiple regressions during this course of PT. He has great strength and can achieve full ext w/manual treatment during sessions, but it is not lasting btwn sessions. Balance is also much improvd.At this time, pt may benefit from further imaging ( MRI) and seeing electronic publishing specialist. Hep was adjusted to just what is mentioned above. Will keep chart open until pt sees MD and plan is made. Pt DC at this time d/t no longer attending PT and no new referral gotten. Physical Therapy Plan Discharge Physical Therapy Discharge Reasons No Longer Attending PT
== END 2023-01-27 08:54 | disposition home or self-care (01) ==
LOC: PHYS 16:00
PROVIDERS: Family Provider Family Medicine; PCP Family Medicine; Referring Provider Registered Nurse Ambulatory Care; Visit Provider Registered Nurse Ambulatory Care
DX: M25.562 Pain in left knee (principal); R26.2 Difficulty in walking, not elsewhere classified; M62.81 Muscle weakness (generalized)
CPT/HCPCS: 97110; 97112; 97140; 97162; 97535

== ENCOUNTER → 2023-04-07 09:58 | Outpatient (CLI) | payer OTHER, SELFPAY ==
--- NOTE | 2023-04-07 10:00 | DI.RAD.S_ITS ---
PROCEDURE: XR KNEE LT 3V INDICATIONS: pain TECHNIQUE: 3 views of the knee were acquired. COMPARISON: None. FINDINGS: Bones: No fractures or dislocations. No suspicious bony lesions. Enthesophytes of the patella are seen. Soft tissues: No joint effusion. No suspicious soft tissue calcifications. IMPRESSION: No acute abnormality of the left knee. Dictated by: Radhames Agarwal M.D. on 04/07/2023 at 10:26 Approved by: Radhames Agarwal M.D. on 04/07/2023 at 10:27
== END ==
PROVIDERS: Family Provider Family Medicine; PCP Family Medicine; Referring Provider Family Medicine; Visit Provider Family Medicine
DX: M25.562 Pain in left knee (principal)
CPT/HCPCS: 73562

== ENCOUNTER → 2024-07-14 08:11 | Outpatient (CLI) | payer OTHER, SELFPAY ==
[2024-07-14 08:54] LABS: Hematocrit 48.5 % (41-53); Hemoglobin 16.6 g/dL (13.5-17.5); Mean Corpuscular HGB Conc 34.2 % (30-36); Mean Corpuscular Hemoglobin 30.7 PG (26-34); Mean Corpuscular Volume 89.8 fL (80-100); Platelet Count 136 X10^3/uL (150-400); Red Cell Distribution Width 13.3 % (11.6-14.8); White Blood Cell Count 4.4 X10^3/uL (4.5-11.0)
[2024-07-14 09:15] LABS: Alanine Aminotransferase 25 IU/L (<50); Albumin 4.6 g/dL (3.5-5.0); Alkaline Phosphatase 49 U/L (38-126); Aspartate Aminotransferase 26 IU/L (17-59); BUN Creatinine Ratio 18.5 (6-22); Blood Urea Nitrogen 17 mg/dL (9-20); Calcium 9.4 mg/dL (8.4-10.2); Carbon Dioxide 23 mmol/L (22-32); Chloride 107 mmol/L (98-107); Cholesterol 191 mg/dL (140-199); Estimated Glomerular Filt Rate > 60 mL/min (>60); Globulin 2.3 g/dL (1.7-4.1); Glucose 105 mg/dL (70-100); HDL Cholesterol 52 mg/dL (40-60); HEMOLYSIS < 15 (0-50); LDL Cholesterol Calculated 125 mg/dL (<100); Potassium 4.6 mmol/L (3.4-5.1); Sodium 139 mmol/L (137-145); Total Protein 6.9 g/dL (6.3-8.2); Triglycerides 68 mg/dL (35-150)
[2024-07-14 09:43] LABS: Prostate Specific Antigen Scrn 0.738 ng/mL (0.1-4.0)
== END ==
PROVIDERS: Family Provider Family Medicine; PCP Family Medicine; Referring Provider Family Medicine; Visit Provider Family Medicine
DX: E78.2 Mixed hyperlipidemia (principal); Z12.5 Encounter for screening for malignant neoplasm of prostate
CPT/HCPCS: 36415; 80053; 80061; 85027; G0103

== ENCOUNTER → 2024-12-19 07:28 | Outpatient (CLI) | payer OTHER, SELFPAY ==
[2024-12-19 09:13] LABS: Cholesterol 220 mg/dL (140-199); HDL Cholesterol 48 mg/dL (40-60); LDL Cholesterol Calculated 153 mg/dL (<100); Triglycerides 94 mg/dL (35-150)
== END ==
PROVIDERS: Family Provider Family Medicine; PCP Family Medicine; Referring Provider Family Medicine; Visit Provider Family Medicine
DX: E78.5 Hyperlipidemia, unspecified (principal)
CPT/HCPCS: 36415; 80061

== ENCOUNTER → 2025-03-25 07:08 | Outpatient (CLI) | payer OTHER, SELFPAY ==
[2025-03-25 07:52] LABS: Cholesterol 193 mg/dL (140-199); HDL Cholesterol 53 mg/dL (40-60); LDL Cholesterol Calculated 126 mg/dL (<100); Triglycerides 72 mg/dL (35-150)
== END ==
PROVIDERS: Family Provider Family Medicine; PCP Family Medicine; Referring Provider Family Medicine; Visit Provider Family Medicine
DX: E78.5 Hyperlipidemia, unspecified (principal)
CPT/HCPCS: 36415; 80061

== ENCOUNTER → 2025-06-12 09:11 | Outpatient (CLI) | payer OTHER, SELFPAY | PROVIDERS: Family Provider Family Medicine; PCP Family Medicine; Referring Provider Family Medicine; Visit Provider Family Medicine | DX: R05.3 Chronic cough (principal); R06.09 Other forms of dyspnea; Z77.128 Contact with and (suspected) exposure to other hazards in the physical environment | CPT/HCPCS: 94060 ==

== ENCOUNTER 2025-08-29 11:51 | Day surgery (SDC) | payer OTHER, SELFPAY ==
--- NOTE | 2025-08-29 | PATH_ITS ---
[facility] Accession Number: [id number] No. of containers..01 Tissue . 01 Material submitted: . colon - COLON, SIGMOID @ 20 . 01 Diagnosis: COLON, SIGMOID @ 20: Hyperplastic polyp. [facility] 09/06/2025 1508 Local . 01 Electronically signed: . Angel Da Silva MD, Pathologist NPI- [id number] . 01 Gross description: . Received in formalin with two identifiers and sigmoid polyp, is a single eller to eller-brown soft tissue fragment 0.7 cm in greatest dimension. Submitted entirely in cassette A1. ([id number]) /[facility] 09/06/2025 1508 Local . 01 Pathologist provided ICD-10: K63.5 . 01 CPT . 180921 Specimen Comment: A courtesy copy of this report has been sent to [phone] Performed at: [address] [facility] [address], [place], [place] [id number] MD Angel Da Silva MD Phone: [phone]
--- NOTE | 2025-08-29 06:45 | P.HP_ITS ---
History of Present Illness History of Present Illness Date Patient Seen: 08/29/25 Chief complaint: Colonoscopy Narrative: Presents for screening colonoscopy today. [facility] Medical History (Updated 08/29/25 @ 06:45 by Ifeanyi Jones MD) Exposure to environmental toxic substances Chronic cough LEROY (dyspnea on exertion) Seasonal allergic reaction Pain in toe of right foot Chronic pain of left knee Chronic neck pain Screen for colon cancer Patellofemoral syndrome Flu-like symptoms URI with cough and congestion Sinusitis Eczema (~2006) Migraines (~1989) Shoulder pain (~2004) Chicken pox (~1977) Chronic foot pain (~2004) Chronic neck and back pain (~2004) Hyperlipidemia Surgical History H/O vasectomy (~2002) Family History Father Stroke COPD (chronic obstructive pulmonary disease) Mother No problems noted. Brother Colon cancer Sister Breast cancer Grandfather History of heart disease Grandmother Diabetes mellitus Grandfather Rheumatoid arthritis Meds Home Medications and Allergies Home Medications ?Medication ?Instructions ?Recorded ?Confirmed ?Type albuterol sulfate 90 mcg/actuation 2 puff inhalation Q 6H PRN 08/08/24 07/11/25 Rx aerosol inhaler (Ventolin HFA) shortness of breath or wheezing #6.7 grams fluticasone propionate 45 2 puff inhalation BID #12 gr ams 05/31/25 07/11/25 Rx mcg-salmeterol 21 mcg/actuation HFA inhaler (Advair HFA) sodium,potassium,mag sulfates 17.5 See Rx Instructions PO .COMPLEX 07/26/25 Rx gram-3.13 gram-1.6 gram oral soln #354 mL (Suprep Bowel Prep Kit) budesonide-formoterol HFA 80 2 inh inhalation BID #10. 2 grams 08/07/25 Rx mcg-4.5 mcg/actuation aerosol inhaler (Symbicort) Allergies Allergy/AdvReac Type Severity Reaction Status Date / Time simvastatin AdvReac Intermediate Muscle Pain Uncoded 07/11/25 09:25 Exam Narrative Exam Narrative: Const General: healthy appearing, comfortable and no acute distress Orientation: alert and oriented x3 HENMT Ears: hearing grossly normal bilaterally Eyes Visual Villareal: normal visual villareal by confrontation Conjunctivae: conjunctivae normal Sclera: sclerae normal EOM: EOM intact bilaterally Resp Effort & Inspection: normal respiratory effort and able to speak in complete sentences Cardio Rate: regular rate GI Palpation: soft (NT) Extrem General: no pedal edema and no calf tenderness Assessment & Plan Assessment and plan (1) Encounter for screening colonoscopy: Status: Acute Plan Plan colonoscopy, possible biopsy. The risks, benefits and options regarding the procedure were explained to the patient in detail. Risk discussion included but not limited to: bleeding, perforation, unable to reach cecum, missed lesion. The patient was encouraged to ask questions and they were answered to their satisfaction. The patient understands and is agreeable to proceed. Time-Based Coding :: [TOTAL MINUTES] spent with patient and on the chart (including review of chart, obtaining history, exam, reviewing outside data, placing orders, documenting exam and treatment plan, and counseling patient) on [DATE]. [employer] Technical Sales Consultant Document charge(s): Yes Charge Codes Inpatient/observation care including admit and discharge same day: [id number]
[2025-08-29 12:14] VITALS: BP 121/76; PULSE 66; RESP 16; TEMP 36.4; O2SAT 96
[2025-08-29] MEDS: LACTATED RINGERS 1,000 ML 42 ML IV (12:27)
--- NOTE | 2025-08-29 12:46 | P.OP.COLON_ITS ---
Operative Date/Time/Diagnoses Date of procedure: 08/29/25 Time of procedure: 13:06 Pre-op diagnosis: Screening colonoscopy Post-op diagnosis: other (sigmoid polyp) Procedure & Clinicians Study performed: Screening colonoscopy with polypectomy Same procedure(s) as scheduled: Yes Indications: 59yo M, screening colonoscopy Surgeon: Ifeanyi Jones Anesthesia Type: MAC +/- Procedure Notes SCOAP/Timeout: Performed Procedure in detail: Colonoscopy Patient placed in left lateral recumbent position. Time out was performed. Procedural sedation was administered by anesthesia. Examination began with a thorough inspection of the perianal area. There was no evidence of fissures, fistulae, external hemorrhoids or cutaneous malignancy. The colonoscope was then placed into the rectum and the lumen was insufflated with carbon dioxide. The scope was carefully advanced forward. Ultimately the cecum was intubated and confirmed by identification of the ileocecal valve, the appendiceal orifice and the confluence of the taenia. The scope was then slowly withdrawn examining the colon thoroughly in all directions. In the rectum, retroflexion of the scope was performed for inspection of the distal rectum and anal canal. ?Significant colonoscopy findings: ?1. Quality of the preparation-good, [place] 2-3, improved with irri gation/suction ?2. Single 3mm, sessile, benign appearing polyp, 20cm in sigmoid, removed with cold snare and retrieved for pathology Scope withdrawal time: 6 minutes Findings: polyp(s) Specimen(s): other (polyp) Estimated Blood Loss: 5 Complications: none Impression: Sigmoid polyp Post-procedure Recommendations: Colonoscopy in 10 years Plan for aftercare: PACU then home Follow up: as needed Disposition: PACU
[2025-08-29 13:05] VITALS: BP 102/58; PULSE 59; RESP 16; TEMP 36.7; O2SAT 94
[2025-08-29 13:10] VITALS: BP 104/60; PULSE 59; RESP 16; O2SAT 94
[2025-08-29 13:15] VITALS: BP 103/61; PULSE 60; RESP 16; O2SAT 96
[2025-08-29 13:16] VITALS: BP 104/61; PULSE 53; RESP 14; TEMP 36.2; O2SAT 96
== END 2025-08-29 13:30 | disposition home or self-care (01) ==
PROVIDERS: Surgery; Family Provider Family Medicine; PCP Family Medicine; Referring Provider Family Medicine; Visit Provider Surgery
PROC: 0DJD8ZZ Inspection of Lower Intestinal Tract, Via Natural or Artificial Opening Endoscopic (ICD-10-PCS; CPT 45378; principal; 2025-08-29 13:00)
DX: Z12.11 Encounter for screening for malignant neoplasm of colon (principal); K63.5 Polyp of colon
CPT/HCPCS: 45385; J2704; J7120

== ENCOUNTER → 2025-09-05 12:05 | Outpatient (CLI) | payer OTHER, SELFPAY ==
--- NOTE | 2025-09-05 12:06 | DI.RAD.S_ITS ---
PROCEDURE: XR KNEE LT 3V INDICATIONS: chronic left knee pain TECHNIQUE: 3 views of the knee were acquired. COMPARISON: [facility], , XR KNEE LT 3V, 04/07/2023, 10:03. FINDINGS: Bones: No fractures or dislocations. No suspicious bony lesions. On the sunrise view, there is moderate patellofemoral joint space narrowing seen. Osteophyte formation can be seen along the margins of the patella. Soft tissues: No joint effusion. No suspicious soft tissue calcifications. IMPRESSION: Focal patellofemoral joint degenerative change. If it would be helpful for clinical management decision making, please consider a dedicated, scheduled knee MRI for further evaluation (assuming that there is no contraindication). Dictated by: Garrison Marcial M.D. on 09/07/2025 at 19:54 Approved by: Garrison Marcial M.D. on 09/07/2025 at 19:54
== END ==
LOC: RAD 12:06
PROVIDERS: Family Provider Family Medicine; PCP Family Medicine; Referring Provider Family Medicine; Visit Provider Family Medicine
DX: M25.562 Pain in left knee (principal)
CPT/HCPCS: 73562

== ENCOUNTER → 2025-10-08 17:06 | Outpatient (CLI) | payer OTHER, SELFPAY ==
--- NOTE | 2025-10-08 17:07 | DI.MRI.S_ITS ---
PROCEDURE: MR KNEE LT WO CON INDICATIONS: knee pain -= left TECHNIQUE: Noncontrast sagittal PD fast spin echo and T2 fast spin echo with fat saturation, sagittal 3-D FLASH with fat saturation; coronal T1 spin echo and PD fast spin echo with fat saturation, and axial PD fast spin echo with fat saturation through the knee. COMPARISON: [facility], CR, XR KNEE LT 3V, 09/05/2025, 12:29. FINDINGS: Image quality: Diagnostic. Menisci: The medial meniscus is intact. The lateral meniscus is intact. Ligaments: The ACL is intact. The PCL is intact. The MCL is intact. The LCL is intact. The posterolateral supporting structures are intact. Extensor Mechanism: Quadriceps tendon is intact. The patellar tendon is intact. The patellar retinacula are intact. Osseous Structures: There is no fracture or dislocation. No suspicious marrow replacing process. No joint effusion. A 1 cm calcified body in the posterior intercondylar recess (series 13, image 24). Hoffa's fat pad is unremarkable. Articular Cartilage: Patellofemoral compartment: Full-thickness articular cartilage loss of the central and medial femoral trochlea, with the area of full-thickness cartilage loss measuring 2 x 2.9 cm. There is deep thinning in the periphery of this area of full-thickness articular cartilage loss in the femoral trochlea. Intermediate articular cartilage thinning of the median patellar ridge and medial patellar facet. Medial compartment: Cartilage of the medial tibiofemoral compartment is intact. Lateral compartment: Cartilage of the lateral tibiofemoral compartment is intact. Other: The visualized muscles and tendons appear normal for age. No Roach's cyst. Normal neurovascular signal. Subcutaneous soft tissues appear normal. IMPRESSION: Severe chondromalacia of the femoral trochlea with broad grade 4 cartilage loss of the medial and central trochlea. Calcified 1 cm intra-articular body in the intercondylar notch. No meniscal tear or ligamentous injury. Dictated by: Schuyler Bonner M.D. on 10/09/2025 at 13:24 Approved by: Schuyler Bonner M.D. on 10/09/2025 at 13:29
== END ==
PROVIDERS: PCP Family Medicine; Referring Provider Family Medicine; Visit Provider Family Medicine
DX: M94.262 Chondromalacia, left knee (principal); M23.42 Loose body in knee, left knee; M25.562 Pain in left knee
CPT/HCPCS: 73721

== ENCOUNTER → 2025-10-15 06:56 | Outpatient (CLI) | payer OTHER, SELFPAY ==
[2025-10-15 08:35] LABS: Cholesterol 194 mg/dL (140-199); HDL Cholesterol 52 mg/dL (40-60); Triglycerides 74 mg/dL (35-150)
== END ==
PROVIDERS: PCP Family Medicine; Referring Provider Family Medicine; Visit Provider Family Medicine
DX: E78.2 Mixed hyperlipidemia (principal)
CPT/HCPCS: 36415; 80061; 83090; 85651; 86140